=== PATIENT | male | born 1945 | race Caucasian/White ===

== ENCOUNTER → 2017-10-26 | Outpatient (CLI) | payer MEDICARE, OTHER ==
[~2017-10-26] MED LIST: FINA5TAB PO; HYDR-3720 PO; INSU100I10 SQ; LEVO500T69 PO; LISI5TAB PO; LVT.088T PO; SULF1TAB7 PO; TAMS0.4C2 PO
== END ==
LOC: WOUNDCARE 08:03
PROVIDERS: ATTEND Nurse Practitioner
DX: L97.212 Non-pressure chronic ulcer of right calf with fat layer exposed (principal)
CPT/HCPCS: 11042; 11045

== ENCOUNTER → 2017-11-02 | Outpatient (CLI) | payer MEDICARE, OTHER | LOC: WOUNDCARE 08:26 | PROVIDERS: ATTEND Nurse Practitioner | DX: E11.622 Type 2 diabetes mellitus with other skin ulcer (principal); L97.212 Non-pressure chronic ulcer of right calf with fat layer exposed; L97.312 Non-pressure chronic ulcer of right ankle with fat layer exposed; L97.512 Non-pressure chronic ulcer of other part of right foot with fat layer exposed | CPT/HCPCS: 11042 ==

== ENCOUNTER → 2017-11-09 | Outpatient (CLI) | payer MEDICARE, OTHER | LOC: WOUNDCARE 08:46 | PROVIDERS: ATTEND Nurse Practitioner | DX: E11.622 Type 2 diabetes mellitus with other skin ulcer (principal); L97.212 Non-pressure chronic ulcer of right calf with fat layer exposed; L97.512 Non-pressure chronic ulcer of other part of right foot with fat layer exposed; L97.312 Non-pressure chronic ulcer of right ankle with fat layer exposed | CPT/HCPCS: 11042; 11043; 87070; 87075; 87077; 87205 ==

== ENCOUNTER → 2017-11-30 | Outpatient (CLI) | payer MEDICARE, OTHER | LOC: WOUNDCARE 08:49 | PROVIDERS: ATTEND Nurse Practitioner | DX: E11.622 Type 2 diabetes mellitus with other skin ulcer (principal); L97.212 Non-pressure chronic ulcer of right calf with fat layer exposed | CPT/HCPCS: 11042 ==

== ENCOUNTER → 2017-12-07 | Outpatient (CLI) | payer MEDICARE, OTHER | LOC: WOUNDCARE 08:47 | PROVIDERS: ATTEND Nurse Practitioner | DX: E11.622 Type 2 diabetes mellitus with other skin ulcer (principal); L97.212 Non-pressure chronic ulcer of right calf with fat layer exposed | CPT/HCPCS: 11042; 87070; 87075; 87077; 87101; 87205 ==

== ENCOUNTER → 2017-12-14 | Outpatient (CLI) | payer MEDICARE, OTHER ==
[~2017-12-14] MED LIST changes: +ASPI-586 PO; +ATOR40TA70 PO; +FURO20TA4 PO; +GABA-488 PO; +HUM100VI13 SQ; +HYDR-3816 PO; +LEVO112T55 PO; +LISI10TA2 PO; +OXYB5TAB9 PO; +POTA20TA8 PO; +VITA-189 PO
== END ==
LOC: WOUNDCARE 08:49
PROVIDERS: ATTEND Nurse Practitioner
DX: E11.622 Type 2 diabetes mellitus with other skin ulcer (principal); L97.212 Non-pressure chronic ulcer of right calf with fat layer exposed
CPT/HCPCS: 11042

== ENCOUNTER → 2017-12-15 | Outpatient (CLI) | payer MEDICARE, OTHER ==
--- NOTE | 2017-12-15 11:30 | Diagnostic Imaging Report ---
INDICATION: Nonhealing wound of the right foot and ankle. TIME OF EXAMINATION: 11:15 AM. FINDINGS: Three views of the right foot were obtained. Postsurgical changes of amputation at the level of the distal metatarsals and phalanges are noted. There has been partial amputation of the distal first metatarsal and distal second metatarsal. The resection margins appear to be smooth. The overlying soft tissues are intact. No soft tissue gas is identified. No bony destructive changes are detected. There are soft tissue calcifications. Extensive vascular calcifications are present. There is a questionable soft tissue ulcer along the medial aspect of the right foot at the level of the proximal first metatarsal; however, the bony structures deep to this appear to be intact. No periosteal reaction or bone destruction is detected to suggest osteomyelitis. The midfoot and hindfoot are unremarkable. IMPRESSION: Extensive chronic and postsurgical changes, as described. No definite plain film findings to suggest osteomyelitis are identified. Dictated by: Dictated on workstation # [id number]
== END ==
LOC: RAD 10:39
PROVIDERS: ATTEND Nurse Practitioner
DX: E11.622 Type 2 diabetes mellitus with other skin ulcer (principal); L97.212 Non-pressure chronic ulcer of right calf with fat layer exposed; Z98.890 Other specified postprocedural states
CPT/HCPCS: 73630

== ENCOUNTER → 2017-12-15 | Outpatient (CLI) | payer MEDICARE, OTHER ==
--- NOTE | 2017-12-15 11:22 | Diagnostic Imaging Report ---
INDICATION: Non-pressure ulcer to the right foot and ankle. TIME OF EXAMINATION: 11:28 a.m. FINDINGS: Three views of the right ankle were obtained. There are extensive vascular calcifications present. The ankle mortise is maintained. Talar dome is smooth. No fractures are seen. No definite bony destructive changes are identified to suggest osteomyelitis. IMPRESSION: Chronic changes. No acute feature is detected. Dictated by: Dictated on workstation # [id number]
== END ==
LOC: RAD 11:05
PROVIDERS: ATTEND Surgery
DX: E11.622 Type 2 diabetes mellitus with other skin ulcer (principal); L97.212 Non-pressure chronic ulcer of right calf with fat layer exposed
CPT/HCPCS: 73610

== ENCOUNTER → 2017-12-21 | Outpatient (CLI) | payer MEDICARE, OTHER | LOC: WOUNDCARE 08:48 | PROVIDERS: ATTEND Nurse Practitioner | DX: E11.622 Type 2 diabetes mellitus with other skin ulcer (principal); L97.312 Non-pressure chronic ulcer of right ankle with fat layer exposed | CPT/HCPCS: 11042; 11100 ==

== ENCOUNTER → 2017-12-28 | Outpatient (CLI) | payer MEDICARE, OTHER | LOC: WOUNDCARE 08:59 | PROVIDERS: ATTEND Nurse Practitioner | DX: E11.622 Type 2 diabetes mellitus with other skin ulcer (principal); L97.212 Non-pressure chronic ulcer of right calf with fat layer exposed; L97.312 Non-pressure chronic ulcer of right ankle with fat layer exposed; L97.512 Non-pressure chronic ulcer of other part of right foot with fat layer exposed | CPT/HCPCS: 11042 ==

== ENCOUNTER → 2018-01-04 | Outpatient (CLI) | payer MEDICARE, OTHER | LOC: WOUNDCARE 09:01 | PROVIDERS: ATTEND Nurse Practitioner | DX: E11.622 Type 2 diabetes mellitus with other skin ulcer (principal); L97.212 Non-pressure chronic ulcer of right calf with fat layer exposed; L97.312 Non-pressure chronic ulcer of right ankle with fat layer exposed; L97.512 Non-pressure chronic ulcer of other part of right foot with fat layer exposed | CPT/HCPCS: 11042 ==

== ENCOUNTER → 2018-01-11 | Outpatient (CLI) | payer MEDICARE, OTHER | LOC: WOUNDCARE 08:25 | PROVIDERS: ATTEND Nurse Practitioner | DX: E11.622 Type 2 diabetes mellitus with other skin ulcer (principal); L97.512 Non-pressure chronic ulcer of other part of right foot with fat layer exposed; L97.212 Non-pressure chronic ulcer of right calf with fat layer exposed; L97.312 Non-pressure chronic ulcer of right ankle with fat layer exposed; L03.115 Cellulitis of right lower limb | CPT/HCPCS: 11042; 15271 ==

== ENCOUNTER 2018-01-18 12:09 | Outpatient (RCR) | payer MEDICARE, OTHER ==
[2017-12-15 15:43] VITALS: BP 110/59
[2017-12-15 15:46] VITALS: BP 110/59
[2017-12-15 16:45] VITALS: BP 110/59
[2017-12-16 13:17] VITALS: BP 119/55
[2017-12-17 13:06] VITALS: BP 138/66
[2017-12-17] MEDS: VANCOMYCIN 1,750 MG/NS 500 ML IVPB IV SCH ×2 (13:12)
[2017-12-18] MEDS: VANCOMYCIN 1,750 MG/NS 500 ML IVPB IV SCH ×2 (10:24)
[2017-12-18 12:30] VITALS: BP 130/68
[2017-12-19] MEDS: VANCOMYCIN 1,750 MG/NS 500 ML IVPB IV SCH ×2 (09:25)
[2017-12-19 11:32] VITALS: BP 134/74
[2017-12-20] MEDS: VANCOMYCIN 1,750 MG/NS 500 ML IVPB IV SCH ×2 (13:19)
[2017-12-20 13:20] VITALS: BP 120/52
[2017-12-20 15:18] VITALS: BP 120/52
[2017-12-21 12:40] VITALS: BP 118/59
[2017-12-21] MEDS: VANCOMYCIN 1,750 MG/NS 500 ML IVPB IV SCH ×2 (12:56)
[2017-12-21 15:10] VITALS: BP 118/59
[2017-12-22] MEDS: VANCOMYCIN 1,750 MG/NS 500 ML IVPB IV SCH ×2 (13:38)
[2017-12-22 15:45] VITALS: BP 124/58
[2017-12-23 12:30] VITALS: BP 131/70
[2017-12-23] MEDS: VANCOMYCIN 1,750 MG/NS 500 ML IVPB IV SCH ×2 (12:50)
[2017-12-24 12:53] VITALS: BP 109/54
[2017-12-24] MEDS: VANCOMYCIN 1,750 MG/NS 500 ML IVPB IV SCH ×2 (13:32)
[2017-12-24 15:33] VITALS: BP 109/54
[2017-12-25 09:03] VITALS: BP 131/70
[2017-12-25] MEDS: VANCOMYCIN 1,750 MG/NS 500 ML IVPB IV SCH ×2 (09:28)
[2017-12-25 11:39] VITALS: BP 131/70
[2017-12-26] MEDS: VANCOMYCIN 1,750 MG/NS 500 ML IVPB IV SCH ×2 (08:56)
[2017-12-26 09:05] VITALS: BP 142/75
[2017-12-26 11:00] VITALS: BP 142/75
[2017-12-27 12:53] VITALS: BP 116/56
[2017-12-27] MEDS: VANCOMYCIN 1,750 MG/NS 500 ML IVPB IV SCH ×2 (13:11)
[2017-12-27 15:05] VITALS: BP 116/56
[2017-12-28] MEDS: VANCOMYCIN 1,750 MG/NS 500 ML IVPB IV SCH ×2 (13:12)
[2017-12-28 13:15] VITALS: BP 139/64
[2017-12-29] MEDS: VANCOMYCIN 1,750 MG/NS 500 ML IVPB IV SCH ×2 (13:49)
[2017-12-29 14:35] VITALS: BP 112/61
[2017-12-29 15:55] VITALS: BP 112/61
[2017-12-30] MEDS: VANCOMYCIN 1,750 MG/NS 500 ML IVPB IV SCH ×2 (13:02)
[2017-12-30 13:09] VITALS: BP 122/62
[2017-12-31 12:20] VITALS: BP 115/61
[2017-12-31 12:21] VITALS: BP 115/61
[2017-12-31] MEDS: VANCOMYCIN 1,750 MG/NS 500 ML IVPB IV SCH ×2 (12:40)
[2017-12-31 14:47] VITALS: BP 115/61
[2018-01-01 09:05] VITALS: BP 137/71
[2018-01-01] MEDS: VANCOMYCIN 1,750 MG/NS 500 ML IVPB IV SCH ×2 (09:21)
[2018-01-02 09:00] VITALS: BP 128/95
[2018-01-02] MEDS: VANCOMYCIN 1,750 MG/NS 500 ML IVPB IV SCH ×2 (09:12)
[2018-01-03] MEDS: VANCOMYCIN 1,750 MG/NS 500 ML IVPB IV SCH ×2 (12:58)
[2018-01-03 15:10] VITALS: BP 119/81
[2018-01-05] MEDS: VANCOMYCIN 1,750 MG/NS 500 ML IVPB IV SCH ×2 (12:25)
[2018-01-05 12:26] VITALS: BP 114/61
[2018-01-05 14:33] VITALS: BP 114/61
[2018-01-06] MEDS: VANCOMYCIN 1,750 MG/NS 500 ML IVPB IV SCH ×2 (13:20)
[2018-01-06 15:36] VITALS: BP 122/69
[2018-01-07] MEDS: VANCOMYCIN 1,750 MG/NS 500 ML IVPB IV SCH ×2 (13:03)
[2018-01-07 15:03] VITALS: BP 124/64
[2018-01-08 09:20] VITALS: BP 125/69
[2018-01-08] MEDS: VANCOMYCIN 1,750 MG/NS 500 ML IVPB IV SCH ×2 (09:24)
[2018-01-09 09:13] VITALS: BP 143/77
[2018-01-09] MEDS: VANCOMYCIN 1,750 MG/NS 500 ML IVPB IV SCH ×2 (09:15)
[2018-01-10] MEDS: VANCOMYCIN 1,750 MG/NS 500 ML IVPB IV SCH ×2 (13:20)
[2018-01-10 15:30] VITALS: BP 115/60
[2018-01-13] MEDS: VANCOMYCIN 1,750 MG/NS 500 ML IVPB IV SCH ×2 (13:40)
[2018-01-13 15:45] VITALS: BP 132/65
[2018-01-14] MEDS: VANCOMYCIN 1,750 MG/NS 500 ML IVPB IV SCH ×2 (12:36)
[2018-01-14 13:20] VITALS: BP 118/66
[2018-01-15] MEDS: VANCOMYCIN 1,750 MG/NS 500 ML IVPB IV SCH ×2 (09:26)
[2018-01-15 11:34] VITALS: BP 134/73
[2018-01-16] MEDS: VANCOMYCIN 1,750 MG/NS 500 ML IVPB IV SCH ×2 (09:48)
[2018-01-16 11:52] VITALS: BP 125/68
[2018-01-17] MEDS: VANCOMYCIN 1,750 MG/NS 500 ML IVPB IV SCH ×2 (13:18)
[2018-01-17 15:34] VITALS: BP 129/68
[~2018-01-18] VITALS: Ht 167.6 cm; Wt 75.3 kg
[~2018-01-18 12:09] MED LIST changes: +INFLUENZA TRIvalent 2017-2018 0.5 ML/45 MCG SYR IM ONE; +TROUGH ORDER-PHARMACY XX NR; +TROUGH ORDER-PHARMACY XX ONE; +VANCOMYCIN 1,750 MG/NS 500 ML IVPB IV NR; +VANCOMYCIN 1250 MG/NS 250 ML IVPB IV SCH; +VANCOMYCIN INJECTION 500 MG in NS (IVPB) 100 ML IV NR
[2018-01-18 12:40] VITALS: BP 129/65
[2018-01-21] MEDS ORDERED: TROUGH ORDER-PHARMACY XX NR (13:00)
== END 2018-03-15 | disposition home or self-care (01) ==
LOC: SDC 12:09
PROVIDERS: ATTEND Nurse Practitioner
DX: E11.622 Type 2 diabetes mellitus with other skin ulcer (principal); L97.212 Non-pressure chronic ulcer of right calf with fat layer exposed
CPT/HCPCS: 36415; 36569; 76937; 80202; 82565; 96365; 96366; 99211; 99212

== ENCOUNTER 2019-01-20 10:51 | Outpatient (RCR) | payer MEDICARE, OTHER ==
[2018-12-10 09:00] VITALS: BP 128/63
[2018-12-10] MEDS: cefTRIAXone 2,000 MG/SWFI 20 ML IV PUSH IV SCH ×2 (09:40)
[2018-12-10] MEDS: DAPTOMYCIN IV SCH (09:45)
[2018-12-10] MEDS: NS IV SCH (09:45)
[2018-12-11 09:05] VITALS: BP 103/57
[2018-12-11] MEDS: cefTRIAXone 2,000 MG/SWFI 20 ML IV PUSH IV SCH ×2 (09:20)
[2018-12-11] MEDS: NS IV SCH (09:30)
[2018-12-11] MEDS: DAPTOMYCIN IV SCH (09:30)
[2018-12-12] MEDS: cefTRIAXone 2,000 MG/SWFI 20 ML IV PUSH IV SCH ×2 (14:40)
[2018-12-12 14:48] LABS: BASOPHILS % (AUTO) 0 % (0-10); EOSINOPHILS # (AUTO) 0.2 10^3/uL (0.0-0.3); EOSINOPHILS % (AUTO) 4 % (0-10); HEMATOCRIT 36 % (40-54); HEMOGLOBIN 12.6 G/DL (13.3-17.7); LYMPHOCYTES # (AUTO) 0.5 X 10^3 (1.0-4.0); LYMPHOCYTES % (AUTO) 7 % (12-44); MEAN CORPUSCULAR HEMOGLOBIN 33 PG (25-34); MEAN CORPUSCULAR HGB CONC 35 G/DL (32-36); MEAN CORPUSCULAR VOLUME 96 FL (80-99); MEAN PLATELET VOLUME 9.4 FL (7.4-10.4); MONOCYTES # (AUTO) 0.9 X 10^3 (0.0-1.0); MONOCYTES % (AUTO) 13 % (0-12); NEUTROPHILS # (AUTO) 5.3 X 10^3 (1.8-7.8); NEUTROPHILS % (AUTO) 77 % (42-75); PLATELET COUNT 151 10^3/uL (130-400); RED CELL DISTRIBUTION WIDTH 15.8 % (10.0-14.5); WHITE BLOOD COUNT 6.9 10^3/uL (4.3-11.0)
[2018-12-12 15:09] LABS: ALANINE AMINOTRANSFERASE 11 U/L (0-55); ALBUMIN 3.4 GM/DL (3.2-4.5); ALKALINE PHOSPHATASE 96 U/L (40-136); BILIRUBIN,TOTAL 0.8 MG/DL (0.1-1.0); BUN/CREATININE RATIO 25; CALCIUM 9.2 MG/DL (8.5-10.1); CARBON DIOXIDE 20 MMOL/L (21-32); CHLORIDE 104 MMOL/L (98-107); CREATINE KINASE 49 U/L (30-200); CREATININE SERUM 1.02 MG/DL (0.60-1.30); GFR ESTIMATED > 60; GLUCOSE 174 MG/DL (70-105); POTASSIUM 4.5 MMOL/L (3.6-5.0); SODIUM 133 MMOL/L (135-145); TOTAL PROTEIN 6.5 GM/DL (6.4-8.2)
[2018-12-12] MEDS: NS IV SCH (15:09)
[2018-12-12] MEDS: DAPTOMYCIN IV SCH (15:09)
[2018-12-12 15:20] LABS: EOSINOPHILS % (MANUAL) 5 %; ERYTHROCYTE SEDIMENTATION RATE 12 MM/HR (0-30); LYMPHOCYTES % (MANUAL) 3 %; MONOCYTES % (MANUAL) 8 %; NEUTROPHILS % (MANUAL) 84 %; RBC MORPH NORMAL
[2018-12-12 16:00] VITALS: BP 123/60
[2018-12-13] MEDS: cefTRIAXone 2,000 MG/SWFI 20 ML IV PUSH IV SCH ×2 (14:40)
[2018-12-13] MEDS: DAPTOMYCIN IV SCH (15:12)
[2018-12-13] MEDS: NS IV SCH (15:12)
[2018-12-13 15:42] VITALS: BP 127/58
[2018-12-14] MEDS: cefTRIAXone 2,000 MG/SWFI 20 ML IV PUSH IV SCH ×2 (14:00)
[2018-12-14] MEDS: DAPTOMYCIN IV SCH (14:30)
[2018-12-14] MEDS: NS IV SCH (14:30)
[2018-12-14 15:10] VITALS: BP 111/64
[2018-12-15 13:10] VITALS: BP 109/54
[2018-12-15] MEDS: cefTRIAXone 2,000 MG/SWFI 20 ML IV PUSH IV SCH ×2 (13:24)
--- NOTE | 2018-12-15 13:30 | NUR ---
MIDLINE LEAKING WHEN FLUSHED. EXCESSIVE BLEEDING ET DRAINAGE NOTED. MIDLINE DC'D.
[2018-12-15] MEDS: DAPTOMYCIN IV SCH (14:15)
[2018-12-15] MEDS: NS IV SCH (14:15)
[2018-12-16] MEDS: cefTRIAXone 2,000 MG/SWFI 20 ML IV PUSH IV SCH ×2 (13:00)
[2018-12-16 13:13] VITALS: BP 109/71
[2018-12-16] MEDS: DAPTOMYCIN IV SCH (13:18)
[2018-12-16] MEDS: NS IV SCH (13:18)
[2018-12-17] MEDS: NS IV SCH (09:56)
[2018-12-17] MEDS: DAPTOMYCIN IV SCH (09:56)
[2018-12-17] MEDS: cefTRIAXone 2,000 MG/SWFI 20 ML IV PUSH IV SCH ×2 (09:56)
[2018-12-17 10:00] VITALS: BP 134/70
[2018-12-18 09:20] VITALS: BP 137/66
[2018-12-18] MEDS: NS IV SCH (09:53)
[2018-12-18] MEDS: DAPTOMYCIN IV SCH (09:53)
[2018-12-18] MEDS: cefTRIAXone 2,000 MG/SWFI 20 ML IV PUSH IV SCH ×2 (09:53)
[2018-12-19] MEDS: cefTRIAXone 2,000 MG/SWFI 20 ML IV PUSH IV SCH ×2 (13:42)
[2018-12-19 13:50] VITALS: BP 121/69
[2018-12-19] MEDS: DAPTOMYCIN IV SCH (14:16)
[2018-12-19] MEDS: NS IV SCH (14:16)
[2018-12-20 13:50] VITALS: BP 118/70
[2018-12-20] MEDS: cefTRIAXone 2,000 MG/SWFI 20 ML IV PUSH IV SCH ×2 (13:50)
[2018-12-20] MEDS: NS IV SCH (13:58)
[2018-12-20] MEDS: DAPTOMYCIN IV SCH (13:58)
[2018-12-20 14:09] LABS: BASOPHILS % (AUTO) 0 % (0-10); EOSINOPHILS # (AUTO) 0.3 10^3/uL (0.0-0.3); EOSINOPHILS % (AUTO) 4 % (0-10); HEMATOCRIT 39 % (40-54); HEMOGLOBIN 13.6 G/DL (13.3-17.7); LYMPHOCYTES # (AUTO) 0.6 X 10^3 (1.0-4.0); LYMPHOCYTES % (AUTO) 8 % (12-44); MEAN CORPUSCULAR HGB CONC 35 G/DL (32-36); MEAN CORPUSCULAR VOLUME 97 FL (80-99); MONOCYTES # (AUTO) 0.9 X 10^3 (0.0-1.0); MONOCYTES % (AUTO) 12 % (0-12); NEUTROPHILS % (AUTO) 77 % (42-75); PLATELET COUNT 152 10^3/uL (130-400); WHITE BLOOD COUNT 7.8 10^3/uL (4.3-11.0)
[2018-12-20 14:11] LABS: MEAN CORPUSCULAR HEMOGLOBIN 33 PG (25-34)
[2018-12-20 14:13] LABS: ALANINE AMINOTRANSFERASE 13 U/L (0-55); ALBUMIN 3.7 GM/DL (3.2-4.5); ALKALINE PHOSPHATASE 100 U/L (40-136); BILIRUBIN,TOTAL 0.9 MG/DL (0.1-1.0); BUN/CREATININE RATIO 21; CALCIUM 9.3 MG/DL (8.5-10.1); CARBON DIOXIDE 26 MMOL/L (21-32); CHLORIDE 102 MMOL/L (98-107); CREATINE KINASE 28 U/L (30-200); CREATININE SERUM 1.07 MG/DL (0.60-1.30); GFR ESTIMATED > 60; GLUCOSE 225 MG/DL (70-105); POTASSIUM 4.7 MMOL/L (3.6-5.0); SODIUM 134 MMOL/L (135-145); TOTAL PROTEIN 7.3 GM/DL (6.4-8.2)
[2018-12-20 15:12] LABS: BAND NEUTROPHILS 0 %; BASOPHILS % (MANUAL) 1 %; EOSINOPHILS % (MANUAL) 2 %; LYMPHOCYTES % (MANUAL) 6 %; MONOCYTES % (MANUAL) 7 %; NEUTROPHILS % (MANUAL) 84 %
[2018-12-20 15:13] LABS: ANISOCYTOSIS SLIGHT; ERYTHROCYTE SEDIMENTATION RATE 13 MM/HR (0-30); POLYCHROMASIA SLIGHT
[2018-12-21] MEDS: cefTRIAXone 2,000 MG/SWFI 20 ML IV PUSH IV SCH ×2 (13:49)
[2018-12-21] MEDS: DAPTOMYCIN IV SCH (13:58)
[2018-12-21] MEDS: NS IV SCH (13:58)
[2018-12-21 14:35] VITALS: BP 172/69
[2018-12-22] MEDS: cefTRIAXone 2,000 MG/SWFI 20 ML IV PUSH IV SCH ×2 (12:03)
[2018-12-22] MEDS: NS IV SCH (12:15)
[2018-12-22] MEDS: DAPTOMYCIN IV SCH (12:15)
[2018-12-22 12:47] VITALS: BP 119/62
[2018-12-23 14:10] VITALS: BP 110/61
[2018-12-23] MEDS: NS IV SCH (14:20)
[2018-12-23] MEDS: DAPTOMYCIN IV SCH (14:20)
[2018-12-23] MEDS: cefTRIAXone 2,000 MG/SWFI 20 ML IV PUSH IV SCH ×2 (14:50)
[2018-12-24] MEDS: NS IV SCH (09:30)
[2018-12-24] MEDS: DAPTOMYCIN IV SCH (09:30)
[2018-12-24] MEDS: cefTRIAXone 2,000 MG/SWFI 20 ML IV PUSH IV SCH ×2 (10:00)
[2018-12-24 10:05] VITALS: BP 126/70
[2018-12-25] MEDS: cefTRIAXone 2,000 MG/SWFI 20 ML IV PUSH IV SCH ×2 (09:20)
[2018-12-25 09:25] VITALS: BP 127/71
[2018-12-25] MEDS: NS IV SCH (09:25)
[2018-12-25] MEDS: DAPTOMYCIN IV SCH (09:25)
[2018-12-26] MEDS: cefTRIAXone 2,000 MG/SWFI 20 ML IV PUSH IV SCH ×2 (14:22)
[2018-12-26 14:32] LABS: BASOPHILS % (AUTO) 0 % (0-10); EOSINOPHILS # (AUTO) 0.3 10^3/uL (0.0-0.3); EOSINOPHILS % (AUTO) 4 % (0-10); HEMATOCRIT 38 % (40-54); HEMOGLOBIN 13.1 G/DL (13.3-17.7); LYMPHOCYTES # (AUTO) 0.6 X 10^3 (1.0-4.0); LYMPHOCYTES % (AUTO) 8 % (12-44); MEAN CORPUSCULAR HEMOGLOBIN 33 PG (25-34); MEAN CORPUSCULAR HGB CONC 35 G/DL (32-36); MEAN CORPUSCULAR VOLUME 96 FL (80-99); MEAN PLATELET VOLUME 9.4 FL (7.4-10.4); MONOCYTES # (AUTO) 0.8 X 10^3 (0.0-1.0); MONOCYTES % (AUTO) 12 % (0-12); NEUTROPHILS # (AUTO) 5.1 X 10^3 (1.8-7.8); NEUTROPHILS % (AUTO) 76 % (42-75); PLATELET COUNT 148 10^3/uL (130-400); RED CELL DISTRIBUTION WIDTH 15.7 % (10.0-14.5); WHITE BLOOD COUNT 6.8 10^3/uL (4.3-11.0)
[2018-12-26] MEDS: DAPTOMYCIN IV SCH (14:37)
[2018-12-26] MEDS: NS IV SCH (14:37)
[2018-12-26 14:56] LABS: ERYTHROCYTE SEDIMENTATION RATE 11 MM/HR (0-30)
[2018-12-26 15:01] LABS: ALBUMIN 3.5 GM/DL (3.2-4.5); BILIRUBIN,TOTAL 0.8 MG/DL (0.1-1.0); CALCIUM 9.7 MG/DL (8.5-10.1); CREATININE SERUM 1.2 MG/DL (0.60-1.30); POTASSIUM 5.1 MMOL/L (3.6-5.0); TOTAL PROTEIN 6.9 GM/DL (6.4-8.2)
[2018-12-26 15:05] LABS: ANISOCYTOSIS SLIGHT; BASOPHILS % (MANUAL) 0 %; EOSINOPHILS % (MANUAL) 4 %; LYMPHOCYTES % (MANUAL) 6 %; MONOCYTES % (MANUAL) 10 %; NEUTROPHILS % (MANUAL) 80 %
[2018-12-26 15:07] LABS: POLYCHROMASIA SLIGHT
[2018-12-26 15:08] LABS: BAND NEUTROPHILS 0 %
[2018-12-26 15:15] VITALS: BP 130/93
[2018-12-27] MEDS: DAPTOMYCIN IV SCH (13:40)
[2018-12-27] MEDS: NS IV SCH (13:40)
[2018-12-27 13:41] VITALS: BP 127/76
[2018-12-27] MEDS: cefTRIAXone 2,000 MG/SWFI 20 ML IV PUSH IV SCH ×2 (13:41)
[2018-12-28] MEDS: cefTRIAXone 2,000 MG/SWFI 20 ML IV PUSH IV SCH ×2 (11:20)
[2018-12-28] MEDS: DAPTOMYCIN IV SCH (11:54)
[2018-12-28] MEDS: NS IV SCH (11:54)
[2018-12-28 12:23] VITALS: BP 124/70
[2018-12-29] MEDS: cefTRIAXone 2,000 MG/SWFI 20 ML IV PUSH IV SCH ×2 (12:28)
[2018-12-29 12:38] VITALS: BP 106/70
[2018-12-29] MEDS: DAPTOMYCIN IV SCH (12:38)
[2018-12-29] MEDS: NS IV SCH (12:38)
[2018-12-30] MEDS: cefTRIAXone 2,000 MG/SWFI 20 ML IV PUSH IV SCH ×2 (13:52)
[2018-12-30] MEDS: NS IV SCH (13:56)
[2018-12-30] MEDS: DAPTOMYCIN IV SCH (13:56)
[2018-12-30 14:30] VITALS: BP 106/56
[2018-12-31 08:55] VITALS: BP 114/66
[2018-12-31] MEDS: cefTRIAXone 2,000 MG/SWFI 20 ML IV PUSH IV SCH ×2 (08:56)
[2018-12-31] MEDS: DAPTOMYCIN IV SCH (09:27)
[2018-12-31] MEDS: NS IV SCH (09:27)
[2019-01-01] MEDS: cefTRIAXone 2,000 MG/SWFI 20 ML IV PUSH IV SCH ×2 (08:57)
[2019-01-01] MEDS: NS IV SCH (09:24)
[2019-01-01] MEDS: DAPTOMYCIN IV SCH (09:24)
[2019-01-01 10:01] VITALS: BP 117/76
[2019-01-02] MEDS: cefTRIAXone 2,000 MG/SWFI 20 ML IV PUSH IV SCH ×2 (13:20)
[2019-01-02 13:34] LABS: BASOPHILS % (AUTO) 0 % (0-10); EOSINOPHILS # (AUTO) 0.2 10^3/uL (0.0-0.3); EOSINOPHILS % (AUTO) 3 % (0-10); HEMATOCRIT 40 % (40-54); HEMOGLOBIN 13.6 G/DL (13.3-17.7); LYMPHOCYTES # (AUTO) 0.7 X 10^3 (1.0-4.0); LYMPHOCYTES % (AUTO) 9 % (12-44); MEAN CORPUSCULAR HEMOGLOBIN 33 PG (25-34); MEAN CORPUSCULAR HGB CONC 34 G/DL (32-36); MEAN CORPUSCULAR VOLUME 97 FL (80-99); MEAN PLATELET VOLUME 9.7 FL (7.4-10.4); MONOCYTES % (AUTO) 12 % (0-12); NEUTROPHILS % (AUTO) 76 % (42-75); PLATELET COUNT 141 10^3/uL (130-400); RED CELL DISTRIBUTION WIDTH 15.5 % (10.0-14.5); WHITE BLOOD COUNT 7.9 10^3/uL (4.3-11.0)
[2019-01-02] MEDS: NS IV SCH (13:35)
[2019-01-02] MEDS: DAPTOMYCIN IV SCH (13:35)
[2019-01-02 13:51] LABS: ALANINE AMINOTRANSFERASE 13 U/L (0-55); ALBUMIN 3.8 GM/DL (3.2-4.5); ALKALINE PHOSPHATASE 90 U/L (40-136); BILIRUBIN,TOTAL 0.8 MG/DL (0.1-1.0); BUN/CREATININE RATIO 21; CALCIUM 9.9 MG/DL (8.5-10.1); CARBON DIOXIDE 26 MMOL/L (21-32); CHLORIDE 101 MMOL/L (98-107); CREATINE KINASE 46 U/L (30-200); CREATININE SERUM 1.12 MG/DL (0.60-1.30); GFR ESTIMATED > 60; GLUCOSE 171 MG/DL (70-105); POTASSIUM 4.3 MMOL/L (3.6-5.0); SODIUM 136 MMOL/L (135-145); TOTAL PROTEIN 7.2 GM/DL (6.4-8.2)
[2019-01-02 14:05] VITALS: BP 124/70
[2019-01-02 14:05] LABS: ERYTHROCYTE SEDIMENTATION RATE 12 MM/HR (0-30)
[2019-01-02 14:19] LABS: BAND NEUTROPHILS 0 %; LYMPHOCYTES % (MANUAL) 10 %; NEUTROPHILS % (MANUAL) 79 %
[2019-01-02 14:20] LABS: ANISOCYTOSIS SLIGHT; BASOPHILS % (MANUAL) 0 %; EOSINOPHILS % (MANUAL) 3 %; MONOCYTES % (MANUAL) 7 %; MYELOCYTES % 1 %
[2019-01-03] MEDS: cefTRIAXone 2,000 MG/SWFI 20 ML IV PUSH IV SCH ×2 (11:13)
[2019-01-03] MEDS: DAPTOMYCIN IV SCH (11:45)
[2019-01-03] MEDS: NS IV SCH (11:45)
[2019-01-03 12:20] VITALS: BP 117/66
[2019-01-04] MEDS: cefTRIAXone 2,000 MG/SWFI 20 ML IV PUSH IV SCH ×2 (11:13)
[2019-01-04] MEDS: NS IV SCH (11:22)
[2019-01-04] MEDS: DAPTOMYCIN IV SCH (11:22)
[2019-01-04 11:29] VITALS: BP_SYST 121; BP_DIAS 1; BP_DIAS 71
[2019-01-05] MEDS: cefTRIAXone 2,000 MG/SWFI 20 ML IV PUSH IV SCH ×2 (13:30)
[2019-01-05] MEDS: DAPTOMYCIN IV SCH (13:44)
[2019-01-05] MEDS: NS IV SCH (13:44)
[2019-01-05 13:47] VITALS: BP 102/64
[2019-01-06] MEDS: cefTRIAXone 2,000 MG/SWFI 20 ML IV PUSH IV SCH ×2 (11:55)
[2019-01-06] MEDS: DAPTOMYCIN IV SCH (11:58)
[2019-01-06] MEDS: NS IV SCH (11:58)
[2019-01-06 12:35] VITALS: BP 112/70
[2019-01-07] MEDS: NS IV SCH (09:13)
[2019-01-07] MEDS: DAPTOMYCIN IV SCH (09:13)
[2019-01-07] MEDS: cefTRIAXone 2,000 MG/SWFI 20 ML IV PUSH IV SCH ×2 (09:44)
[2019-01-07 09:53] VITALS: BP 121/68
[2019-01-08] MEDS: DAPTOMYCIN IV SCH (09:03)
[2019-01-08] MEDS: NS IV SCH (09:03)
[2019-01-08] MEDS: cefTRIAXone 2,000 MG/SWFI 20 ML IV PUSH IV SCH ×2 (09:33)
[2019-01-08 09:42] VITALS: BP 116/68
[2019-01-09 13:41] VITALS: BP 107/66
[2019-01-09] MEDS: DAPTOMYCIN IV SCH (13:47)
[2019-01-09] MEDS: NS IV SCH (13:47)
[2019-01-09 13:53] LABS: BASOPHILS % (AUTO) 0 % (0-10); EOSINOPHILS # (AUTO) 0.3 10^3/uL (0.0-0.3); EOSINOPHILS % (AUTO) 4 % (0-10); HEMATOCRIT 40 % (40-54); HEMOGLOBIN 13.8 G/DL (13.3-17.7); LYMPHOCYTES # (AUTO) 0.7 X 10^3 (1.0-4.0); LYMPHOCYTES % (AUTO) 8 % (12-44); MEAN CORPUSCULAR HEMOGLOBIN 33 PG (25-34); MEAN CORPUSCULAR HGB CONC 35 G/DL (32-36); MEAN CORPUSCULAR VOLUME 96 FL (80-99); MEAN PLATELET VOLUME 9.6 FL (7.4-10.4); MONOCYTES # (AUTO) 1.1 X 10^3 (0.0-1.0); MONOCYTES % (AUTO) 12 % (0-12); NEUTROPHILS # (AUTO) 6.5 X 10^3 (1.8-7.8); NEUTROPHILS % (AUTO) 76 % (42-75); PLATELET COUNT 152 10^3/uL (130-400); RED CELL DISTRIBUTION WIDTH 15.6 % (10.0-14.5); WHITE BLOOD COUNT 8.6 10^3/uL (4.3-11.0)
[2019-01-09 14:16] LABS: ERYTHROCYTE SEDIMENTATION RATE 12 MM/HR (0-30)
[2019-01-09] MEDS: cefTRIAXone 2,000 MG/SWFI 20 ML IV PUSH IV SCH ×2 (14:16)
[2019-01-09 14:19] LABS: ALBUMIN 3.9 GM/DL (3.2-4.5); BILIRUBIN,TOTAL 1.1 MG/DL (0.1-1.0); CALCIUM 9.8 MG/DL (8.5-10.1); CREATININE SERUM 1.27 MG/DL (0.60-1.30); POTASSIUM 4.5 MMOL/L (3.6-5.0); TOTAL PROTEIN 7.4 GM/DL (6.4-8.2)
[2019-01-09 14:38] LABS: BAND NEUTROPHILS 0 %; BASOPHILS % (MANUAL) 0 %; EOSINOPHILS % (MANUAL) 6 %; LYMPHOCYTES % (MANUAL) 10 %; MONOCYTES % (MANUAL) 11 %; NEUTROPHILS % (MANUAL) 73 %; RBC MORPH NORMAL
[2019-01-10 13:15] VITALS: BP 111/72
[2019-01-10] MEDS: cefTRIAXone 2,000 MG/SWFI 20 ML IV PUSH IV SCH ×2 (13:41)
[2019-01-10] MEDS: DAPTOMYCIN IV SCH (13:45)
[2019-01-10] MEDS: NS IV SCH (13:45)
[2019-01-11 14:35] VITALS: BP 131/71
[2019-01-11] MEDS: cefTRIAXone 2,000 MG/SWFI 20 ML IV PUSH IV SCH ×2 (15:17)
[2019-01-11] MEDS: NS IV SCH (15:17)
[2019-01-11] MEDS: DAPTOMYCIN IV SCH (15:17)
[2019-01-12] MEDS: NS IV SCH (13:24)
[2019-01-12] MEDS: DAPTOMYCIN IV SCH (13:24)
[2019-01-12] MEDS: cefTRIAXone 2,000 MG/SWFI 20 ML IV PUSH IV SCH ×2 (13:57)
[2019-01-12 14:02] VITALS: BP 121/58
[2019-01-13] MEDS: cefTRIAXone 2,000 MG/SWFI 20 ML IV PUSH IV SCH ×2 (14:27)
[2019-01-13] MEDS: DAPTOMYCIN IV SCH (14:29)
[2019-01-13] MEDS: NS IV SCH (14:29)
[2019-01-13 15:03] VITALS: BP 125/57
[2019-01-14] MEDS: NS IV SCH (09:00)
[2019-01-14] MEDS: DAPTOMYCIN IV SCH (09:00)
[2019-01-14] MEDS: cefTRIAXone 2,000 MG/SWFI 20 ML IV PUSH IV SCH ×2 (09:31)
[2019-01-14 09:37] VITALS: BP 117/61
[2019-01-15] MEDS: DAPTOMYCIN IV SCH (08:58)
[2019-01-15] MEDS: NS IV SCH (08:58)
[2019-01-15 09:17] VITALS: BP 132/78
[2019-01-15] MEDS: cefTRIAXone 2,000 MG/SWFI 20 ML IV PUSH IV SCH ×2 (09:30)
[2019-01-16] MEDS: cefTRIAXone 2,000 MG/SWFI 20 ML IV PUSH IV SCH ×2 (13:41)
[2019-01-16] MEDS: DAPTOMYCIN IV SCH (13:41)
[2019-01-16] MEDS: NS IV SCH (13:41)
[2019-01-16 13:45] LABS: BASOPHILS % (AUTO) 0 % (0-10); EOSINOPHILS # (AUTO) 0.2 10^3/uL (0.0-0.3); EOSINOPHILS % (AUTO) 3 % (0-10); HEMATOCRIT 38 % (40-54); HEMOGLOBIN 13.2 G/DL (13.3-17.7); LYMPHOCYTES # (AUTO) 0.6 X 10^3 (1.0-4.0); LYMPHOCYTES % (AUTO) 8 % (12-44); MEAN CORPUSCULAR HEMOGLOBIN 33 PG (25-34); MEAN CORPUSCULAR HGB CONC 35 G/DL (32-36); MEAN CORPUSCULAR VOLUME 96 FL (80-99); MEAN PLATELET VOLUME 9.6 FL (7.4-10.4); MONOCYTES # (AUTO) 0.8 X 10^3 (0.0-1.0); MONOCYTES % (AUTO) 11 % (0-12); NEUTROPHILS # (AUTO) 6.1 X 10^3 (1.8-7.8); NEUTROPHILS % (AUTO) 78 % (42-75); PLATELET COUNT 152 10^3/uL (130-400); RED CELL DISTRIBUTION WIDTH 15.4 % (10.0-14.5); WHITE BLOOD COUNT 7.8 10^3/uL (4.3-11.0)
[2019-01-16 13:47] VITALS: BP 120/79
[2019-01-16 14:04] LABS: ALANINE AMINOTRANSFERASE 13 U/L (0-55); ALBUMIN 3.7 GM/DL (3.2-4.5); ALKALINE PHOSPHATASE 95 U/L (40-136); BUN/CREATININE RATIO 22; CARBON DIOXIDE 23 MMOL/L (21-32); CHLORIDE 101 MMOL/L (98-107); CREATINE KINASE 46 U/L (30-200); CREATININE SERUM 1.17 MG/DL (0.60-1.30); GFR ESTIMATED > 60; GLUCOSE 200 MG/DL (70-105); POTASSIUM 4.8 MMOL/L (3.6-5.0); SODIUM 134 MMOL/L (135-145); TOTAL PROTEIN 7.3 GM/DL (6.4-8.2)
[2019-01-16 14:37] LABS: ERYTHROCYTE SEDIMENTATION RATE 12 MM/HR (0-30)
[2019-01-16 14:44] LABS: BAND NEUTROPHILS 1 %; BASOPHILS % (MANUAL) 0 %; EOSINOPHILS % (MANUAL) 4 %; LYMPHOCYTES % (MANUAL) 9 %; MONOCYTES % (MANUAL) 8 %; NEUTROPHILS % (MANUAL) 78 %; RBC MORPH NORMAL
[2019-01-17] MEDS: cefTRIAXone 2,000 MG/SWFI 20 ML IV PUSH IV SCH ×2 (10:02)
[2019-01-17] MEDS: NS IV SCH (10:09)
[2019-01-17] MEDS: DAPTOMYCIN IV SCH (10:09)
[2019-01-17 10:17] VITALS: BP 106/56
[2019-01-18 13:07] VITALS: BP 115/57
[2019-01-18] MEDS: cefTRIAXone 2,000 MG/SWFI 20 ML IV PUSH IV SCH ×2 (13:15)
[2019-01-18] MEDS: DAPTOMYCIN IV SCH (13:30)
[2019-01-18] MEDS: NS IV SCH (13:30)
[2019-01-19] MEDS: NS IV SCH (13:47)
[2019-01-19] MEDS: DAPTOMYCIN IV SCH (13:47)
[2019-01-19] MEDS: cefTRIAXone 2,000 MG/SWFI 20 ML IV PUSH IV SCH ×2 (14:24)
[2019-01-19 14:28] VITALS: BP 103/58
[~2019-01-20] VITALS: Ht 167.6 cm; Wt 77.1 kg
[~2019-01-20 10:51] MED LIST changes: -INFLUENZA TRIvalent 2017-2018 0.5 ML/45 MCG SYR IM ONE; -TROUGH ORDER-PHARMACY XX NR; -TROUGH ORDER-PHARMACY XX ONE; -VANCOMYCIN 1,750 MG/NS 500 ML IVPB IV NR; -VANCOMYCIN 1250 MG/NS 250 ML IVPB IV SCH; -VANCOMYCIN INJECTION 500 MG in NS (IVPB) 100 ML IV NR
[2019-01-20] MEDS: cefTRIAXone 2,000 MG/SWFI 20 ML IV PUSH IV SCH ×2 (11:00)
[2019-01-20] MEDS: NS IV SCH (11:12)
[2019-01-20] MEDS: DAPTOMYCIN IV SCH (11:12)
[2019-01-20 11:46] VITALS: BP 108/67
== END 2019-01-20 11:47 | disposition home or self-care (01) ==
LOC: SDC 10:51
PROVIDERS: ATTEND Internal Medicine Infectious Disease
DX: M86.60 Other chronic osteomyelitis, unspecified site (principal); A49.02 Methicillin resistant Staphylococcus aureus infection, unspecified site; A49.8 Other bacterial infections of unspecified site; S81.801A Unspecified open wound, right lower leg, initial encounter; X58.XXXA Exposure to other specified factors, initial encounter
CPT/HCPCS: 36415; 80053; 82550; 85007; 85027; 85652; 96365; 96374; 96375; 96376; 99211

== ENCOUNTER 2019-07-28 13:44 | Outpatient (RCR) | payer MEDICARE, OTHER ==
[2019-06-17] MEDS: ERTAPENEM 1 GM/NS 50 ML IVPB IV SCH ×2 (10:42)
[2019-06-17 11:10] VITALS: BP 116/61
[2019-06-18 09:35] VITALS: BP 109/59
[2019-06-18] MEDS: ERTAPENEM 1 GM/NS 50 ML IVPB IV SCH ×2 (09:35)
--- NOTE | 2019-06-18 10:12 | NUR ---
PICC SITE GUARDIVA SATURATED WITH DRIED BLOOD. PICC DRESSING CHANGE TO SITE, NO ACTIVE BLEEDING NOTED.
[2019-06-19 13:37] LABS: BASOPHILS % (AUTO) 0 % (0-10); EOSINOPHILS # (AUTO) 0.3 10^3/uL (0.0-0.3); EOSINOPHILS % (AUTO) 3 % (0-10); HEMATOCRIT 39 % (40-54); HEMOGLOBIN 13.3 G/DL (13.3-17.7); LYMPHOCYTES # (AUTO) 0.7 X 10^3 (1.0-4.0); LYMPHOCYTES % (AUTO) 8 % (12-44); MEAN CORPUSCULAR HEMOGLOBIN 33 PG (25-34); MEAN CORPUSCULAR HGB CONC 34 G/DL (32-36); MEAN CORPUSCULAR VOLUME 96 FL (80-99); MEAN PLATELET VOLUME 9.2 FL (7.4-10.4); MONOCYTES # (AUTO) 1.1 X 10^3 (0.0-1.0); MONOCYTES % (AUTO) 14 % (0-12); NEUTROPHILS # (AUTO) 5.8 X 10^3 (1.8-7.8); NEUTROPHILS % (AUTO) 74 % (42-75); PLATELET COUNT 164 10^3/uL (130-400); RED CELL DISTRIBUTION WIDTH 15.2 % (10.0-14.5); WHITE BLOOD COUNT 7.8 10^3/uL (4.3-11.0)
[2019-06-19 13:46] VITALS: BP 116/61
[2019-06-19] MEDS: ERTAPENEM 1 GM/NS 50 ML IVPB IV SCH ×2 (13:46)
[2019-06-19 13:52] LABS: ALKALINE PHOSPHATASE 122 U/L (40-136); BILIRUBIN,TOTAL 0.6 MG/DL (0.1-1.0); BUN/CREATININE RATIO 20; CALCIUM 9.3 MG/DL (8.5-10.1); CARBON DIOXIDE 25 MMOL/L (21-32); CHLORIDE 104 MMOL/L (98-107); CREATININE SERUM 1.17 MG/DL (0.60-1.30); GFR ESTIMATED > 60; GLUCOSE 93 MG/DL (70-105); POTASSIUM 4.4 MMOL/L (3.6-5.0); SODIUM 137 MMOL/L (135-145)
[2019-06-19 13:53] LABS: ALANINE AMINOTRANSFERASE 14 U/L (0-55); ALBUMIN 3.8 GM/DL (3.2-4.5); TOTAL PROTEIN 7.4 GM/DL (6.4-8.2)
[2019-06-19 14:33] LABS: ANISOCYTOSIS SLIGHT; BAND NEUTROPHILS 0 %; BASOPHILS % (MANUAL) 0 %; EOSINOPHILS % (MANUAL) 4 %; ERYTHROCYTE SEDIMENTATION RATE 20 MM/HR (0-30); LYMPHOCYTES % (MANUAL) 7 %; MONOCYTES % (MANUAL) 9 %; NEUTROPHILS % (MANUAL) 80 %
[2019-06-20] MEDS: ERTAPENEM 1 GM/NS 50 ML IVPB IV SCH ×2 (13:28)
[2019-06-20 13:58] VITALS: BP 131/81
[2019-06-21 13:45] VITALS: BP 123/63
[2019-06-21] MEDS: ERTAPENEM 1 GM/NS 50 ML IVPB IV SCH ×2 (13:45)
[2019-06-22] MEDS: ERTAPENEM 1 GM/NS 50 ML IVPB IV SCH ×2 (13:30)
[2019-06-22 13:53] VITALS: BP 119/61
[2019-06-23 14:34] VITALS: BP 125/66
[2019-06-23] MEDS: ERTAPENEM 1 GM/NS 50 ML IVPB IV SCH ×2 (14:41)
[2019-06-24] MEDS: ERTAPENEM 1 GM/NS 50 ML IVPB IV SCH ×2 (09:30)
[2019-06-24 10:13] VITALS: BP 112/61
[2019-06-25] MEDS: ERTAPENEM 1 GM/NS 50 ML IVPB IV SCH ×4 (09:33→09:34)
[2019-06-25 09:38] VITALS: BP 110/76
[2019-06-26 13:45] VITALS: BP 117/67
[2019-06-26] MEDS: ERTAPENEM 1 GM/NS 50 ML IVPB IV SCH ×2 (13:49)
[2019-06-26 13:50] LABS: BASOPHILS % (AUTO) 0 % (0-10); EOSINOPHILS # (AUTO) 0.2 10^3/uL (0.0-0.3); EOSINOPHILS % (AUTO) 3 % (0-10); HEMATOCRIT 39 % (40-54); HEMOGLOBIN 13.1 G/DL (13.3-17.7); LYMPHOCYTES # (AUTO) 0.7 X 10^3 (1.0-4.0); LYMPHOCYTES % (AUTO) 9 % (12-44); MEAN CORPUSCULAR HEMOGLOBIN 33 PG (25-34); MEAN CORPUSCULAR HGB CONC 34 G/DL (32-36); MEAN CORPUSCULAR VOLUME 96 FL (80-99); MONOCYTES % (AUTO) 13 % (0-12); NEUTROPHILS % (AUTO) 75 % (42-75); PLATELET COUNT 178 10^3/uL (130-400); RED CELL DISTRIBUTION WIDTH 15.2 % (10.0-14.5); WHITE BLOOD COUNT 8.1 10^3/uL (4.3-11.0)
[2019-06-26 14:10] LABS: ALBUMIN 3.6 GM/DL (3.2-4.5); BILIRUBIN,TOTAL 0.7 MG/DL (0.1-1.0); CALCIUM 9.3 MG/DL (8.5-10.1); CREATININE SERUM 1.26 MG/DL (0.60-1.30); POTASSIUM 4.6 MMOL/L (3.6-5.0); TOTAL PROTEIN 7.7 GM/DL (6.4-8.2)
[2019-06-26 14:43] LABS: BAND NEUTROPHILS 0 %; BASOPHILS % (MANUAL) 0 %; EOSINOPHILS % (MANUAL) 3 %; ERYTHROCYTE SEDIMENTATION RATE 14 MM/HR (0-30); LYMPHOCYTES % (MANUAL) 9 %; MONOCYTES % (MANUAL) 7 %; NEUTROPHILS % (MANUAL) 81 %; RBC MORPH NORMAL
[2019-06-27] MEDS: ERTAPENEM 1 GM/NS 50 ML IVPB IV SCH ×2 (14:52)
[2019-06-27 14:54] VITALS: BP_SYST 117; BP_SYST 124; BP_DIAS 63; BP_DIAS 67
[2019-06-28] MEDS: ERTAPENEM 1 GM/NS 50 ML IVPB IV SCH ×2 (13:49)
[2019-06-28] MEDS: DAPTOMYCIN IV SCH (14:19)
[2019-06-28] MEDS: NS IV SCH (14:19)
[2019-06-28 14:57] VITALS: BP 128/62
[2019-06-29] MEDS: DAPTOMYCIN IV SCH (14:23)
[2019-06-29] MEDS: NS IV SCH (14:23)
[2019-06-29] MEDS: ERTAPENEM 1 GM/NS 50 ML IVPB IV SCH ×2 (14:59)
[2019-06-29 15:30] VITALS: BP 113/59
[2019-06-30 14:15] VITALS: BP 125/61
[2019-06-30] MEDS: ERTAPENEM 1 GM/NS 50 ML IVPB IV SCH ×2 (14:31)
[2019-06-30] MEDS: DAPTOMYCIN IV SCH (15:06)
[2019-06-30] MEDS: NS IV SCH (15:06)
[2019-07-01] MEDS: ERTAPENEM 1 GM/NS 50 ML IVPB IV SCH ×2 (09:35)
[2019-07-01] MEDS: NS IV SCH (10:09)
[2019-07-01] MEDS: DAPTOMYCIN IV SCH (10:09)
[2019-07-01 11:09] VITALS: BP 117/68
[2019-07-02] MEDS: ERTAPENEM 1 GM/NS 50 ML IVPB IV SCH ×2 (09:26)
[2019-07-02] MEDS: DAPTOMYCIN IV SCH (09:59)
[2019-07-02] MEDS: NS IV SCH (09:59)
[2019-07-02 10:35] VITALS: BP 118/61
[2019-07-03 13:14] LABS: BASOPHILS % (AUTO) 0 % (0-10); EOSINOPHILS # (AUTO) 0.2 10^3/uL (0.0-0.3); EOSINOPHILS % (AUTO) 4 % (0-10); HEMATOCRIT 38 % (40-54); HEMOGLOBIN 13.1 G/DL (13.3-17.7); LYMPHOCYTES # (AUTO) 0.6 X 10^3 (1.0-4.0); LYMPHOCYTES % (AUTO) 10 % (12-44); MEAN CORPUSCULAR HEMOGLOBIN 33 PG (25-34); MEAN CORPUSCULAR HGB CONC 34 G/DL (32-36); MEAN CORPUSCULAR VOLUME 96 FL (80-99); MEAN PLATELET VOLUME 9.2 FL (7.4-10.4); MONOCYTES # (AUTO) 0.9 X 10^3 (0.0-1.0); MONOCYTES % (AUTO) 15 % (0-12); NEUTROPHILS # (AUTO) 4.3 X 10^3 (1.8-7.8); NEUTROPHILS % (AUTO) 72 % (42-75); PLATELET COUNT 156 10^3/uL (130-400); WHITE BLOOD COUNT 5.9 10^3/uL (4.3-11.0)
[2019-07-03] MEDS: NS IV SCH (13:25)
[2019-07-03] MEDS: DAPTOMYCIN IV SCH (13:25)
[2019-07-03 13:32] LABS: ALBUMIN 3.6 GM/DL (3.2-4.5); BILIRUBIN,TOTAL 0.7 MG/DL (0.1-1.0); CALCIUM 9.2 MG/DL (8.5-10.1); CREATININE SERUM 1.37 MG/DL (0.60-1.30); POTASSIUM 4.4 MMOL/L (3.6-5.0)
[2019-07-03 13:45] VITALS: BP 129/61
[2019-07-03] MEDS: ERTAPENEM 1 GM/NS 50 ML IVPB IV SCH ×2 (13:57)
[2019-07-03 14:33] LABS: ANISOCYTOSIS SLIGHT; BAND NEUTROPHILS 1 %; BASOPHILS % (MANUAL) 0 %; EOSINOPHILS % (MANUAL) 5 %; LYMPHOCYTES % (MANUAL) 10 %; MONOCYTES % (MANUAL) 10 %; NEUTROPHILS % (MANUAL) 74 %
[2019-07-03 14:34] LABS: ERYTHROCYTE SEDIMENTATION RATE 12 MM/HR (0-30)
[2019-07-04 13:35] VITALS: BP 116/7
[2019-07-04] MEDS: NS IV SCH (14:01)
[2019-07-04] MEDS: DAPTOMYCIN IV SCH (14:01)
[2019-07-04] MEDS: ERTAPENEM 1 GM/NS 50 ML IVPB IV SCH ×2 (14:35)
[2019-07-05] MEDS: NS IV SCH (13:46)
[2019-07-05] MEDS: DAPTOMYCIN IV SCH (13:46)
[2019-07-05] MEDS: ERTAPENEM 1 GM/NS 50 ML IVPB IV SCH ×2 (14:20)
[2019-07-05 14:48] VITALS: BP 103/54
[2019-07-06 15:36] VITALS: BP 96/77
[2019-07-06] MEDS: DAPTOMYCIN IV SCH (15:59)
[2019-07-06] MEDS: NS IV SCH (15:59)
[2019-07-06] MEDS: ERTAPENEM 1 GM/NS 50 ML IVPB IV SCH ×2 (16:34)
[2019-07-07] MEDS: ERTAPENEM 1 GM/NS 50 ML IVPB IV SCH ×2 (14:09)
[2019-07-07] MEDS: NS IV SCH (14:38)
[2019-07-07] MEDS: DAPTOMYCIN IV SCH (14:38)
[2019-07-07 15:18] VITALS: BP 96/77
[2019-07-08 09:00] VITALS: BP 121/60
[2019-07-08] MEDS: ERTAPENEM 1 GM/NS 50 ML IVPB IV SCH ×2 (09:19)
[2019-07-08] MEDS: DAPTOMYCIN IV SCH (09:51)
[2019-07-08] MEDS: NS IV SCH (09:51)
[2019-07-09 08:54] VITALS: BP 108/68
[2019-07-09] MEDS: DAPTOMYCIN IV SCH (09:11)
[2019-07-09] MEDS: NS IV SCH (09:11)
[2019-07-09] MEDS: ERTAPENEM 1 GM/NS 50 ML IVPB IV SCH ×2 (09:45)
[2019-07-10 13:39] LABS: BASOPHILS % (AUTO) 0 % (0-10); EOSINOPHILS # (AUTO) 0.3 10^3/uL (0.0-0.3); EOSINOPHILS % (AUTO) 4 % (0-10); HEMATOCRIT 38 % (40-54); HEMOGLOBIN 12.8 G/DL (13.3-17.7); LYMPHOCYTES # (AUTO) 0.5 X 10^3 (1.0-4.0); LYMPHOCYTES % (AUTO) 8 % (12-44); MEAN CORPUSCULAR HEMOGLOBIN 32 PG (25-34); MEAN CORPUSCULAR HGB CONC 34 G/DL (32-36); MEAN CORPUSCULAR VOLUME 95 FL (80-99); MEAN PLATELET VOLUME 9.3 FL (7.4-10.4); MONOCYTES % (AUTO) 15 % (0-12); NEUTROPHILS # (AUTO) 5.1 X 10^3 (1.8-7.8); NEUTROPHILS % (AUTO) 74 % (42-75); PLATELET COUNT 159 10^3/uL (130-400); RED CELL DISTRIBUTION WIDTH 15.2 % (10.0-14.5)
[2019-07-10 13:57] LABS: ALBUMIN 3.5 GM/DL (3.2-4.5); BILIRUBIN,TOTAL 0.8 MG/DL (0.1-1.0); CALCIUM 9.8 MG/DL (8.5-10.1); CREATININE SERUM 1.54 MG/DL (0.60-1.30); POTASSIUM 4.5 MMOL/L (3.6-5.0)
[2019-07-10] MEDS: ERTAPENEM 1 GM/NS 50 ML IVPB IV SCH ×2 (14:00)
[2019-07-10 14:06] VITALS: BP 104/57
[2019-07-10 14:12] LABS: ERYTHROCYTE SEDIMENTATION RATE 18 MM/HR (0-30)
[2019-07-10 14:24] LABS: EOSINOPHILS % (MANUAL) 6 %; HYPERSEGMENTED NEUT SLIGHT; LYMPHOCYTES % (MANUAL) 6 %; MONOCYTES % (MANUAL) 12 %; NEUTROPHILS % (MANUAL) 76 %
[2019-07-10 14:25] LABS: RBC MORPH NORMAL
[2019-07-10] MEDS: DAPTOMYCIN IV SCH (14:32)
[2019-07-10] MEDS: NS IV SCH (14:32)
[2019-07-11] MEDS: ERTAPENEM 1 GM/NS 50 ML IVPB IV SCH ×2 (14:18)
[2019-07-11] MEDS: DAPTOMYCIN IV SCH (14:50)
[2019-07-11] MEDS: NS IV SCH (14:50)
[2019-07-11 15:30] VITALS: BP 123/63
[2019-07-12 13:55] VITALS: BP 116/60
[2019-07-12] MEDS: ERTAPENEM 1 GM/NS 50 ML IVPB IV SCH ×2 (14:29)
[2019-07-12] MEDS: NS IV SCH (14:33)
[2019-07-12] MEDS: DAPTOMYCIN IV SCH (14:33)
[2019-07-13] MEDS: ERTAPENEM 1 GM/NS 50 ML IVPB IV SCH ×2 (14:30)
[2019-07-13] MEDS: NS IV SCH (14:31)
[2019-07-13] MEDS: DAPTOMYCIN IV SCH (14:31)
[2019-07-13 15:07] VITALS: BP 115/68
[2019-07-14 14:50] VITALS: BP_SYST 114; BP_DIAS 3; BP_DIAS 73
[2019-07-14] MEDS: ERTAPENEM 1 GM/NS 50 ML IVPB IV SCH ×2 (15:05)
[2019-07-14] MEDS: NS IV SCH (15:10)
[2019-07-14] MEDS: DAPTOMYCIN IV SCH (15:10)
[2019-07-15] MEDS: ERTAPENEM 1 GM/NS 50 ML IVPB IV SCH ×2 (09:37)
[2019-07-15] MEDS: DAPTOMYCIN IV SCH (09:37)
[2019-07-15] MEDS: NS IV SCH (09:37)
[2019-07-15 10:08] VITALS: BP 116/64
[2019-07-16] MEDS: NS IV SCH (09:04)
[2019-07-16] MEDS: ERTAPENEM 1 GM/NS 50 ML IVPB IV SCH ×2 (09:04)
[2019-07-16] MEDS: DAPTOMYCIN IV SCH (09:04)
[2019-07-16 09:40] VITALS: BP 131/68
[2019-07-17] MEDS: DAPTOMYCIN IV SCH (14:15)
[2019-07-17] MEDS: NS IV SCH (14:15)
[2019-07-17] MEDS: ERTAPENEM 1 GM/NS 50 ML IVPB IV SCH ×2 (14:16)
[2019-07-17 14:50] VITALS: BP 121/1
[2019-07-17 15:06] LABS: BASOPHILS % (AUTO) 0 % (0-10); EOSINOPHILS # (AUTO) 0.3 10^3/uL (0.0-0.3); EOSINOPHILS % (AUTO) 4 % (0-10); HEMATOCRIT 38 % (40-54); HEMOGLOBIN 12.9 G/DL (13.3-17.7); LYMPHOCYTES # (AUTO) 0.6 X 10^3 (1.0-4.0); LYMPHOCYTES % (AUTO) 9 % (12-44); MEAN CORPUSCULAR HEMOGLOBIN 33 PG (25-34); MEAN CORPUSCULAR HGB CONC 34 G/DL (32-36); MEAN CORPUSCULAR VOLUME 96 FL (80-99); MEAN PLATELET VOLUME 9.7 FL (7.4-10.4); MONOCYTES # (AUTO) 0.9 X 10^3 (0.0-1.0); MONOCYTES % (AUTO) 14 % (0-12); NEUTROPHILS # (AUTO) 4.7 X 10^3 (1.8-7.8); NEUTROPHILS % (AUTO) 72 % (42-75); PLATELET COUNT 167 10^3/uL (130-400); RED CELL DISTRIBUTION WIDTH 15.1 % (10.0-14.5); WHITE BLOOD COUNT 6.5 10^3/uL (4.3-11.0)
[2019-07-17 15:31] LABS: ALBUMIN 3.7 GM/DL (3.2-4.5); BILIRUBIN,TOTAL 0.9 MG/DL (0.1-1.0); CALCIUM 9.4 MG/DL (8.5-10.1); CREATININE SERUM 1.38 MG/DL (0.60-1.30); POTASSIUM 4.4 MMOL/L (3.6-5.0); TOTAL PROTEIN 7.3 GM/DL (6.4-8.2)
[2019-07-17 15:43] LABS: ERYTHROCYTE SEDIMENTATION RATE 21 MM/HR (0-30)
[2019-07-18] MEDS: DAPTOMYCIN IV SCH (15:38)
[2019-07-18] MEDS: ERTAPENEM 1 GM/NS 50 ML IVPB IV SCH ×2 (15:38)
[2019-07-18] MEDS: NS IV SCH (15:38)
[2019-07-18 16:10] VITALS: BP 127/64
[2019-07-19 14:31] VITALS: BP_SYST 122; BP_SYST 127; BP_DIAS 59; BP_DIAS 64
[2019-07-19] MEDS: DAPTOMYCIN IV SCH (14:49)
[2019-07-19] MEDS: NS IV SCH (14:49)
[2019-07-19] MEDS: ERTAPENEM 1 GM/NS 50 ML IVPB IV SCH ×2 (14:49)
[2019-07-20 13:45] VITALS: BP 125/66
[2019-07-20] MEDS: ERTAPENEM 1 GM/NS 50 ML IVPB IV SCH ×2 (13:46)
[2019-07-20] MEDS: NS IV SCH (13:46)
[2019-07-20] MEDS: DAPTOMYCIN IV SCH (13:46)
[2019-07-21 15:29] VITALS: BP 143/90
[2019-07-21] MEDS: NS IV SCH (16:05)
[2019-07-21] MEDS: DAPTOMYCIN IV SCH (16:05)
[2019-07-21] MEDS: ERTAPENEM 1 GM/NS 50 ML IVPB IV SCH ×2 (16:05)
[2019-07-21 17:05] VITALS: BP 143/90
[2019-07-22 09:30] VITALS: BP 104/80
[2019-07-22] MEDS: ERTAPENEM 1 GM/NS 50 ML IVPB IV SCH ×2 (09:30)
[2019-07-22] MEDS: DAPTOMYCIN IV SCH (09:30)
[2019-07-22] MEDS: NS IV SCH (09:30)
[2019-07-23] MEDS: NS IV SCH (09:33)
[2019-07-23] MEDS: ERTAPENEM 1 GM/NS 50 ML IVPB IV SCH ×2 (09:33)
[2019-07-23] MEDS: DAPTOMYCIN IV SCH (09:33)
[2019-07-23 09:46] VITALS: BP 119/62
[2019-07-24] MEDS: ERTAPENEM 1 GM/NS 50 ML IVPB IV SCH ×2 (13:41)
[2019-07-24] MEDS: DAPTOMYCIN IV SCH (13:41)
[2019-07-24] MEDS: NS IV SCH (13:41)
[2019-07-24 13:55] LABS: BASOPHILS % (AUTO) 0 % (0-10); EOSINOPHILS # (AUTO) 0.3 10^3/uL (0.0-0.3); EOSINOPHILS % (AUTO) 5 % (0-10); HEMATOCRIT 39 % (40-54); HEMOGLOBIN 13.2 G/DL (13.3-17.7); LYMPHOCYTES # (AUTO) 0.5 X 10^3 (1.0-4.0); LYMPHOCYTES % (AUTO) 8 % (12-44); MEAN CORPUSCULAR HEMOGLOBIN 32 PG (25-34); MEAN CORPUSCULAR HGB CONC 34 G/DL (32-36); MEAN CORPUSCULAR VOLUME 94 FL (80-99); MEAN PLATELET VOLUME 9.3 FL (7.4-10.4); MONOCYTES % (AUTO) 15 % (0-12); NEUTROPHILS # (AUTO) 5.1 X 10^3 (1.8-7.8); NEUTROPHILS % (AUTO) 73 % (42-75); PLATELET COUNT 179 10^3/uL (130-400); RED CELL DISTRIBUTION WIDTH 15.7 % (10.0-14.5)
[2019-07-24 14:10] LABS: ALBUMIN 3.8 GM/DL (3.2-4.5); BILIRUBIN,TOTAL 0.8 MG/DL (0.1-1.0); CALCIUM 10.3 MG/DL (8.5-10.1); CREATININE SERUM 1.55 MG/DL (0.60-1.30); TOTAL PROTEIN 7.5 GM/DL (6.4-8.2)
[2019-07-24 14:15] VITALS: BP 105/67
[2019-07-24 14:25] LABS: BAND NEUTROPHILS 0 %; BASOPHILS % (MANUAL) 0 %; EOSINOPHILS % (MANUAL) 6 %; LYMPHOCYTES % (MANUAL) 14 %; MONOCYTES % (MANUAL) 9 %; NEUTROPHILS % (MANUAL) 71 %; RBC MORPH NORMAL
[2019-07-24 14:26] LABS: ERYTHROCYTE SEDIMENTATION RATE 23 MM/HR (0-30)
[2019-07-25] MEDS: NS IV SCH (13:48)
[2019-07-25] MEDS: ERTAPENEM 1 GM/NS 50 ML IVPB IV SCH ×2 (13:48)
[2019-07-25] MEDS: DAPTOMYCIN IV SCH (13:48)
[2019-07-25 14:24] VITALS: BP 125/58
[2019-07-26] MEDS: NS IV SCH (14:38)
[2019-07-26] MEDS: ERTAPENEM 1 GM/NS 50 ML IVPB IV SCH ×2 (14:38)
[2019-07-26] MEDS: DAPTOMYCIN IV SCH (14:38)
[2019-07-26 15:10] VITALS: BP 124/71
[2019-07-27] MEDS: DAPTOMYCIN IV SCH (13:51)
[2019-07-27] MEDS: NS IV SCH (13:51)
[2019-07-27] MEDS: ERTAPENEM 1 GM/NS 50 ML IVPB IV SCH ×2 (13:52)
[2019-07-27 14:15] VITALS: BP 128/64
[~2019-07-28] VITALS: Ht 167.6 cm; Wt 77.1 kg
[2019-07-28] MEDS: ERTAPENEM 1 GM/NS 50 ML IVPB IV SCH ×2 (14:03)
[2019-07-28] MEDS: DAPTOMYCIN IV SCH (14:05)
[2019-07-28] MEDS: NS IV SCH (14:05)
[2019-07-28 14:50] VITALS: BP 123/72
== END 2019-09-15 | disposition home or self-care (01) ==
LOC: SDC 13:44
PROVIDERS: ATTEND Internal Medicine Infectious Disease
DX: M86.471 Chronic osteomyelitis with draining sinus, right ankle and foot (principal); A49.8 Other bacterial infections of unspecified site; A49.01 Methicillin susceptible Staphylococcus aureus infection, unspecified site
CPT/HCPCS: 36415; 80053; 82550; 85007; 85025; 85027; 85652; 96365; 96366; 96367; 99211

== ENCOUNTER 2020-04-19 09:14 | Outpatient (RCR) | payer MEDICARE, OTHER ==
[2020-02-16] MEDS: MEROPENEM 1,000 MG/SWFI 20 ML IV PUSH IV SCH ×4 (13:43→20:47)
[2020-02-16 13:50] VITALS: BP 156/70
--- NOTE | 2020-02-16 20:30 | NUR ---
"Patient arrived on unit. T 36.8 | P 98 | RR 18 | o2 95% RA | bp 161/73 | Pain 0 PICC Flushed and Meropenem 1Gram IVP patient left unit with all belongings in stable condition"
[2020-02-17] MEDS: MEROPENEM 1,000 MG/SWFI 20 ML IV PUSH IV SCH ×2 (08:58)
[2020-02-17 09:05] VITALS: BP 133/73
[2020-02-18] MEDS: MEROPENEM 1,000 MG/SWFI 20 ML IV PUSH IV SCH ×2 (07:48)
[2020-02-18 08:00] VITALS: BP 137/67
[2020-02-19 11:10] VITALS: BP 112/63
[2020-02-19] MEDS: MEROPENEM 1,000 MG/SWFI 20 ML IV PUSH IV SCH ×2 (11:17)
[2020-02-19 11:31] LABS: BASOPHILS % (AUTO) 0 % (0-10); EOSINOPHILS # (AUTO) 0.3 10^3/uL (0.0-0.3); EOSINOPHILS % (AUTO) 4 % (0-10); HEMATOCRIT 39 % (40-54); HEMOGLOBIN 13.1 G/DL (13.3-17.7); LYMPHOCYTES # (AUTO) 0.6 X 10^3 (1.0-4.0); LYMPHOCYTES % (AUTO) 9 % (12-44); MEAN CORPUSCULAR HEMOGLOBIN 33 PG (25-34); MEAN CORPUSCULAR HGB CONC 34 G/DL (32-36); MEAN CORPUSCULAR VOLUME 97 FL (80-99); MEAN PLATELET VOLUME 9.3 FL (7.4-10.4); MONOCYTES # (AUTO) 0.9 X 10^3 (0.0-1.0); MONOCYTES % (AUTO) 13 % (0-12); NEUTROPHILS # (AUTO) 5.1 X 10^3 (1.8-7.8); NEUTROPHILS % (AUTO) 74 % (42-75); PLATELET COUNT 143 10^3/uL (130-400); RED CELL DISTRIBUTION WIDTH 15.7 % (10.0-14.5); WHITE BLOOD COUNT 6.9 10^3/uL (4.3-11.0)
[2020-02-19 11:41] LABS: ALBUMIN 3.4 GM/DL (3.2-4.5); CHLORIDE 100 MMOL/L (98-107); POTASSIUM 4.2 MMOL/L (3.6-5.0); SODIUM 136 MMOL/L (135-145)
[2020-02-19 11:42] LABS: CALCIUM 9.1 MG/DL (8.5-10.1)
[2020-02-19 11:43] LABS: GLUCOSE 169 MG/DL (70-105); TOTAL PROTEIN 7.1 GM/DL (6.4-8.2)
[2020-02-19 11:44] LABS: CARBON DIOXIDE 26 MMOL/L (21-32)
[2020-02-19 11:45] LABS: BILIRUBIN,TOTAL 0.9 MG/DL (0.1-1.0)
[2020-02-19 11:47] LABS: ALKALINE PHOSPHATASE 109 U/L (40-136); CREATININE SERUM 1.01 MG/DL (0.60-1.30); GFR ESTIMATED > 60
[2020-02-19 11:48] LABS: BUN/CREATININE RATIO 27
[2020-02-19 11:50] LABS: ALANINE AMINOTRANSFERASE 11 U/L (0-55)
[2020-02-19 11:54] LABS: ERYTHROCYTE SEDIMENTATION RATE 15 MM/HR (0-30)
[2020-02-20] MEDS: MEROPENEM 1,000 MG/SWFI 20 ML IV PUSH IV SCH ×2 (10:43)
[2020-02-20 10:45] VITALS: BP 119/68
[2020-02-21 09:55] VITALS: BP 110/75
[2020-02-21] MEDS: MEROPENEM 1,000 MG/SWFI 20 ML IV PUSH IV SCH ×4 (10:19→16:06)
[2020-02-21 16:00] VITALS: BP 0/0
[2020-02-22 07:56] VITALS: BP 128/66
[2020-02-22] MEDS: MEROPENEM 1,000 MG/SWFI 20 ML IV PUSH IV SCH ×4 (08:07→16:11)
[2020-02-22 16:05] VITALS: BP 129/71
[2020-02-23] MEDS: MEROPENEM 1,000 MG/SWFI 20 ML IV PUSH IV SCH ×4 (07:50→16:04)
[2020-02-23 08:00] VITALS: BP 130/80
[2020-02-23 16:10] VITALS: BP 138/69
[2020-02-24 07:52] VITALS: BP 129/65
[2020-02-24] MEDS: MEROPENEM 1,000 MG/SWFI 20 ML IV PUSH IV SCH ×4 (08:02→16:30)
[2020-02-24 16:25] VITALS: BP 132/63
[2020-02-25] MEDS: MEROPENEM 1,000 MG/SWFI 20 ML IV PUSH IV SCH ×4 (08:26→16:40)
[2020-02-25 08:43] VITALS: BP 123/74
[2020-02-25 16:25] VITALS: BP 140/65
[2020-02-26] MEDS: MEROPENEM 1,000 MG/SWFI 20 ML IV PUSH IV SCH ×4 (08:12→16:15)
[2020-02-26 08:15] VITALS: BP 132/69
[2020-02-26 08:20] LABS: BASOPHILS % (AUTO) 0 % (0-10); EOSINOPHILS # (AUTO) 0.2 10^3/uL (0.0-0.3); EOSINOPHILS % (AUTO) 3 % (0-10); HEMATOCRIT 41 % (40-54); LYMPHOCYTES # (AUTO) 0.5 X 10^3 (1.0-4.0); LYMPHOCYTES % (AUTO) 7 % (12-44); MEAN CORPUSCULAR HEMOGLOBIN 33 PG (25-34); MEAN CORPUSCULAR HGB CONC 34 G/DL (32-36); MEAN CORPUSCULAR VOLUME 97 FL (80-99); MEAN PLATELET VOLUME 9.4 FL (7.4-10.4); MONOCYTES # (AUTO) 0.6 X 10^3 (0.0-1.0); MONOCYTES % (AUTO) 8 % (0-12); NEUTROPHILS # (AUTO) 6.3 X 10^3 (1.8-7.8); NEUTROPHILS % (AUTO) 82 % (42-75); PLATELET COUNT 141 10^3/uL (130-400); RED CELL DISTRIBUTION WIDTH 15.4 % (10.0-14.5); WHITE BLOOD COUNT 7.6 10^3/uL (4.3-11.0)
[2020-02-26 08:29] LABS: ALBUMIN 3.5 GM/DL (3.2-4.5)
[2020-02-26 08:30] LABS: CHLORIDE 99 MMOL/L (98-107); POTASSIUM 4.1 MMOL/L (3.6-5.0); SODIUM 135 MMOL/L (135-145)
[2020-02-26 08:31] LABS: CALCIUM 8.8 MG/DL (8.5-10.1)
[2020-02-26 08:32] LABS: GLUCOSE 263 MG/DL (70-105); TOTAL PROTEIN 7.1 GM/DL (6.4-8.2)
[2020-02-26 08:33] LABS: CARBON DIOXIDE 27 MMOL/L (21-32)
[2020-02-26 08:34] LABS: BILIRUBIN,TOTAL 1.1 MG/DL (0.1-1.0)
[2020-02-26 08:35] LABS: ALKALINE PHOSPHATASE 116 U/L (40-136)
[2020-02-26 08:36] LABS: CREATININE SERUM 1.06 MG/DL (0.60-1.30); GFR ESTIMATED > 60
[2020-02-26 08:37] LABS: BUN/CREATININE RATIO 22
[2020-02-26 08:38] LABS: ALANINE AMINOTRANSFERASE 13 U/L (0-55)
[2020-02-26 08:46] LABS: ERYTHROCYTE SEDIMENTATION RATE 12 MM/HR (0-30)
[2020-02-26 08:54] LABS: ANISOCYTOSIS SLIGHT; BAND NEUTROPHILS 2 %; BASOPHILS % (MANUAL) 2 %; EOSINOPHILS % (MANUAL) 4 %; LYMPHOCYTES % (MANUAL) 9 %; MONOCYTES % (MANUAL) 5 %; NEUTROPHILS % (MANUAL) 78 %
[2020-02-26 16:15] VITALS: BP 132/69
[2020-02-27] MEDS: MEROPENEM 1,000 MG/SWFI 20 ML IV PUSH IV SCH ×4 (08:33→15:28)
[2020-02-27 08:35] VITALS: BP 110/65
[2020-02-27 15:29] VITALS: BP 110/65
[2020-02-28 08:16] VITALS: BP 103/65
[2020-02-28] MEDS: MEROPENEM 1,000 MG/SWFI 20 ML IV PUSH IV SCH ×4 (08:29→16:00)
--- NOTE | 2020-02-28 15:00 | NUR ---
RECEIVED CALL FROM PT STATING HE WOULD NOT BE IN FOR 1600 DOSE TODAY DUE TO ROAD CONSTRUCTION BY HIS HOUSE
[2020-02-29] MEDS: MEROPENEM 1,000 MG/SWFI 20 ML IV PUSH IV SCH ×4 (08:14→15:28)
[2020-02-29 08:22] VITALS: BP 115/64
[2020-02-29 15:34] VITALS: BP 115/64
[2020-03-01] MEDS: MEROPENEM 1,000 MG/SWFI 20 ML IV PUSH IV SCH ×4 (08:38→15:45)
[2020-03-01 08:45] VITALS: BP 131/76
[2020-03-01 15:55] VITALS: BP 130/72
[2020-03-02] MEDS: MEROPENEM 1,000 MG/SWFI 20 ML IV PUSH IV SCH ×4 (08:17→16:20)
[2020-03-02 08:20] VITALS: BP 115/61
[2020-03-02 16:25] VITALS: BP 166/70
[2020-03-03] MEDS: MEROPENEM 1,000 MG/SWFI 20 ML IV PUSH IV SCH ×4 (08:09→16:21)
[2020-03-03 08:14] VITALS: BP 131/78
[2020-03-03 16:52] VITALS: BP 108/72
[2020-03-04] MEDS: MEROPENEM 1,000 MG/SWFI 20 ML IV PUSH IV SCH ×4 (08:53→15:45)
[2020-03-04 08:55] VITALS: BP 115/65
[2020-03-04 09:21] LABS: BASOPHILS % (AUTO) 0 % (0-10); EOSINOPHILS # (AUTO) 0.2 10^3/uL (0.0-0.3); EOSINOPHILS % (AUTO) 3 % (0-10); HEMATOCRIT 41 % (40-54); HEMOGLOBIN 13.9 G/DL (13.3-17.7); LYMPHOCYTES # (AUTO) 0.5 X 10^3 (1.0-4.0); LYMPHOCYTES % (AUTO) 7 % (12-44); MEAN CORPUSCULAR HEMOGLOBIN 33 PG (25-34); MEAN CORPUSCULAR HGB CONC 34 G/DL (32-36); MEAN CORPUSCULAR VOLUME 97 FL (80-99); MEAN PLATELET VOLUME 9.4 FL (7.4-10.4); MONOCYTES # (AUTO) 0.9 X 10^3 (0.0-1.0); MONOCYTES % (AUTO) 12 % (0-12); NEUTROPHILS # (AUTO) 5.6 X 10^3 (1.8-7.8); NEUTROPHILS % (AUTO) 78 % (42-75); PLATELET COUNT 158 10^3/uL (130-400); RED CELL DISTRIBUTION WIDTH 15.5 % (10.0-14.5); WHITE BLOOD COUNT 7.2 10^3/uL (4.3-11.0)
[2020-03-04 09:28] LABS: ALBUMIN 3.6 GM/DL (3.2-4.5)
[2020-03-04 09:29] LABS: CHLORIDE 99 MMOL/L (98-107); POTASSIUM 4.1 MMOL/L (3.6-5.0); SODIUM 136 MMOL/L (135-145)
[2020-03-04 09:31] LABS: GLUCOSE 195 MG/DL (70-105); TOTAL PROTEIN 7.1 GM/DL (6.4-8.2)
[2020-03-04 09:32] LABS: CARBON DIOXIDE 28 MMOL/L (21-32)
[2020-03-04 09:33] LABS: BILIRUBIN,TOTAL 1.7 MG/DL (0.1-1.0)
[2020-03-04 09:35] LABS: ALKALINE PHOSPHATASE 103 U/L (40-136); CREATININE SERUM 0.99 MG/DL (0.60-1.30); GFR ESTIMATED > 60
[2020-03-04 09:36] LABS: BUN/CREATININE RATIO 24
[2020-03-04 09:37] LABS: ALANINE AMINOTRANSFERASE 13 U/L (0-55)
[2020-03-04 09:59] LABS: ERYTHROCYTE SEDIMENTATION RATE 8 MM/HR (0-30)
[2020-03-04 10:16] LABS: ANISOCYTOSIS SLIGHT; BAND NEUTROPHILS 2 %; BASOPHILS % (MANUAL) 0 %; EOSINOPHILS % (MANUAL) 3 %; LYMPHOCYTES % (MANUAL) 11 %; MONOCYTES % (MANUAL) 8 %; NEUTROPHILS % (MANUAL) 76 %
[2020-03-04 15:35] VITALS: BP 115/65
[2020-03-05] MEDS: MEROPENEM 1,000 MG/SWFI 20 ML IV PUSH IV SCH ×4 (08:28→16:14)
[2020-03-05 08:35] VITALS: BP 133/63
[2020-03-05 16:25] VITALS: BP 133/63
[2020-03-06 09:00] VITALS: BP 109/58
[2020-03-06] MEDS: MEROPENEM 1,000 MG/SWFI 20 ML IV PUSH IV SCH ×4 (09:02→16:05)
[2020-03-06 16:05] VITALS: BP 127/68
[2020-03-07] MEDS: MEROPENEM 1,000 MG/SWFI 20 ML IV PUSH IV SCH ×4 (08:56→16:06)
[2020-03-07 08:57] VITALS: BP_SYST 116; BP_DIAS 0; BP_DIAS 62
[2020-03-07 16:00] VITALS: BP 132/77
[2020-03-08] MEDS: MEROPENEM 1,000 MG/SWFI 20 ML IV PUSH IV SCH ×4 (08:29→16:02)
[2020-03-08 08:30] VITALS: BP 110/63
[2020-03-08 16:00] VITALS: BP 123/65
[2020-03-09] MEDS: MEROPENEM 1,000 MG/SWFI 20 ML IV PUSH IV SCH ×4 (08:21→16:35)
[2020-03-10 08:52] VITALS: BP 115/69
[2020-03-10] MEDS: MEROPENEM 1,000 MG/SWFI 20 ML IV PUSH IV SCH ×4 (08:52→16:14)
[2020-03-10 16:18] VITALS: BP 129/75
[2020-03-11] MEDS: MEROPENEM 1,000 MG/SWFI 20 ML IV PUSH IV SCH ×4 (08:30→15:58)
[2020-03-11 08:40] VITALS: BP 119/57
[2020-03-11 08:51] LABS: BASOPHILS % (AUTO) 0 % (0-10); EOSINOPHILS # (AUTO) 0.3 10^3/uL (0.0-0.3); EOSINOPHILS % (AUTO) 4 % (0-10); HEMATOCRIT 41 % (40-54); LYMPHOCYTES # (AUTO) 0.5 X 10^3 (1.0-4.0); LYMPHOCYTES % (AUTO) 8 % (12-44); MEAN CORPUSCULAR HEMOGLOBIN 33 PG (25-34); MEAN CORPUSCULAR HGB CONC 35 G/DL (32-36); MEAN CORPUSCULAR VOLUME 96 FL (80-99); MEAN PLATELET VOLUME 9.9 FL (7.4-10.4); MONOCYTES # (AUTO) 0.8 X 10^3 (0.0-1.0); MONOCYTES % (AUTO) 13 % (0-12); NEUTROPHILS # (AUTO) 4.8 X 10^3 (1.8-7.8); NEUTROPHILS % (AUTO) 74 % (42-75); PLATELET COUNT 126 10^3/uL (130-400); RED CELL DISTRIBUTION WIDTH 14.9 % (10.0-14.5); WHITE BLOOD COUNT 6.5 10^3/uL (4.3-11.0)
[2020-03-11 09:07] LABS: ALANINE AMINOTRANSFERASE 12 U/L (0-55); ALBUMIN 3.4 GM/DL (3.2-4.5); ALKALINE PHOSPHATASE 109 U/L (40-136); BILIRUBIN,TOTAL 1.6 MG/DL (0.1-1.0); BUN/CREATININE RATIO 26; CALCIUM 8.9 MG/DL (8.5-10.1); CARBON DIOXIDE 30 MMOL/L (21-32); CHLORIDE 97 MMOL/L (98-107); CREATININE SERUM 1.09 MG/DL (0.60-1.30); GFR ESTIMATED > 60; GLUCOSE 207 MG/DL (70-105); POTASSIUM 3.7 MMOL/L (3.6-5.0); SODIUM 138 MMOL/L (135-145); TOTAL PROTEIN 6.9 GM/DL (6.4-8.2)
[2020-03-11 09:15] LABS: ERYTHROCYTE SEDIMENTATION RATE 3 MM/HR (0-30)
[2020-03-11 16:03] VITALS: BP 138/72
[2020-03-12] MEDS: MEROPENEM 1,000 MG/SWFI 20 ML IV PUSH IV SCH ×4 (08:37→16:08)
[2020-03-12 08:40] VITALS: BP 125/60
[2020-03-13 08:13] VITALS: BP 111/66
[2020-03-13] MEDS: MEROPENEM 1,000 MG/SWFI 20 ML IV PUSH IV SCH ×4 (08:29→15:59)
[2020-03-13 15:50] VITALS: BP 111/66
[2020-03-14] MEDS: MEROPENEM 1,000 MG/SWFI 20 ML IV PUSH IV SCH ×4 (08:30→15:47)
[2020-03-14 08:35] VITALS: BP 117/70
[2020-03-14 15:50] VITALS: BP 128/70
[2020-03-15] MEDS: MEROPENEM 1,000 MG/SWFI 20 ML IV PUSH IV SCH ×2 (13:52)
[2020-03-15 14:00] VITALS: BP 131/76
[2020-03-16 09:03] VITALS: BP 117/75
[2020-03-16] MEDS: MEROPENEM 1,000 MG/SWFI 20 ML IV PUSH IV SCH ×4 (09:08→16:36)
[2020-03-16 16:30] VITALS: BP 117/61
[2020-03-17 08:40] VITALS: BP 127/62
[2020-03-17] MEDS: MEROPENEM 1,000 MG/SWFI 20 ML IV PUSH IV SCH ×4 (08:43→16:20)
[2020-03-17 16:18] VITALS: BP 126/72
[2020-03-18] MEDS: MEROPENEM 1,000 MG/SWFI 20 ML IV PUSH IV SCH ×4 (08:47→16:02)
[2020-03-18 09:00] VITALS: BP 124/63
[2020-03-18 09:08] LABS: BASOPHILS % (AUTO) 0 % (0-10); EOSINOPHILS # (AUTO) 0.2 10^3/uL (0.0-0.3); EOSINOPHILS % (AUTO) 3 % (0-10); HEMATOCRIT 40 % (40-54); HEMOGLOBIN 14.1 G/DL (13.3-17.7); LYMPHOCYTES # (AUTO) 0.6 X 10^3 (1.0-4.0); LYMPHOCYTES % (AUTO) 9 % (12-44); MEAN CORPUSCULAR HEMOGLOBIN 33 PG (25-34); MEAN CORPUSCULAR HGB CONC 35 G/DL (32-36); MEAN CORPUSCULAR VOLUME 95 FL (80-99); MEAN PLATELET VOLUME 9.9 FL (7.4-10.4); MONOCYTES # (AUTO) 0.7 X 10^3 (0.0-1.0); MONOCYTES % (AUTO) 10 % (0-12); NEUTROPHILS # (AUTO) 5.8 X 10^3 (1.8-7.8); NEUTROPHILS % (AUTO) 79 % (42-75); PLATELET COUNT 137 10^3/uL (130-400); RED CELL DISTRIBUTION WIDTH 14.9 % (10.0-14.5); WHITE BLOOD COUNT 7.3 10^3/uL (4.3-11.0)
[2020-03-18 09:17] LABS: ALBUMIN 3.6 GM/DL (3.2-4.5)
[2020-03-18 09:18] LABS: CHLORIDE 101 MMOL/L (98-107); POTASSIUM 4.2 MMOL/L (3.6-5.0); SODIUM 138 MMOL/L (135-145)
[2020-03-18 09:19] LABS: CALCIUM 9.2 MG/DL (8.5-10.1)
[2020-03-18 09:20] LABS: GLUCOSE 202 MG/DL (70-105); TOTAL PROTEIN 7.2 GM/DL (6.4-8.2)
[2020-03-18 09:21] LABS: CARBON DIOXIDE 28 MMOL/L (21-32)
[2020-03-18 09:22] LABS: BILIRUBIN,TOTAL 1.9 MG/DL (0.1-1.0)
[2020-03-18 09:23] LABS: ALKALINE PHOSPHATASE 120 U/L (40-136)
[2020-03-18 09:24] LABS: CREATININE SERUM 1.09 MG/DL (0.60-1.30); GFR ESTIMATED > 60
[2020-03-18 09:25] LABS: BUN/CREATININE RATIO 26
[2020-03-18 09:26] LABS: ALANINE AMINOTRANSFERASE 13 U/L (0-55)
[2020-03-18 09:36] LABS: ERYTHROCYTE SEDIMENTATION RATE 8 MM/HR (0-30)
[2020-03-18 16:14] VITALS: BP 124/63
[2020-03-19] MEDS: MEROPENEM 1,000 MG/SWFI 20 ML IV PUSH IV SCH ×4 (09:05→15:58)
[2020-03-19 09:11] VITALS: BP 122/72
[2020-03-20 08:50] VITALS: BP 112/65
[2020-03-20] MEDS: MEROPENEM 1,000 MG/SWFI 20 ML IV PUSH IV SCH ×4 (08:56→15:08)
[2020-03-20 15:15] VITALS: BP 119/66
[2020-03-21] MEDS: MEROPENEM 1,000 MG/SWFI 20 ML IV PUSH IV SCH ×4 (08:43→15:25)
[2020-03-21 08:50] VITALS: BP 132/69
[2020-03-21 15:30] VITALS: BP 135/84
[2020-03-23 08:59] VITALS: BP 100/62
[2020-03-23] MEDS: MEROPENEM 1,000 MG/SWFI 20 ML IV PUSH IV SCH ×4 (08:59→16:45)
[2020-03-23 16:45] VITALS: BP 137/66
[2020-03-24] MEDS: MEROPENEM 1,000 MG/SWFI 20 ML IV PUSH IV SCH ×4 (08:23→16:13)
[2020-03-24 08:24] VITALS: BP 135/67
[2020-03-25] MEDS: MEROPENEM 1,000 MG/SWFI 20 ML IV PUSH IV SCH ×4 (08:55→15:32)
[2020-03-25 08:58] VITALS: BP 129/84
[2020-03-25 12:25] LABS: BASOPHILS % (AUTO) 0 % (0-10); EOSINOPHILS # (AUTO) 0.2 10^3/uL (0.0-0.3); EOSINOPHILS % (AUTO) 3 % (0-10); HEMATOCRIT 42 % (40-54); HEMOGLOBIN 14.2 G/DL (13.3-17.7); LYMPHOCYTES # (AUTO) 0.7 X 10^3 (1.0-4.0); LYMPHOCYTES % (AUTO) 8 % (12-44); MEAN CORPUSCULAR HEMOGLOBIN 33 PG (25-34); MEAN CORPUSCULAR HGB CONC 34 G/DL (32-36); MEAN CORPUSCULAR VOLUME 96 FL (80-99); MONOCYTES # (AUTO) 0.9 X 10^3 (0.0-1.0); MONOCYTES % (AUTO) 10 % (0-12); NEUTROPHILS # (AUTO) 6.8 X 10^3 (1.8-7.8); NEUTROPHILS % (AUTO) 79 % (42-75); PLATELET COUNT 158 10^3/uL (130-400); RED CELL DISTRIBUTION WIDTH 15.7 % (10.0-14.5); WHITE BLOOD COUNT 8.6 10^3/uL (4.3-11.0)
[2020-03-25 12:30] LABS: ALBUMIN 3.6 GM/DL (3.2-4.5); POTASSIUM 3.8 MMOL/L (3.6-5.0)
[2020-03-25 12:31] LABS: CALCIUM 9.8 MG/DL (8.5-10.1)
[2020-03-25 12:33] LABS: TOTAL PROTEIN 7.4 GM/DL (6.4-8.2)
[2020-03-25 12:34] LABS: BILIRUBIN,TOTAL 2.1 MG/DL (0.1-1.0)
[2020-03-25 12:36] LABS: CREATININE SERUM 1.22 MG/DL (0.60-1.30)
[2020-03-25 12:51] LABS: ANISOCYTOSIS SLIGHT; BASOPHILS % (MANUAL) 1 %; EOSINOPHILS % (MANUAL) 3 %; LYMPHOCYTES % (MANUAL) 9 %; MONOCYTES % (MANUAL) 7 %; NEUTROPHILS % (MANUAL) 80 %; POIKILOCYTOSIS SLIGHT; SPHEROCYTES SLIGHT
[2020-03-25 12:59] LABS: ERYTHROCYTE SEDIMENTATION RATE 8 MM/HR (0-30)
[2020-03-25 15:36] VITALS: BP 114/70
[2020-03-26 08:45] VITALS: BP 117/72
[2020-03-26] MEDS: MEROPENEM 1,000 MG/SWFI 20 ML IV PUSH IV SCH ×4 (08:58→15:35)
[2020-03-26 15:30] VITALS: BP 117/72
[2020-03-27] MEDS: MEROPENEM 1,000 MG/SWFI 20 ML IV PUSH IV SCH ×2 (08:35)
[2020-03-27 08:46] VITALS: BP 134/63
[2020-03-28] MEDS: MEROPENEM 1,000 MG/SWFI 20 ML IV PUSH IV SCH ×2 (08:47)
[2020-03-28 08:54] VITALS: BP 129/64
[2020-04-03 09:15] VITALS: BP 126/68
[2020-04-10 09:25] VITALS: BP 124/60
[~2020-04-19] VITALS: Ht 167.6 cm; Wt 77.1 kg
[~2020-04-19 09:14] MED LIST changes: +HYDR-34 PO; -HYDR-3816 PO; +OXYB5TAB13 PO; -OXYB5TAB9 PO
[2020-04-19 09:35] VITALS: BP 133/71
== END 2020-05-16 | disposition home or self-care (01) ==
LOC: SDC 09:14
PROVIDERS: ATTEND Internal Medicine Infectious Disease
DX: M86.671 Other chronic osteomyelitis, right ankle and foot (principal); A49.01 Methicillin susceptible Staphylococcus aureus infection, unspecified site
CPT/HCPCS: 36415; 80053; 85007; 85025; 85027; 85652; 96374; 96376; 99211

== ENCOUNTER 2020-05-29 02:57 | Emergency (ER) | payer MEDICARE, OTHER ==
[~2020-05-29] VITALS: Ht 167.7 cm; Wt 68.0 kg
--- NOTE | 2020-05-29 03:09 | NUR ---
RN attempted to flush suprapubic catheter. Catheter remains blocked.
--- NOTE | 2020-05-29 03:11 | ED GU-Male ---
General Chief Complaint: Catheter/Drain/Tube Problems Stated Complaint: CATHETER PROBLEMS Source: patient Exam Limitations: no limitations History of Present Illness Date Seen by Provider: May 29, 2020 Time Seen by Provider: 03:00 Initial Comments Patient presents to ER by private conveyance with his significant other and chief complaint that since midnight he has not been able to pass any urine through his suprapubic catheter. It was placed originally by urology at [place], [place] related to prostatic cancer. He is not having fever or chills but he is having increasing pain and pressure. Last time he drained his leg bag was at 10:00 last night, 5 hours ago. He denies nausea sweats or chills. 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 The patient just started antibiotics from his urologist for a bladder infection. He says they start with an M. Allergies and Home Medications Allergies Coded Allergies: No Known Drug Allergies (Unverified , 03/05/10) Home Medications Aspirin 81 Mg Tablet.dr, 81 MG PO DAILY, (Reported) Atorvastatin Calcium 40 Mg Tablet, 40 MG PO DAILY, (Reported) Furosemide 20 Mg Tablet, 20 MG PO DAILY, (Reported) Gabapentin 300 Mg Capsule, 300 MG PO TID, (Reported) Hydrocodone Bit/Acetaminophen 1 Each Tablet, 1 TAB PO Q6H PRN for PAIN, (Reported) Insulin NPH Hum/Reg Insulin Hm 100 Unit/1 Ml Vial, 35 UNIT SQ MORNING, (Reported) Insulin NPH Hum/Reg Insulin Hm 100 Unit/1 Ml Vial, 30 UNIT SQ HS, (Reported) Levothyroxine Sodium 112 Mcg Tablet, 112 MCG PO DAILY, (Reported) Lisinopril 10 Mg Tablet, 5 MG PO DAILY, (Reported) Oxybutynin Chloride 5 Mg Tablet, 5 MG PO TID, (Reported) Potassium Chloride 20 Meq Tab.er.prt, 20 MEQ PO DAILY, (Reported) Vitamin B Complex 1 Each Tablet, 1 TAB PO DAILY, (Reported) Patient Home Medication List Home Medication List Reviewed: Yes Review of Systems Review of Systems Constitutional: No chills, No diaphoresis EENTM: No ear discharge, No ear pain Respiratory: No cough, No short of breath Cardiovascular: No chest pain, No edema Gastrointestinal: see HPI, abdominal pain; No constipation, No diarrhea Genitourinary: see HPI; denies burning, denies discharge Musculoskeletal: No back pain, No gout All Other Systemes Reviewed Negative Unless Noted: Yes Past Qfufhkk-Gbfoci-Uinthv Hx Patient Social History Alcohol Use: Denies Use Recreational Drug Use: No Smoking Status: Never a Smoker Recent Foreign Travel: No Contact w/Someone Who Travel: No Immunizations Up To Date Date of Pneumonia Vaccine: Sep 27, 2009 Date of Influenza Vaccine: Jul 28, 2013 Past Medical History Reproductive Disorders: No Diabetes, Insulin dep Prostate Physical Exam Vital Signs Vital Signs - First Documented 05/29/20 03:00 Temp 36.5 Pulse 87 Resp 18 B/P (MAP) 159/90 (113) Pulse Ox 98 O2 Delivery Room Air Capillary Refill : Height, Weight, BMI Height: 5'6.00" Weight: 170lbs. 0.0oz. 77.955674ji; 26.8 BMI Method:Stated General Appearance: WD/WN, moderate distress HEENT: PERRL/EOMI, pharynx normal Neck: full range of motion, supple, normal inspection Cardiovascular: normal peripheral pulses, regular rate, rhythm Respiratory: no respiratory distress, no accessory muscle use Gastrointestinal: normal bowel sounds, soft, tenderness (Suprapubic fullness and tenderness to palpation) Extremities: normal range of motion, non-tender, normal inspection Neurologic/Psychiatric: alert, normal mood/affect, oriented x 3 Skin: normal color, warm/dry Progress/Results/Core Measures Suspected Sepsis SIRS Temperature: Pulse: Respiratory Rate: Laboratory Tests 05/29/20 03:20: White Blood Count 6.4 Blood Pressure / Mean: Laboratory Tests 05/29/20 03:20: Creatinine 1.18, Platelet Count 161, Total Bilirubin 1.7H Results/Orders Lab Results Laboratory Tests Test 05/29/20 03:20 Range/Units White Blood Count 6.4 4.3-11.0 10^3/uL Red Blood Count 4.25 L 4.35-5.85 10^6/uL Hemoglobin 14.2 13.3-17.7 G/DL Hematocrit 41 40-54 % Mean Corpuscular Volume 96 80-99 FL Mean Corpuscular Hemoglobin 33 25-34 PG Mean Corpuscular Hemoglobin Concent 35 32-36 G/DL Red Cell Distribution Width 14.8 H 10.0-14.5 % Platelet Count 161 130-400 10^3/uL Mean Platelet Volume 9.1 7.4-10.4 FL Neutrophils (%) (Auto) 77 H 42-75 % Lymphocytes (%) (Auto) 8 L 12-44 % Monocytes (%) (Auto) 12 0-12 % Eosinophils (%) (Auto) 3 0-10 % Basophils (%) (Auto) 0 0-10 % Neutrophils # (Auto) 4.9 1.8-7.8 X 10^3 Lymphocytes # (Auto) 0.5 L 1.0-4.0 X 10^3 Monocytes # (Auto) 0.8 0.0-1.0 X 10^3 Eosinophils # (Auto) 0.2 0.0-0.3 10^3/uL Basophils # (Auto) 0.0 0.0-0.1 10^3/uL Neutrophils % (Manual) 83 % Lymphocytes % (Manual) 6 % Monocytes % (Manual) 8 % Eosinophils % (Manual) 2 % Band Neutrophils 1 % Anisocytosis SLIGHT Urine Color YELLOW Urine Clarity TURBID Urine pH 7.0 5-9 Urine Specific [place] 1.015 L 1.016-1.022 Urine Protein 1+ H NEGATIVE Urine Glucose (UA) 3+ H NEGATIVE Urine Ketones NEGATIVE NEGATIVE Urine Nitrite NEGATIVE NEGATIVE Urine Bilirubin NEGATIVE NEGATIVE Urine Urobilinogen 4.0 < = 1.0 MG/DL Urine Leukocyte Esterase 1+ H NEGATIVE Urine RBC (Auto) 2+ H NEGATIVE Urine RBC 10-25 H /HPF Urine WBC 25-50 H /HPF Urine Squamous Epithelial Cells 0-2 /HPF Urine Crystals NONE /LPF Urine Bacteria LARGE H /HPF Urine Casts NONE /LPF Urine Mucus NEGATIVE /LPF Urine Culture Indicated YES Sodium Level 136 135-145 MMOL/L Potassium Level 4.2 3.6-5.0 MMOL/L Chloride Level 100 98-107 MMOL/L Carbon Dioxide Level 22 21-32 MMOL/L Anion Gap 14 5-14 MMOL/L Blood Urea Nitrogen 25 H 7-18 MG/DL Creatinine 1.18 0.60-1.30 MG/DL Estimat Glomerular Filtration Rate > 60 BUN/Creatinine Ratio 21 Glucose Level 242 H 70-105 MG/DL Calcium Level 9.6 8.5-10.1 MG/DL Corrected Calcium 9.6 8.5-10.1 MG/DL Total Bilirubin 1.7 H 0.1-1.0 MG/DL Aspartate Amino Transf (AST/SGOT) 14 5-34 U/L Alanine Aminotransferase (ALT/SGPT) 12 0-55 U/L Alkaline Phosphatase 116 40-136 U/L Total Protein 7.9 6.4-8.2 GM/DL Albumin 4.0 3.2-4.5 GM/DL My Orders Orders - GARRETT TONEY Fentanyl Injection (Sublimaze Injection (05/29/20 03:15) Ed Iv/Invasive Line Start (05/29/20 03:11) Cbc With Automated Diff (05/29/20 03:11) Comprehensive Metabolic Panel (05/29/20 03:11) Ua Culture If Indicated (05/29/20 03:11) Manual Differential (05/29/20 03:20) Urine Culture (05/29/20 03:20) Medications Given in ED Current Medications Medications Dose Ordered Sig/Rebekah Route Start Time Stop Time Status Last Admin Dose Admin Fentanyl Citrate 50 mcg ONCE ONCE IVP 05/29/20 03:15 05/29/20 03:16 DC 05/29/20 03:19 50 MCG Vital Signs/I&O 05/29/20 03:00 Temp 36.5 Pulse 87 Resp 18 B/P (MAP) 159/90 (113) Pulse Ox 98 O2 Delivery Room Air Capillary Refill : Progress Note #1: Time: 03:08 Progress Note Suprapubic catheter dysfunction. Plan to check some labs and urinalysis, 50 g IV fentanyl and flush or replace catheter. Progress Note #2: Time: 03:55 Progress Note Patient's received significant improvement in his symptoms after relieving over a liter of urine from his bladder. Departure Impression Primary Impression: SUPRAPUBIC CATHETER REPLACEMENT Disposition: 01 HOME, SELF-CARE Condition: Improved Departure-Patient Inst. Decision time for Depature: 03:55 Referrals: NO,LOCAL PHYSICIAN (PCP/Family) Primary Care Physician Patient Instructions: How to Care for Your Suprapubic Urinary Catheter Add. Discharge Instructions: Drink plenty of fluids and continue to take the antibiotics as prescribed. Return to the ER if you experience worsening symptoms. All discharge instructions reviewed with patient and/or family. Voiced understanding. GARRETT TONEY May 29, 2020 03:11
[2020-05-29] MEDS ORDERED: fentaNYL INJECTION 100 MCG/2 ML AMP IVP ONE (03:15)
[2020-05-29] MEDS ORDERED: fentaNYL INJECTION 100 MCG/2 ML AMP IM ONE (03:15)
[2020-05-29 03:30] LABS: BASOPHILS % (AUTO) 0 % (0-10); EOSINOPHILS # (AUTO) 0.2 10^3/uL (0.0-0.3); EOSINOPHILS % (AUTO) 3 % (0-10); HEMATOCRIT 41 % (40-54); HEMOGLOBIN 14.2 G/DL (13.3-17.7); LYMPHOCYTES # (AUTO) 0.5 X 10^3 (1.0-4.0); LYMPHOCYTES % (AUTO) 8 % (12-44); MEAN CORPUSCULAR HEMOGLOBIN 33 PG (25-34); MEAN CORPUSCULAR HGB CONC 35 G/DL (32-36); MEAN CORPUSCULAR VOLUME 96 FL (80-99); MEAN PLATELET VOLUME 9.1 FL (7.4-10.4); MONOCYTES # (AUTO) 0.8 X 10^3 (0.0-1.0); MONOCYTES % (AUTO) 12 % (0-12); NEUTROPHILS # (AUTO) 4.9 X 10^3 (1.8-7.8); NEUTROPHILS % (AUTO) 77 % (42-75); PLATELET COUNT 161 10^3/uL (130-400); RED CELL DISTRIBUTION WIDTH 14.8 % (10.0-14.5); WHITE BLOOD COUNT 6.4 10^3/uL (4.3-11.0)
[2020-05-29 03:31] LABS: BILIRUBIN,URINE NEGATIVE (NEGATIVE); CLARITY,URINE TURBID; COLOR,URINE YELLOW; GLUCOSE, URINE (UA) 3+ (NEGATIVE); KETONES,URINE NEGATIVE (NEGATIVE); LEUKOCYTE ESTERASE ,URINE 1+ (NEGATIVE); NITRITE,URINE NEGATIVE (NEGATIVE); PROTEIN,URINE 1+ (NEGATIVE)
[2020-05-29 03:38] LABS: CHLORIDE 100 MMOL/L (98-107); POTASSIUM 4.2 MMOL/L (3.6-5.0); SODIUM 136 MMOL/L (135-145)
[2020-05-29 03:39] LABS: CALCIUM 9.6 MG/DL (8.5-10.1)
[2020-05-29 03:40] LABS: BACTERIA,URINE LARGE /HPF; GLUCOSE 242 MG/DL (70-105); WBC,URINE 25-50 /HPF
[2020-05-29 03:41] LABS: SQUAMOUS EPITHELIAL CELL,UR 0-2 /HPF; TOTAL PROTEIN 7.9 GM/DL (6.4-8.2)
[2020-05-29 03:42] LABS: BILIRUBIN,TOTAL 1.7 MG/DL (0.1-1.0); CARBON DIOXIDE 22 MMOL/L (21-32)
[2020-05-29 03:44] LABS: ALKALINE PHOSPHATASE 116 U/L (40-136); CREATININE SERUM 1.18 MG/DL (0.60-1.30); GFR ESTIMATED > 60
[2020-05-29 03:45] LABS: BUN/CREATININE RATIO 21
[2020-05-29 03:47] LABS: ALANINE AMINOTRANSFERASE 12 U/L (0-55)
[2020-05-29 03:51] LABS: ANISOCYTOSIS SLIGHT; BAND NEUTROPHILS 1 %; EOSINOPHILS % (MANUAL) 2 %; LYMPHOCYTES % (MANUAL) 6 %; MONOCYTES % (MANUAL) 8 %; NEUTROPHILS % (MANUAL) 83 %
[2020-05-29 04:11] VITALS: BP 117/71
== END 2020-05-29 04:05 | disposition home or self-care (01) ==
LOC: EDUNIT# 02:57 → ER 03:00
DX: T83.028A Displacement of other urinary catheter, initial encounter (principal); E11.9 Type 2 diabetes mellitus without complications; Z79.4 Long term (current) use of insulin; Z85.46 Personal history of malignant neoplasm of prostate; Z79.82 Long term (current) use of aspirin
CPT/HCPCS: 36415; 51702; 80053; 81000; 85007; 85027; 87077; 87088; 87186

== ENCOUNTER 2020-06-08 05:48 | Emergency (ER) | payer MEDICARE, OTHER ==
[~2020-06-08] VITALS: Ht 167.7 cm; Wt 68.5 kg
[2020-06-08 05:58] VITALS: BP 159/97
[2020-06-08 06:29] LABS: BILIRUBIN,URINE NEGATIVE (NEGATIVE); CLARITY,URINE SL CLOUDY; COLOR,URINE YELLOW; GLUCOSE, URINE (UA) TRACE (NEGATIVE); KETONES,URINE NEGATIVE (NEGATIVE); LEUKOCYTE ESTERASE ,URINE 2+ (NEGATIVE); NITRITE,URINE NEGATIVE (NEGATIVE); PROTEIN,URINE NEGATIVE (NEGATIVE)
[2020-06-08 06:39] LABS: BACTERIA,URINE LARGE /HPF; SQUAMOUS EPITHELIAL CELL,UR 0-2 /HPF
--- NOTE | 2020-06-08 06:40 | ED GU-Female ---
General Chief Complaint: - Urinary Stated Complaint: CATHETER PLUGGED UP Nursing Triage Note: PT AMBULATE TO ROOM 05 WITH C/O SUPRAPUBIC CATHETHER CLOGGED. PT STATES THAT THIS HAPPENS FREQUENTLY AND THAT HE HAS SEEN HIS PCP FOR THIS C/O. PT STATES THAT PCP UNCLOGS CATHETER AND GIVES HIM ABX. Nursing Sepsis Screen: No Definite Risk Source: patient Exam Limitations: no limitations History of Present Illness Date Seen by Provider: Jun 08, 2020 Time Seen by Provider: 06:15 Initial Comments Here with report of suprapubic catheter being clogged. States he has not had output overnight or yet this morning but he is having leakage around the catheter. Similar occurred about 10 days ago and catheter was replaced. States that he has a 16 Maldivian catheter and now but usually has 18 Maldivian catheter. W gilda asked about urinary tract infection he states probably. He was previously on antibiotics for a few days for urinary tract infection. Records review shows that the Bactrim DS for 3 days. Denies fever or chills. Denies significant pain except for suprapubic fullness currently. Timing/Duration: yesterday, getting worse Severity/Quality: mild, aching (fullness) Location: suprapubic Radiation: none Activities at Onset: none Prior Genitourinary Problems: similar symptoms Associated Symptoms: No abdominal pain, No fever/chills, No nausea/vomiting Allergies and Home Medications Allergies Coded Allergies: No Known Drug Allergies (Unverified , 03/05/10) Home Medications Aspirin 81 Mg Tablet.dr, 81 MG PO DAILY, (Reported) Atorvastatin Calcium 40 Mg Tablet, 40 MG PO DAILY, (Reported) Furosemide 20 Mg Tablet, 20 MG PO DAILY, (Reported) Gabapentin 300 Mg Capsule, 300 MG PO TID, (Reported) Hydrocodone Bit/Acetaminophen 1 Each Tablet, 1 TAB PO Q6H PRN for PAIN, (Reported) Insulin NPH Hum/Reg Insulin Hm 100 Unit/1 Ml Vial, 35 UNIT SQ MORNING, (Reported) Insulin NPH Hum/Reg Insulin Hm 100 Unit/1 Ml Vial, 30 UNIT SQ HS, (Reported) Levothyroxine Sodium 112 Mcg Tablet, 112 MCG PO DAILY, (Reported) Lisinopril 10 Mg Tablet, 5 MG PO DAILY, (Reported) Oxybutynin Chloride 5 Mg Tablet, 5 MG PO TID, (Reported) Potassium Chloride 20 Meq Tab.er.prt, 20 MEQ PO DAILY, (Reported) Vitamin B Complex 1 Each Tablet, 1 TAB PO DAILY, (Reported) Patient Home Medication List Home Medication List Reviewed: Yes Review of Systems Review of Systems Constitutional: see HPI; No chills, No fever Respiratory: no symptoms reported Cardiovascular: no symptoms reported Genitourinary: see HPI Psychiatric/Neurological: No Symptoms Reported Past Yxkijdq-Ktqelz-Qyfhor Hx Past Med/Social Hx: Reviewed Nursing Past Med/Soc Hx Patient Social History Alcohol Use: Denies Use Recreational Drug Use: No Smoking Status: Never a Smoker 2nd Hand Smoke Exposure: No Recent Foreign Travel: No Contact w/Someone Who Travel: No Recent Infectious Disease Expo: No Recent Hopitalizations: Yes Physical Abuse: No Sexual Abuse: No Mistreated: No Fear: No Immunizations Up To Date Date of Pneumonia Vaccine: Sep 27, 2009 Date of Influenza Vaccine: Jul 28, 2013 Past Medical History Surgeries: Yes (MULTIPLE SKIN GRAFTS RIGHT LEG) Abdominal, Appendectomy, Orthopedic Respiratory: No Cardiac: No Neurological: No Reproductive Disorders: No Gastrointestinal: Yes Musculoskeletal: Yes Endocrine: Yes Diabetes, Insulin dep HEENT: No Cancer: Yes Prostate Did You Recieve Any Treatments: No Psychosocial: No Integumentary: No Blood Disorders: No Family Medical History Reviewed Nursing Family Hx No Pertinent Family Hx Physical Exam Vital Signs Vital Signs - First Documented 06/08/20 05:58 Temp 36.9 Pulse 86 Resp 16 B/P (MAP) 159/97 (117) O2 Delivery Room Air Capillary Refill : Less Than 3 Seconds Height, Weight, BMI Height: 5'6.00" Weight: 170lbs. 0.0oz. [id number]; 24.00 BMI Method:Stated General Appearance: WD/WN, no apparent distress Cardiovascular: regular rate, rhythm, no murmur Respiratory: lungs clear, normal breath sounds Gastrointestinal: soft, other (fullness noted in the suprapubic region. Suprapubic catheter in place with no drainage. There is urine leakage around catheter.) Neurologic/Psychiatric: alert, oriented x 3 Skin: normal color, warm/dry Progress/Results/Core Measures Suspected Sepsis Recent Fever Within 48 Hours: No Infection Criteria Present: None New/Unexplained Altered Menta: No Sepsis Screen: No Definite Risk SIRS Temperature: Pulse: 86 Respiratory Rate: 16 Blood Pressure 159 /97 Mean: 117 Results/Orders Lab Results Laboratory Tests Test 06/08/20 06:19 Range/Units My Orders Orders - LAZARO SEAMAN MD Ua Culture If Indicated (06/08/20 06:23) Vital Signs/I&O 06/08/20 05:58 Temp 36.9 Pulse 86 Resp 16 B/P (MAP) 159/97 (117) O2 Delivery Room Air Capillary Refill : Less Than 3 Seconds Blood Pressure Mean: 117 Progress Note : Progress Note Seen and evaluated. Suprapubic catheter removed and replaced with 18 Maldivian catheter that was easily placed using standard technique. UA obtained. Connected to collection bag which filled quickly and was drained. Discharged home with return precautions. Patient verbalize understanding instructions and agreement with plan. Departure Impression Primary Impression: Urinary tract infection Qualified Codes: N30.00 - Acute cystitis without hematuria Additional Impression: SUPRAPUBIC CATHETER REPLACEMENT Disposition: HOME, SELF-CARE Condition: Improved Departure-Patient Inst. Decision time for Depature: 06:40 Referrals: NO,LOCAL PHYSICIAN (PCP/Family) Primary Care Physician Patient Instructions: How to Care for Your Suprapubic Urinary Catheter, Urinary Tract Infection, Adult (DC) Add. Discharge Instructions: All discharge instructions reviewed with patient and/or family. Voiced understanding. Continue home medications as previously prescribed. Take medications as directed. Follow-up with your DrKristian in a few days for recheck. Return for worse pain, fever, vomiting, weakness, breathing problems or other concerns as needed. Scripts Sulfamethoxazole/Trimethoprim (Bactrim Ds Tablet) 1 Each Tablet 1 EACH PO BID, #10 TAB 0 Refills Prov: LAZARO SEAMAN MD 06/08/20 LAZARO SEAMAN MD Jun 08, 2020 06:40
[2020-06-08] MEDS ORDERED: SULF1TAB35 PO (06:42)
== END 2020-06-08 06:45 | disposition home or self-care (01) ==
LOC: EDUNIT# 05:48 → ER 05:52
DX: N39.0 Urinary tract infection, site not specified (principal); E11.9 Type 2 diabetes mellitus without complications; T83.198A Other mechanical complication of other urinary devices and implants, initial encounter; Z79.4 Long term (current) use of insulin; Z79.82 Long term (current) use of aspirin; Z85.46 Personal history of malignant neoplasm of prostate
CPT/HCPCS: 81000; 87077; 87088; 99282

== ENCOUNTER 2020-06-22 23:14 | Emergency (ER) | payer MEDICARE, OTHER ==
[~2020-06-22] VITALS: Ht 167 cm; Wt 68.0 kg
[~2020-06-22 23:14] MED LIST changes: +SULF1TAB35 PO
--- NOTE | 2020-06-22 23:59 | ED GU-Male ---
General Stated Complaint: SUPER PUBIC TUBE BLOCKED Source: patient (SOMEWHAT LIMITED HISTORIAN ABOUT PMH), old records History of Present Illness Date Seen by Provider: Jun 22, 2020 Time Seen by Provider: 23:45 Initial Comments PT ARRIVES VIA POV FROM HOME STATES HIS SUPRAPUBIC CATHETER IS NOT DRAINING EMPTIED LEG BAG AROUND 2200 AND HAS NOT DRAINED SINCE PT HAS HAD SUPRAPUBIC CATHETER IN PLACE SINCE 2009--10 YEARS WAS SEEN HERE 05/29 AND 06/08/20 FOR SAME PROBLEM--CATHETER WAS REPLACED EACH TIME PT WAS PLACED ON ANTIBIOTICS, FINISHED THEM A WEEK AGO SAW HIS UROLOGIST AT [facility], A WEEK AGO, AND HE CHANGED OUT THE CATHETE R/REPLACED IT IN THE OFFICE AT THAT TIME WELL NO FEVER NO NAUSEA/VOMITING WANTING PAIN MEDICATION SOON HE ARRIVES--C/O BLADDER PAIN Allergies and Home Medications Allergies Coded Allergies: No Known Drug Allergies (Unverified , 03/05/10) Home Medications Aspirin 81 Mg Tablet.dr, 81 MG PO DAILY, (Reported) Atorvastatin Calcium 40 Mg Tablet, 40 MG PO DAILY, (Reported) Furosemide 20 Mg Tablet, 20 MG PO DAILY, (Reported) Gabapentin 300 Mg Capsule, 300 MG PO TID, (Reported) Hydrocodone Bit/Acetaminophen 1 Each Tablet, 1 TAB PO Q6H PRN for PAIN, (Reported) Insulin NPH Hum/Reg Insulin Hm 100 Unit/1 Ml Vial, 35 UNIT SQ MORNING, (Re ported) Insulin NPH Hum/Reg Insulin Hm 100 Unit/1 Ml Vial, 30 UNIT SQ HS, (Reported) Levothyroxine Sodium 112 Mcg Tablet, 112 MCG PO DAILY, (Reported) Lisinopril 10 Mg Tablet, 5 MG PO DAILY, (Reported) Nitrofurantoin Monohyd/M-Cryst 100 Mg Capsule, 1 TAB PO BID Prescribed by: FRANCI SHARIF on 06/23/20 0102 Oxybutynin Chloride 5 Mg Tablet, 5 MG PO TID, (Reported) Potassium Chloride 20 Meq Tab.er.prt, 20 MEQ PO DAILY, (Reported) Sulfamethoxazole/Trimethoprim 1 Each Tablet, 1 EACH PO BID Prescribed by: LAZARO SEAMAN on 06/08/20 0642 Vitamin B Complex 1 Each Tablet, 1 TAB PO DAILY, (Reported) Patient Home Medication List Home Medication List Reviewed: Yes Review of Systems Review of Systems Constitutional: no symptoms reported; No fever Gastrointestinal: see HPI Genitourinary: see HPI Past Jjxizjn-Nijvjp-Evlvwd Hx Past Med/Social Hx: Reviewed and Corrections made Patient Social History Alcohol Use: Denies Use Recreational Drug Use: No Smoking Status: Never a Smoker 2nd Hand Smoke Exposure: No Recent Foreign Travel: No Contact w/Someone Who Travel: No Recent Hopitalizations: Yes Immunizations Up To Date Date of Pneumonia Vaccine: Sep 27, 2009 Date of Influenza Vaccine: Jul 28, 2013 Past Medical History Surgeries: Yes (MULTIPLE SKIN GRAFTS R LEG;SUPRAPUBIC CATH 2009;LYMPH NODE REM W/PROSTATE ) Abdominal, Amputation, Appendectomy, Bladder Surgery, Eye Surgery, Gallbladder, Orthopedic, Penile Implant, Prostatectomy Respiratory: Yes (POST OP MRSA PNEUMONIA/RESP FAILURE/VENTILATOR 2009) Cardiac: Yes High Cholesterol, Hypertension Neurological: No Reproductive Disorders: No Genitourinary: Yes (SUPRAPUBIC CATHETER SINCE 2009;PROSTATECTOMY/LYMPH NODE REMOVAL;PROSTATE CA) Prostate Problems, Renal Failure (CRI) Gastrointestinal: Yes (S/P CHOLECYSTECTOMY; IBS-C) Gastroesophageal Reflux, Chronic Constipation, Pancreatitis, Gall Bladder Disease, Irritable Bowel Musculoskeletal: Yes (RIGHT TOE AMPUTATION;OSTEOMYELITIS R FOOT) Amputee, Arthritis, Chronic Back Pain Endocrine: Yes Diabetes, Insulin dep, Hypothyroidsim HEENT: No Cancer: Yes Prostate Did You Recieve Any Treatments: Yes What Type of Treatment Did You: Surgical Intervention Psychosocial: No Integumentary: Yes (CANNON WITH SKIN GRAFTS RIGHT LEG;OSTEOMYELITIS R FOOT;CHRONIC WOUNDS R FOOT) Blood Disorders: No Family Medical History No Pertinent Family Hx PSH: -EYE SURGERY -SKIN GRAFTS RIGHT LEG -RIGHT TOE AMPUTATION -PANCREAS SURGERY -PENILE IMPLANT -PROSTATECTOMY WITH LYMPH NODE REMOVAL -SUPRAPUBIC CATHETER 2009 -CHOLECYSTECTOMY -BRONCHOSCOPY 2009--POST OP RESP FAILURE/MRSA PNEUMONIA/VENTILATOR Physical Exam Vital Signs Vital Signs - First Documented 06/22/20 23:50 Temp 35.9 Pulse 96 Resp 18 B/P (MAP) 152/102 (119) Pulse Ox 98 O2 Delivery Room Air Capillary Refill : Height, Weight, BMI Height: 5'6.00" Weight: 170lbs. 0.0oz. 77.513606rt; 24.00 BMI Method:Stated General Appearance: WD/WN, other (ANXIOUS) Respiratory: normal breath sounds Gastrointestinal: soft, tenderness (DIFFUSE LOWER ABDOMINAL TENDERNESS, SUPRAPUBIC SITE APPEARS NORMAL, NO LEAKAGE AROUND THE SITE. NO SIGNS OF INFECTION TO THE SURROUNDING SKING) Extremities: no pedal edema Neurologic/Psychiatric: no motor/sensory deficits, alert Skin: normal color, warm/dry Progress/Results/Core Measures Suspected Sepsis SIRS Temperature: Pulse: Respiratory Rate: Blood Pressure / Mean: Results/Orders Lab Results Laboratory Tests Test 06/23/20 00:12 Range/Units Urine Color YELLOW Urine Clarity CLOUDY Urine pH 6.5 5-9 Urine Specific [place] 1.015 L 1.016-1.022 Urine Protein 2+ H NEGATIVE Urine Glucose (UA) 1+ H NEGATIVE Urine Ketones NEGATIVE NEGATIVE Urine Nitrite NEGATIVE NEGATIVE Urine Bilirubin NEGATIVE NEGATIVE Urine Urobilinogen 2.0 < = 1.0 MG/DL Urine Leukocyte Esterase 3+ H NEGATIVE Urine RBC (Auto) 3+ H NEGATIVE Urine RBC 5-10 H /HPF Urine WBC 50-100 H /HPF Urine Squamous Epithelial Cells 0-2 /HPF Urine Crystals NONE /LPF Urine Bacteria LARGE H /HPF Urine Casts NONE /LPF Urine Mucus MODERATE H /LPF Urine Culture Indicated YES My Orders Orders - FRANCI SHARIF DO Catheter(Urinary) Insert & Ass 03,15 (06/22/20 23:53) Ua Culture If Indicated (06/23/20 00:12) Urine Culture (06/23/20 00:12) Rx-Nitrofurantoin [place] (Rx-Macrobid) (06/23/20 01:03) Vital Signs/I&O 06/22/20 06/23/20 23:50 01:30 Temp 35.9 35.9 Pulse 96 96 Resp 18 18 B/P (MAP) 152/102 (119) 152/102 (119) Pulse Ox 98 98 O2 Delivery Room Air Capillary Refill : Progress Note : Progress Note LARGE STONE WAS NOTED TO BE OCCLUDING THE CATHETER TUBING. CATHETER WAS REMOVED AND REPLACED, WITH IMMEDIATE RETURN OF > 1100 ML URINE ABDOMINAL DISCOMFORT IMPROVED Departure Impression Primary Impression: SUPRAPUBIC CATHETER REPLACEMENT Additional Impressions: Urinary tract infection Urinary tract stone Disposition: HOME, SELF-CARE Condition: Stable Departure-Patient Inst. Referrals: NO,LOCAL PHYSICIAN (PCP/Family) Primary Care Physician Patient Instructions: How to Care for Your Suprapubic Urinary Catheter, Urinary Tract Infection, Adult (DC) Add. Discharge Instructions: CONTINUE YOUR CURRENT MEDICATIONS PRESCRIBED FOLLOW UP WITH YOUR UROLOGIST NEXT WEEK FOR FURTHER CARE ROUTINE CATHETER CARE Scripts Nitrofurantoin Monohyd/M-Cryst (Macrobid 100 mg Capsule) 100 Mg Capsule 1 TAB PO BID, #20 CAP Prov: FRANCI SHARIF DO 06/23/20 FRANCI SHARIF DO Jun 22, 2020 23:59
[2020-06-23 00:24] LABS: BILIRUBIN,URINE NEGATIVE (NEGATIVE); CLARITY,URINE CLOUDY; COLOR,URINE YELLOW; GLUCOSE, URINE (UA) 1+ (NEGATIVE); KETONES,URINE NEGATIVE (NEGATIVE); LEUKOCYTE ESTERASE ,URINE 3+ (NEGATIVE); NITRITE,URINE NEGATIVE (NEGATIVE); PH,URINE 6.5 (5-9); PROTEIN,URINE 2+ (NEGATIVE)
[2020-06-23 00:39] LABS: BACTERIA,URINE LARGE /HPF; SQUAMOUS EPITHELIAL CELL,UR 0-2 /HPF; WBC,URINE 50-100 /HPF
[2020-06-23] MEDS ORDERED: NITR-65 PO (01:02)
[2020-06-23] MEDS ORDERED: RX-NITROFURANTOIN 100 MG (MACROBID) CAP PPK#2 PO STA (01:03)
[2020-06-23 01:30] VITALS: BP 152/102
[2020-06-26] MEDS ORDERED: RIFA300C3 PO (12:08)
== END 2020-06-23 01:31 | disposition home or self-care (01) ==
LOC: EDUNIT# 23:14 → ER 23:15
DX: T83.198A Other mechanical complication of other urinary devices and implants, initial encounter (principal); N20.9 Urinary calculus, unspecified; N39.0 Urinary tract infection, site not specified; I10 Essential (primary) hypertension; E78.00 Pure hypercholesterolemia, unspecified; K58.1 Irritable bowel syndrome with constipation; E11.9 Type 2 diabetes mellitus without complications; E03.9 Hypothyroidism, unspecified; G89.29 Other chronic pain; M54.9 Dorsalgia, unspecified; Z79.890 Hormone replacement therapy; Z85.46 Personal history of malignant neoplasm of prostate; Z79.82 Long term (current) use of aspirin; Z79.4 Long term (current) use of insulin; Z89.421 Acquired absence of other right toe(s)
CPT/HCPCS: 51702; 81000; 87077; 87088; 87186

== ENCOUNTER 2020-07-29 12:00 | Emergency (ER) | payer MEDICARE, OTHER ==
[~2020-07-29] VITALS: Ht 167 cm; Wt 69.0 kg
[~2020-07-29 12:00] MED LIST changes: +NITR-65 PO; +RIFA300C3 PO
--- NOTE | 2020-07-29 13:00 | NUR ---
PT HAS APPX 150CC OF URINE IN HIS CATH BAG. STATES THAT IS FROM THE LAST THREE HOURS. CATH FLUSHED WITH STERILE WATER WITHOUT DIFFICULTY. NOTIFSHAY.
--- NOTE | 2020-07-29 13:03 | ED GU-Male ---
General Chief Complaint: Catheter/Drain/Tube Problems Stated Complaint: SUPRAPUBIC CATH BLOCKED Nursing Triage Note: ARRIVED VIA AMB TO ROOM 02 WITH COMPLAINTS OF PEG TUBE NOT DRAINING LIKE IT SHOULD. STATES IT IS USUALLY REPLACED WITH A 18 MALIAN CATH. Source: patient Exam Limitations: no limitations (KENNY CHENG STUDENT) History of Present Illness Date Seen by Provider: Jul 29, 2020 Time Seen by Provider: 12:29 Initial Comments Mr. Sagastume is a 75 y/o M who presented to the ED for SP catheter blockage. He said that he noticed decreased urine output starting this weekend. He said the urine output has gradually decreased and his pain has worsened over the last couple days leading to him coming to the ED today. He reports suprapubic pain but denies flank pain at this time. He said he had his catheter blocked and had to have it replaced within the last year at this ED. He has not tried to flush his catheter at home. He last drained his urine collection bag this morning. He said he has the SP catheter due to a complication from a cholecystectomy in 2009. He does not have any normal urination out of his urethra. He denies any fever, chills, nausea, vomiting, blood in the urine or any other symptoms at this time. (KENNY CHENG STUDENT) Allergies and Home Medications Allergies Coded Allergies: No Known Drug Allergies (Unverified , 03/05/10) Home Medications Aspirin 81 Mg Tablet.dr, 81 MG PO DAILY, (Reported) Atorvastatin Calcium 40 Mg Tablet, 40 MG PO DAILY, (Reported) Ciprofloxacin HCl 500 Mg Tablet, 500 MG PO BID Prescribed by: KISHAN NGUYEN on 07/29/20 1436 Furosemide 20 Mg Tablet, 20 MG PO DAILY, (Reported) Gabapentin 300 Mg Capsule, 300 MG PO TID, (Reported) Hydrocodone Bit/Acetaminophen 1 Each Tablet, 1 TAB PO Q6H PRN for PAIN, (Reported) Insulin NPH Hum/Reg Insulin Hm 100 Unit/1 Ml Vial, 35 UNIT SQ MORNING, (Reported) Insulin NPH Hum/Reg Insulin Hm 100 Unit/1 Ml Vial, 30 UNIT SQ HS, (Reported) Levothyroxine Sodium 112 Mcg Tablet, 112 MCG PO DAILY, (Reported) Lisinopril 10 Mg Tablet, 5 MG PO DAILY, (Reported) Nitrofurantoin Monohyd/M-Cryst 100 Mg Capsule, 1 TAB PO BID Prescribed by: FRANCI SHARIF on 06/23/20 0102 Oxybutynin Chloride 5 Mg Tablet, 5 MG PO TID, (Reported) Potassium Chloride 20 Meq Tab.er.prt, 20 MEQ PO DAILY, (Reported) Rifampin 300 Mg Capsule, 300 MG PO BID, (Reported) Sulfamethoxazole/Trimethoprim 1 Each Tablet, 1 EACH PO BID Prescribed by: LAZARO SEAMAN on 06/08/20 0642 Vitamin B Complex 1 Each Tablet, 1 TAB PO DAILY, (Reported) Patient Home Medication List Home Medication List Reviewed: Yes (KENNY CHENG MED STUDENT) Review of Systems Review of Systems Constitutional: No chills, No diaphoresis, No dizziness, No fever, No weakness EENTM: No throat pain Respiratory: No cough, No short of breath Cardiovascular: No chest pain, No edema, No palpitations Gastrointestinal: abdominal pain (suprapubic); No diarrhea, No nausea, No vomiting Genitourinary: see HPI; denies burning, denies discharge, denies dysuria, denies frequency, denies flank pain, denies hematuria Psychiatric/Neurological: Denies Headache, Denies Numbness, Denies Tingling, Denies Weakness (KENNY CHENG [email or web address] STUDENT) Past Duviucu-Vntpke-Itbooi Hx Patient Social History Alcohol Use: Denies Use Recreational Drug Use: No Smoking Status: Never a Smoker 2nd Hand Smoke Exposure: No Recent Foreign Travel: No Contact w/Someone Who Travel: No Recent Infectious Disease Expo: No Recent Hopitalizations: Yes (KENNY CHENG [email or web address] STUDENT) Immunizations Up To Date Date of Pneumonia Vaccine: Sep 27, 2009 Date of Influenza Vaccine: Jul 28, 2013 (KENNY CHENG [email or web address] STUDENT) Past Medical History Surgeries: Yes (MULTIPLE SKIN GRAFTS R LEG;SUPRAPUBIC CATH 2009;LYMPH NODE REM W/PROSTATE ) Abdominal, Amputation, Appendectomy, Bladder Surgery, Eye Surgery, Gallbladder, Orthopedic, Penile Implant, Prostatectomy Respiratory: Yes (POST OP MRSA PNEUMONIA/RESP FAILURE/VENTILATOR 2009) Cardiac: Yes High Cholesterol, Hypertension Neurological: No Reproductive Disorders: No Genitourinary: Yes (SUPRAPUBIC CATHETER SINCE 2009;PROSTATECTOMY/LYMPH NODE REMOVAL;PROSTATE CA) Prostate Problems, Renal Failure Gastrointestinal: Yes (S/P CHOLECYSTECTOMY; IBS-C) Gastroesophageal Reflux, Chronic Constipation, Pancreatitis, Gall Bladder D isease, Irritable Bowel Musculoskeletal: Yes (RIGHT TOE AMPUTATION;OSTEOMYELITIS R FOOT) Amputee, Arthritis, Chronic Back Pain Endocrine: Yes Diabetes, Insulin dep, Hypothyroidsim HEENT: No Cancer: Yes Prostate Did You Recieve Any Treatments: Yes What Type of Treatment Did You: Surgical Intervention Psychosocial: No Integumentary: Yes (CANNON WITH SKIN GRAFTS RIGHT LEG;OSTEOMYELITIS R FOOT;CHRONIC WOUNDS R FOOT) Blood Disorders: No (KENNY CHENG MED STUDENT) Family Medical History No Pertinent Family Hx PSH: -EYE SURGERY -SKIN GRAFTS RIGHT LEG -RIGHT TOE AMPUTATION -PANCREAS SURGERY -PENILE IMPLANT -PROSTATECTOMY WITH LYMPH NODE REMOVAL -SUPRAPUBIC CATHETER 2009 -CHOLECYSTECTOMY -BRONCHOSCOPY 2009--POST OP RESP FAILURE/MRSA PNEUMONIA/VENTILATOR (KENNY CHENG MED STUDENT) Physical Exam Vital Signs Vital Signs - First Documented 07/29/20 12:18 Temp 35.9 Pulse 102 Resp 16 B/P (MAP) 150/77 (101) Pulse Ox 94 O2 Delivery Room Air (KISHAN NGUYEN MD) Vital Signs Capillary Refill : Less Than 3 Seconds (KENNY CHENG MED STUDENT) Height, Weight, BMI Height: 5'6.00" Weight: 170lbs. 0.0oz. [id number]; 24.00 BMI Method:Stated General Appearance: WD/WN, moderate distress Neck: full range of motion, supple, normal inspection Cardiovascular: regular rate, rhythm, no edema, no murmur Respiratory: chest non-tender, lungs clear, normal breath sounds, no respiratory distress, no accessory muscle use Gastrointestinal: normal bowel sounds, soft, no organomegaly, tenderness (suprapubic) Male: normal genitalia (No signs of inflammation around SP catheter) Back: normal inspection, no CVA tenderness Extremities: non-tender Neurologic/Psychiatric: alert, normal mood/affect, oriented x 3 (KENNY CHENG MED STUDENT) Respiratory: lungs clear, normal breath sounds, no respiratory distress Gastrointestinal: normal bowel sounds, guarding, tenderness (suprapubic) Genital/Rectal: normal genital exam Skin: normal color, warm/dry (KISHAN NGUYEN MD) Progress/Results/Core Measures Suspected Sepsis Recent Fever Within 48 Hours: No Infection Criteria Present: Suspected New Infection New/Unexplained Altered Menta: No Sepsis Screen: Possible Severe Sepsis Risk SIRS Temperature: Pulse: 102 Respiratory Rate: 16 Blood Pressure 150 /77 Mean: 101 (KENNY CHENG MED STUDENT) Results/Orders Lab Results Laboratory Tests Test 07/29/20 13:15 Range/Units Urine Color ORANGE Urine Clarity TURBID Urine pH 6.0 5-9 Urine Specific [place] 1.025 H 1.016-1.022 Urine Protein 2+ H NEGATIVE Urine Glucose (UA) NEGATIVE NEGATIVE Urine Ketones NEGATIVE NEGATIVE Urine Nitrite NEGATIVE NEGATIVE Urine Bilirubin NEGATIVE NEGATIVE Urine Urobilinogen 4.0 < = 1.0 MG/DL Urine Leukocyte Esterase 3+ H NEGATIVE Urine RBC (Auto) 3+ H NEGATIVE Urine RBC TNTC H /HPF Urine WBC TNTC H /HPF Urine Squamous Epithelial Cells 10-25 H /HPF Urine Crystals NONE /LPF Urine Bacteria LARGE H /HPF Urine Casts NONE /LPF Urine Mucus NEGATIVE /LPF Urine Culture Indicated YES (KISHAN NGUYEN MD) My Orders Orders - KISHAN NGUYEN MD Ua Culture If Indicated (07/29/20 13:16) Urine Culture (07/29/20 13:15) Acetaminophen Tablet (Tylenol Tablet) (07/29/20 14:45) (KISHAN NGUYEN MD) Vital Signs/I&O 07/29/20 12:18 Temp 35.9 Pulse 102 Resp 16 B/P (MAP) 150/77 (101) Pulse Ox 94 O2 Delivery Room Air (KISHAN NGUYEN MD) Vital Signs/I&O Capillary Refill : Less Than 3 Seconds (KENNY CHENG MED STUDENT) Blood Pressure Mean: 101 Progress Note : Progress Note Mr. Sagastume is a 75 y/o M who presented to the ED with SP catheter partial obstruction. He currently has some urinary drainage but is in noticeable distress so we will attempt to flush his catheter to see if that helps ease the partial obstruction. If not then we will replace the catheter with an 18 yi reid. (KENNY CHENG MED STUDENT) Progress Note : Time: 13:22 Progress Note Patient seen and examined by me. 75yo male with indwelling suprapubic catheter with comlpaints of decreased output and abdominal pain. HE states he thinks he may have a UTI. Bladder scan at the bedside shows minimal urine in the bladder. Will double check with a second machine. Patient otherwise without complains of systemic illness. Resting comfortably. Awaiting urinalysis. 1431 Urinary tract infection found, suspect that his pain is from this as the catheter seems to flush and drain very easily. Given tylenol for discomfort and will write for some Cipro for home. Patient verbalizes understanding and is ready for discharge. (KISHAN NGUYEN MD) Departure Impression Primary Impression: Urinary tract infection Qualified Codes: T83.510A - Infection and inflammatory reaction due to cystostomy catheter, initial encounter; N39.0 - Urinary tract infection, site not specified Disposition: HOME, SELF-CARE Condition: Stable Departure-Patient Inst. Decision time for Depature: 14:33 (KISHAN NGUYEN MD) Referrals: NO,LOCAL PHYSICIAN (PCP/Family) Primary Care Physician Patient Instructions: Urinary Tract Infection, Adult (DC) Add. Discharge Instructions: Take the antibiotics as prescribed. Your prescription has been sent to the [facility]. Please take Tylenol or ibuprofen as needed for pain. You can also take over the counter AZO for bladder spasms. This medication can turn your urine orange. Follow up with your [facility] Urologist. Come back to the Emergency Department for any persistent fever with your abdominal pain, further catheter issues or any other emergent concerns. Scripts Sulfamethoxazole/Trimethoprim (Sulfamethoxazole-Tmp Ss Tablet) 1 Each Tablet 1 EACH PO BID, #14 TAB Prov: KISHAN NGUYEN MD 07/29/20 Ciprofloxacin HCl (Ciprofloxacin HCl) 500 Mg Tablet 500 MG PO BID, #20 TAB Prov: KISHAN NGUYEN MD 07/29/20 I have reviewed the medical students history and physical exam, as well as assessment and plan. I agree with their findings and documentation, except where otherwise noted. (KISHAN NGUYEN MD) KENNY CHENG STUDENT Jul 29, 2020 13:03 KISHAN NGUYEN MD Jul 29, 2020 13:24
[2020-07-29 13:37] LABS: BILIRUBIN,URINE NEGATIVE (NEGATIVE); CLARITY,URINE TURBID; COLOR,URINE ORANGE; GLUCOSE, URINE (UA) NEGATIVE (NEGATIVE); KETONES,URINE NEGATIVE (NEGATIVE); LEUKOCYTE ESTERASE ,URINE 3+ (NEGATIVE); NITRITE,URINE NEGATIVE (NEGATIVE); PROTEIN,URINE 2+ (NEGATIVE)
[2020-07-29 13:46] LABS: BACTERIA,URINE LARGE /HPF; RBC,URINE TNTC /HPF; WBC,URINE TNTC /HPF
--- NOTE | 2020-07-29 14:29 | NUR ---
NOTIFIED HIM THAT HIS URINE WAS BACK ET WE WERE WAITING ON THE DR WHO WAS WITH OTHER PTS. PT STATES HE NEEDS TO LEAVE BECAUSE HIS IS WAITING ON HIM.
[2020-07-29] MEDS ORDERED: CIPR500T4 PO (14:36)
--- NOTE | 2020-07-29 14:43 | NUR ---
IN TALKING TO THE PT AT THIS TIME.
[2020-07-29] MEDS ORDERED: SULF-11 PO (14:45)
[2020-07-29] MEDS ORDERED: ACETAMINOPHEN 500 MG TAB (TYLENOL) PO ONE (14:45)
[2020-07-29 14:46] VITALS: BP 148/70
== END 2020-07-29 14:46 | disposition home or self-care (01) ==
LOC: EDUNIT# 12:00 → ER 12:02
DX: N39.0 Urinary tract infection, site not specified (principal); I10 Essential (primary) hypertension; E03.9 Hypothyroidism, unspecified; E78.00 Pure hypercholesterolemia, unspecified; E11.9 Type 2 diabetes mellitus without complications; G89.29 Other chronic pain; M54.9 Dorsalgia, unspecified; Z85.46 Personal history of malignant neoplasm of prostate; Z79.890 Hormone replacement therapy; Z79.4 Long term (current) use of insulin; Z79.891 Long term (current) use of opiate analgesic; Z79.82 Long term (current) use of aspirin
CPT/HCPCS: 81000; 87077; 87088; 99283

== ENCOUNTER 2020-08-13 03:55 | Emergency (ER) | payer MEDICARE, OTHER ==
[~2020-08-13] VITALS: Ht 167.7 cm; Wt 69.8 kg
[~2020-08-13 03:55] MED LIST changes: +CIPR500T4 PO; +SULF-11 PO
--- NOTE | 2020-08-13 04:13 | ED GU-Male ---
General Chief Complaint: - Urinary Stated Complaint: CATHETER NOT DRAINING Source: patient Exam Limitations: no limitations History of Present Illness Date Seen by Provider: Aug 13, 2020 Time Seen by Provider: 04:05 Initial Comments The patient presents to the ER from home with his spouse by private conveyance with chief complaint of having a blocked suprapubic catheter. This happens frequently. His original surgery was by Dr. Hurley and Dr. Canales, urology. He denies fever, nausea, diarrhea. He's having modest pain around the bladder suprapubic region. No discharge from his urostomy. His tried twice to flush it a couple hours ago unsuccessfully. Allergies and Home Medications Allergies Coded Allergies: No Known Drug Allergies (Unverified , 03/05/10) Home Medications Aspirin 81 Mg Tablet.dr, 81 MG PO DAILY, (Reported) Atorvastatin Calcium 40 Mg Tablet, 40 MG PO DAILY, (Reported) Ciprofloxacin HCl 500 Mg Tablet, 500 MG PO BID Prescribed by: KISHAN NGUYEN on 07/29/20 1436 Furosemide 20 Mg Tablet, 20 MG PO DAILY, (Reported) Gabapentin 300 Mg Capsule, 300 MG PO TID, (Reported) Hydrocodone Bit/Acetaminophen 1 Each Tablet, 1 TAB PO Q6H PRN for PAIN, (Reported) Insulin NPH Hum/Reg Insulin Hm 100 Unit/1 Ml Vial, 35 UNIT SQ MORNING, (Reported) Insulin NPH Hum/Reg Insulin Hm 100 Unit/1 Ml Vial, 30 UNIT SQ HS, (Reported) Levothyroxine Sodium 112 Mcg Tablet, 112 MCG PO DAILY, (Reported) Lisinopril 10 Mg Tablet, 5 MG PO DAILY, (Reported) Nitrofurantoin Monohyd/M-Cryst 100 Mg Capsule, 1 TAB PO BID Prescribed by: FRANCI SHARIF on 06/23/20 0102 Oxybutynin Chloride 5 Mg Tablet, 5 MG PO TID, (Reported) Potassium Chloride 20 Meq Tab.er.prt, 20 MEQ PO DAILY, (Reported) Rifampin 300 Mg Capsule, 300 MG PO BID, (Reported) Sulfamethoxazole/Trimethoprim 1 Each Tablet, 1 EACH PO BID Prescribed by: LAZARO SEAMAN on 06/08/20 0642 Sulfamethoxazole/Trimethoprim 1 Each Tablet, 1 EACH PO BID Prescribed by: KISHAN NGUYEN on 07/29/20 1445 Sulfamethoxazole/Trimethoprim 1 Each Tablet, 1 EACH PO BID Prescribed by: GARRETT TONEY on 08/13/20 0511 Vitamin B Complex 1 Each Tablet, 1 TAB PO DAILY, (Reported) Patient Home Medication List Home Medication List Reviewed: Yes Review of Systems Review of Systems Constitutional: No chills, No fever EENTM: No ear discharge, No ear pain Respiratory: No cough, No short of breath Cardiovascular: No chest pain, No palpitations Gastrointestinal: abdominal pain; No constipation, No diarrhea, No nausea Genitourinary: see HPI; denies burning, denies discharge Musculoskeletal: No back pain, No joint pain All Other Systemes Reviewed Negative Unless Noted: Yes Past Kikrnuq-Jecitr-Inrjkj Hx Patient Social History Alcohol Use: Denies Use Recreational Drug Use: No 2nd Hand Smoke Exposure: No Recent Foreign Travel: No Contact w/Someone Who Travel: No Recent Hopitalizations: Yes Immunizations Up To Date Date of Pneumonia Vaccine: Sep 27, 2009 Date of Influenza Vaccine: Jul 28, 2013 Past Medical History Surgeries: Yes (MULTIPLE SKIN GRAFTS R LEG;SUPRAPUBIC CATH 2009;LYMPH NODE REM W/PROSTATE ) Abdominal, Amputation, Appendectomy, Bladder Surgery, Eye Surgery, Gallbladder, Orthopedic, Penile Implant, Prostatectomy Respiratory: Yes (POST OP MRSA PNEUMONIA/RESP FAILURE/VENTILATOR 2009) Cardiac: Yes High Cholesterol, Hypertension Neurological: No Reproductive Disorders: No Genitourinary: Yes (SUPRAPUBIC CATHETER SINCE 2009;PROSTATECTOMY/LYMPH NODE REMOVAL;PROSTATE CA) Prostate Problems, Renal Failure Gastrointestinal: Yes (S/P CHOLECYSTECTOMY; IBS-C) Gastroesophageal Reflux, Chronic Constipation, Pancreatitis, Gall Bladder Disease, Irritable Bowel Musculoskeletal: Yes (RIGHT TOE AMPUTATION;OSTEOMYELITIS R FOOT) Amputee, Arthritis, Chronic Back Pain Endocrine: Yes Diabetes, Insulin dep, Hypothyroidsim HEENT: No Cancer: Yes Prostate Did You Recieve Any Treatments: Yes What Type of Treatment Did You: Surgical Intervention Psychosocial: No Integumentary: Yes (CNANON WITH SKIN GRAFTS RIGHT LEG;OSTEOMYELITIS R FOOT;CHRONIC WOUNDS R FOOT) Blood Disorders: No Family Medical History No Pertinent Family Hx PSH: -EYE SURGERY -SKIN GRAFTS RIGHT LEG -RIGHT TOE AMPUTATION -PANCREAS SURGERY -PENILE IMPLANT -PROSTATECTOMY WITH LYMPH NODE REMOVAL -SUPRAPUBIC CATHETER 2009 -CHOLECYSTECTOMY -BRONCHOSCOPY 2009--POST OP RESP FAILURE/MRSA PNEUMONIA/VENTILATOR Physical Exam Vital Signs Vital Signs - First Documented 08/13/20 04:06 Temp 36.9 Pulse 97 Resp 20 B/P (MAP) 134/92 (106) Pulse Ox 95 O2 Delivery Room Air Capillary Refill : Height, Weight, BMI Height: 5'6.00" Weight: 170lbs. 0.0oz. 77.313774mk; 24.00 BMI Method:Stated General Appearance: WD/WN, mild distress HEENT: PERRL/EOMI, pharynx normal Neck: full range of motion, normal inspection Cardiovascular: normal peripheral pulses, regular rate, rhythm Respiratory: no respiratory distress, no accessory muscle use Gastrointestinal: normal bowel sounds, soft, tenderness, other (suprapubic region urostomy without erythema or significant discharge. Clean, dry and intact. Suprapubic catheter in place with a urinary bag with about 100 cc of clear, yellow urine) Neurologic/Psychiatric: alert, oriented x 3 Skin: normal color, warm/dry Progress/Results/Core Measures Suspected Sepsis SIRS Temperature: Pulse: Respiratory Rate: Blood Pressure / Mean: Results/Orders Lab Results Laboratory Tests Test 08/13/20 04:32 Range/Units Urine Color YELLOW Urine Clarity TURBID Urine pH 6.5 5-9 Urine Specific [place] 1.020 1.016-1.022 Urine Protein TRACE H NEGATIVE Urine Glucose (UA) NEGATIVE NEGATIVE Urine Ketones NEGATIVE NEGATIVE Urine Nitrite POSITIVE H NEGATIVE Urine Bilirubin NEGATIVE NEGATIVE Urine Urobilinogen 1.0 < = 1.0 MG/DL Urine Leukocyte Esterase 3+ H NEGATIVE Urine RBC (Auto) 2+ H NEGATIVE Urine RBC 5-10 H /HPF Urine WBC 50-100 H /HPF Urine Squamous Epithelial Cells 0-2 /HPF Urine Crystals NONE /LPF Urine Bacteria FEW H /HPF Urine Casts NONE /LPF Urine Mucus SMALL H /LPF Urine Yeast FEW H /HPF Urine Culture Indicated YES My Orders Orders - GARRETT TONEY Ua Culture If Indicated (08/13/20 04:09) Urine Culture (08/13/20 04:32) Ceftriaxone For Im Use (Rocephin For Im (08/13/20 05:15) Lidocaine 1% Inj 20 Ml (Xylocaine 1% Inj (08/13/20 05:15) Vital Signs/I&O 08/13/20 04:06 Temp 36.9 Pulse 97 Resp 20 B/P (MAP) 134/92 (106) Pulse Ox 95 O2 Delivery Room Air Capillary Refill : Progress Note #1: Time: 04:12 Progress Note Nursing will attempt to flush the catheter and if unsuccessful replace the catheter. Urinalysis. Bedside urine residual is 999. Unable to pass the obstruction easily by flushing so the urinary catheter will be replaced. Progress Note #2: Time: 04:33 Progress Note Post void residual 25 cc. approximately 1 L out. Progress Note #3: Time: 05:10 Progress Note Gram of Rocephin IM. Departure Impression Primary Impression: Complication, suprapubic catheter obstruction Qualified Codes: T83.090A - Other mechanical complication of cystostomy catheter, initial encounter Disposition: HOME, SELF-CARE Condition: Improved Departure-Patient Inst. Decision time for Depature: 05:10 Referrals: NO,LOCAL PHYSICIAN (PCP) Primary Care Physician Patient Instructions: Urinary Tract Infection, Adult (DC), Urinary Obstruction (DC) Add. Discharge Instructions: Bactrim one capsule twice daily with food for the next 7 days. Drink lots of fluids. If your catheter becomes obstructed attempt to flush and clear. If you are unsuccessful then you may return to the ER or your primary doctor. Your urologist can also help in the clinic if you give them a call during business hours. Tylenol 1000 mg every 8 hours as necessary for pain. All discharge instructions reviewed with patient and/or family. Voiced understanding. Scripts Sulfamethoxazole/Trimethoprim (Bactrim Ds Tablet) 1 Each Tablet 1 EACH PO BID for 7 Days, #14 TAB 0 Refills Prov: GARRETT TONEY 08/13/20 GARRETT TONEY Aug 13, 2020 04:13
[2020-08-13 04:38] LABS: BILIRUBIN,URINE NEGATIVE (NEGATIVE); CLARITY,URINE TURBID; COLOR,URINE YELLOW; GLUCOSE, URINE (UA) NEGATIVE (NEGATIVE); KETONES,URINE NEGATIVE (NEGATIVE); LEUKOCYTE ESTERASE ,URINE 3+ (NEGATIVE); NITRITE,URINE POSITIVE (NEGATIVE); PH,URINE 6.5 (5-9); PROTEIN,URINE TRACE (NEGATIVE)
[2020-08-13 04:55] LABS: BACTERIA,URINE FEW /HPF; SQUAMOUS EPITHELIAL CELL,UR 0-2 /HPF; WBC,URINE 50-100 /HPF; YEAST,URINE FEW /HPF
[2020-08-13] MEDS ORDERED: SULF1TAB35 PO (05:11)
[2020-08-13] MEDS ORDERED: LIDOCAINE 1% INJ 20 ML 20 ML VIAL INJ ONE (05:15)
[2020-08-13] MEDS ORDERED: cefTRIAXone 1,000 MG/2.86 ml vial (IM ONLY) IM ONE (05:15)
[2020-08-13 05:34] VITALS: BP 134/77
== END 2020-08-13 05:34 | disposition home or self-care (01) ==
LOC: EDUNIT# 03:55 → ER 03:58
DX: T83.098A Other mechanical complication of other urinary catheter, initial encounter (principal); E78.00 Pure hypercholesterolemia, unspecified; I10 Essential (primary) hypertension; E03.9 Hypothyroidism, unspecified; G89.29 Other chronic pain; M54.9 Dorsalgia, unspecified; E11.9 Type 2 diabetes mellitus without complications; Z85.46 Personal history of malignant neoplasm of prostate; Z79.890 Hormone replacement therapy; Z79.82 Long term (current) use of aspirin; Z79.4 Long term (current) use of insulin; Z79.891 Long term (current) use of opiate analgesic
CPT/HCPCS: 51702; 81000; 87077; 87088

== ENCOUNTER 2020-08-28 21:42 | Emergency (ER) | payer MEDICARE, OTHER ==
[~2020-08-28] VITALS: Ht 167.7 cm; Wt 70.7 kg
[2020-08-28 22:00] VITALS: BP 142/76
--- NOTE | 2020-08-28 22:35 | NUR ---
ATTEMPTED TO FLUSH SUPRAPUBIC CATHETER WITHOUT SUCCESS. DR. TONEY NOTIFIED. NEW ORDERS TO REMOVE CURRENT CATHETER AND REPLACE WITH NEW.
--- NOTE | 2020-08-28 22:43 | ED GU-Male ---
General Chief Complaint: - Urinary Stated Complaint: BLOCKED CATH. Nursing Triage Note: TO ED VIA POV AND AMBULATORY TO ROOM 6 WITH C/O BLOCKED SUPRAPUBIC CATHETER THAT HE NOTICED 2H SCAFFOLDER. Source: patient Exam Limitations: no limitations History of Present Illness Date Seen by Provider: Aug 28, 2020 Time Seen by Provider: 21:58 Initial Comments Patient presents to the ER by private conveyance from home with chief complaint of his suprapubic catheter being blocked for the past 2 hours. He says he always has some stringy mucus in it. He says he thinks that this one is about 2-4 weeks old. He follows with the urologist in [place]. He is not having any fevers chills nausea vomiting diarrhea. Allergies and Home Medications Allergies Coded Allergies: No Known Drug Allergies (Unverified , 03/05/10) Home Medications Aspirin 81 Mg Tablet.dr, 81 MG PO DAILY, (Reported) Atorvastatin Calcium 40 Mg Tablet, 40 MG PO DAILY, (Reported) Ciprofloxacin HCl 500 Mg Tablet, 500 MG PO BID Prescribed by: KISHAN NGUYEN on 07/29/20 1436 Furosemide 20 Mg Tablet, 20 MG PO DAILY, (Reported) Gabapentin 300 Mg Capsule, 300 MG PO TID, (Reported) Hydrocodone Bit/Acetaminophen 1 Each Tablet, 1 TAB PO Q6H PRN for PAIN, (Reported) Insulin NPH Hum/Reg Insulin Hm 100 Unit/1 Ml Vial, 35 UNIT SQ MORNING, (Reported) Insulin NPH Hum/Reg Insulin Hm 100 Unit/1 Ml Vial, 30 UNIT SQ HS, (Reported) Levothyroxine Sodium 112 Mcg Tablet, 112 MCG PO DAILY, (Reported) Lisinopril 10 Mg Tablet, 5 MG PO DAILY, (Reported) Nitrofurantoin Monohyd/M-Cryst 100 Mg Capsule, 1 TAB PO BID Prescribed by: FRANCI SHARIF on 06/23/20 0102 Oxybutynin Chloride 5 Mg Tablet, 5 MG PO TID, (Reported) Potassium Chloride 20 Meq Tab.er.prt, 20 MEQ PO DAILY, (Reported) Rifampin 300 Mg Capsule, 300 MG PO BID, (Reported) Sulfamethoxazole/Trimethoprim 1 Each Tablet, 1 EACH PO BID Prescribed by: LAZARO SEAMAN on 06/08/20 0642 Sulfamethoxazole/Trimethoprim 1 Each Tablet, 1 EACH PO BID Prescribed by: KISHAN NGUYEN on 07/29/20 1445 Sulfamethoxazole/Trimethoprim 1 Each Tablet, 1 EACH PO BID Prescribed by: GARRETT TONEY on 08/13/20 0511 Vitamin B Complex 1 Each Tablet, 1 TAB PO DAILY, (Reported) Patient Home Medication List Home Medication List Reviewed: Yes Review of Systems Review of Systems Constitutional: No chills, No diaphoresis, No fever EENTM: No ear discharge, No ear pain Respiratory: No cough, No short of breath Cardiovascular: No chest pain, No palpitations Gastrointestinal: No abdominal pain, No nausea Genitourinary: denies burning, denies dysuria Musculoskeletal: No back pain, No joint pain Skin: No change in color, No dryness Psychiatric/Neurological: Denies Anxiety, Denies Depressed All Other Systemes Reviewed Negative Unless Noted: Yes Past Pdkepqq-Noghea-Zlneoa Hx Patient Social History Alcohol Use: Denies Use Recreational Drug Use: No 2nd Hand Smoke Exposure: No Recent Foreign Travel: No Contact w/Someone Who Travel: No Recent Infectious Disease Expo: No Recent Hopitalizations: Yes Physical Abuse: No Sexual Abuse: No Mistreated: No Fear: No Immunizations Up To Date Tetanus Booster (TDap): Unknown Date of Pneumonia Vaccine: Sep 27, 2009 Date of Influenza Vaccine: Aug 05, 2020 Past Medical History Surgeries: Yes (MULTIPLE SKIN GRAFTS R LEG;SUPRAPUBIC CATH 2009;LYMPH NODE REM W/PROSTATE ) Abdominal, Amputation, Appendectomy, Bladder Surgery, Eye Surgery, Gallbladder, Orthopedic, Penile Implant, Prostatectomy Respiratory: Yes (POST OP MRSA PNEUMONIA/RESP FAILURE/VENTILATOR 2009) Cardiac: Yes High Cholesterol, Hypertension Neurological: No Reproductive Disorders: No Genitourinary: Yes (SUPRAPUBIC CATHETER SINCE 2009;PROSTATECTOMY/LYMPH NODE REMOVAL;PROSTATE CA) Prostate Problems, Renal Failure Gastrointestinal: Yes (S/P CHOLECYSTECTOMY; IBS-C) Gastroesophageal Reflux, Chronic Constipation, Pancreatitis, Gall Bladder Disease, Irritable Bowel Musculoskeletal: Yes (RIGHT TOE AMPUTATION;OSTEOMYELITIS R FOOT) Amputee, Arthritis, Chronic Back Pain Endocrine: Yes Diabetes, Insulin dep, Hypothyroidsim HEENT: No Cancer: Yes Prostate Did You Recieve Any Treatments: Yes What Type of Treatment Did You: Surgical Intervention Psychosocial: No Integumentary: Yes (CANNON WITH SKIN GRAFTS RIGHT LEG;OSTEOMYELITIS R FOOT;CHRONIC WOUNDS R FOOT) Blood Disorders: No Family Medical History No Pertinent Family Hx PSH: -EYE SURGERY -SKIN GRAFTS RIGHT LEG -RIGHT TOE AMPUTATION -PANCREAS SURGERY -PENILE IMPLANT -PROSTATECTOMY WITH LYMPH NODE REMOVAL -SUPRAPUBIC CATHETER 2009 -CHOLECYSTECTOMY -BRONCHOSCOPY 2009--POST OP RESP FAILURE/MRSA PNEUMONIA/VENTILATOR Physical Exam Vital Signs Vital Signs - First Documented 08/28/20 22:00 Temp 36.6 Pulse 108 Resp 20 B/P (MAP) 142/76 (98) O2 Delivery Room Air Capillary Refill : Less Than 3 Seconds Height, Weight, BMI Height: 5'6.00" Weight: 170lbs. 0.0oz. 77.444824hu; 25.00 BMI Method:Stated General Appearance: WD/WN, mild distress HEENT: PERRL/EOMI, pharynx normal Neck: full range of motion, supple, normal inspection Cardiovascular: normal peripheral pulses, regular rate, rhythm Respiratory: no respiratory distress, no accessory muscle use Gastrointestinal: soft, tenderness (suprapubic) Neurologic/Psychiatric: alert, normal mood/affect, oriented x 3 Progress/Results/Core Measures Suspected Sepsis Recent Fever Within 48 Hours: No Infection Criteria Present: Suspected New Infection New/Unexplained Altered Menta: No Sepsis Screen: No Definite Risk SIRS Temperature: Pulse: 108 Respiratory Rate: 20 Blood Pressure 142 /76 Mean: 98 Results/Orders Lab Results Laboratory Tests Test 08/28/20 22:35 Range/Units Urine Color YELLOW Urine Clarity SL CLOUDY Urine pH 7.0 5-9 Urine Specific [place] 1.010 L 1.016-1.022 Urine Protein 1+ H NEGATIVE Urine Glucose (UA) 3+ H NEGATIVE Urine Ketones NEGATIVE NEGATIVE Urine Nitrite POSITIVE H NEGATIVE Urine Bilirubin NEGATIVE NEGATIVE Urine Urobilinogen 1.0 < = 1.0 MG/DL Urine Leukocyte Esterase 2+ H NEGATIVE Urine RBC (Auto) 1+ H NEGATIVE Urine RBC RARE /HPF Urine WBC 10-25 H /HPF Urine Squamous Epithelial Cells NONE /HPF Urine Crystals NONE /LPF Urine Bacteria FEW H /HPF Urine Casts NONE /LPF Urine Mucus NEGATIVE /LPF Urine Culture Indicated YES My Orders Orders - GARRETT TONEY Ua Culture If Indicated (08/28/20 21:45) Urinary Catheter: Hand Irrigat (08/28/20 22:44) Navarrete Cath (08/28/20 22:44) Urine Culture (08/28/20 22:35) Vital Signs/I&O 08/28/20 22:00 Temp 36.6 Pulse 108 Resp 20 B/P (MAP) 142/76 (98) O2 Delivery Room Air Capillary Refill : Less Than 3 Seconds Blood Pressure Mean: 98 Progress Note : Time: 22:38 Progress Note Unable to clear the blockage by flushing so the suprapubic catheter was replaced and is draining copious yellow clear urine. Departure Impression Primary Impression: Complication, suprapubic catheter obstruction Qualified Codes: T83.090A - Other mechanical complication of cystostomy catheter, initial encounter Additional Impression: Urinary tract infection Qualified Codes: T83.510A - Infection and inflammatory reaction due to cystostomy catheter, initial encounter; N39.0 - Urinary tract infection, site not specified Disposition: 01 HOME, SELF-CARE Condition: Improved Departure-Patient Inst. Decision time for Depature: 23:00 Referrals: NO,LOCAL PHYSICIAN (PCP/Family) Primary Care Physician Patient Instructions: Urinary Obstruction (DC) Add. Discharge Instructions: Drink plenty of fluids. If this continues to be a problem may return to the ER and follow-up with your urologist. All discharge instructions reviewed with patient and/or family. Voiced understanding. Scripts Sulfamethoxazole/Trimethoprim (Bactrim Ds Tablet) 1 Each Tablet 1 EACH PO BID for 10 Days, #20 TAB 0 Refills Prov: GARRETT TONEY 08/28/20 GARRETT TONEY Aug 28, 2020 22:43
[2020-08-28 22:46] LABS: BILIRUBIN,URINE NEGATIVE (NEGATIVE); CLARITY,URINE SL CLOUDY; COLOR,URINE YELLOW; GLUCOSE, URINE (UA) 3+ (NEGATIVE); KETONES,URINE NEGATIVE (NEGATIVE); LEUKOCYTE ESTERASE ,URINE 2+ (NEGATIVE); NITRITE,URINE POSITIVE (NEGATIVE); PROTEIN,URINE 1+ (NEGATIVE)
[2020-08-28 22:59] LABS: BACTERIA,URINE FEW /HPF; RBC,URINE RARE /HPF
[2020-08-28] MEDS ORDERED: SULF1TAB35 PO (23:05)
[2020-08-28] MEDS ORDERED: TRIM/SULFAMETH 160/800 (SEPTRA DS) TAB PO ONE (23:15)
== END 2020-08-28 23:11 | disposition home or self-care (01) ==
LOC: EDUNIT# 21:42 → ER 21:44
DX: T83.098A Other mechanical complication of other urinary catheter, initial encounter (principal); N39.0 Urinary tract infection, site not specified; I10 Essential (primary) hypertension; E78.00 Pure hypercholesterolemia, unspecified; E03.9 Hypothyroidism, unspecified; E11.9 Type 2 diabetes mellitus without complications; G89.29 Other chronic pain; M54.9 Dorsalgia, unspecified; Z85.46 Personal history of malignant neoplasm of prostate; Z79.891 Long term (current) use of opiate analgesic; Z79.4 Long term (current) use of insulin; Z79.82 Long term (current) use of aspirin
CPT/HCPCS: 51702; 81000; 87088

== ENCOUNTER 2020-10-13 23:21 | Emergency (ER) | payer MEDICARE, OTHER ==
[~2020-10-13] VITALS: Ht 167.7 cm; Wt 70.7 kg
--- NOTE | 2020-10-13 23:43 | ED GU-Male ---
General Stated Complaint: URINE CATHETER ISSUES Source: patient Exam Limitations: no limitations History of Present Illness Date Seen by Provider: Oct 13, 2020 Time Seen by Provider: 23:29 Initial Comments Here with complaint of catheter problems. Patient has long-term suprapubic catheter and has occasional blockages. Last 1 was 1 month ago. States he had it changed last week. Was noted at about 7 PM tonight that he had no urine output and that continued. Started feeling increasing fullness in his abdomen. Reports quite tender currently. Denies fever, chills, nausea, vomiting or diarrhea. He has no urine output through the urethra. Timing/Duration: this evening, getting worse Severity/Quality: aching Location: suprapubic Radiation: none Activities at Onset: none Prior Genitourinary Problems: similar symptoms Associated Symptoms: No fever/chills, No nausea/vomiting Allergies and Home Medications Allergies Coded Allergies: No Known Drug Allergies (Unverified , 10/13/20) Home Medications Aspirin 81 Mg Tablet.dr, 81 MG PO DAILY, (Reported) Atorvastatin Calcium 40 Mg Tablet, 40 MG PO DAILY, (Reported) Ciprofloxacin HCl 500 Mg Tablet, 500 MG PO BID Prescribed by: KISHAN NGUYEN on 07/29/20 1436 Furosemide 20 Mg Tablet, 20 MG PO DAILY, (Reported) Gabapentin 300 Mg Capsule, 300 MG PO TID, (Reported) Hydrocodone Bit/Acetaminophen 1 Each Tablet, 1 TAB PO Q6H PRN for PAIN, (Reported) Insulin NPH Hum/Reg Insulin Hm 100 Unit/1 Ml Vial, 35 UNIT SQ MORNING, (Reported) Insulin NPH Hum/Reg Insulin Hm 100 Unit/1 Ml Vial, 30 UNIT SQ HS, (Reported) Levothyroxine Sodium 112 Mcg Tablet, 112 MCG PO DAILY, (Reported) Lisinopril 10 Mg Tablet, 5 MG PO DAILY, (Reported) Nitrofurantoin Monohyd/M-Cryst 100 Mg Capsule, 1 TAB PO BID Prescribed by: FRANCI SHARIF on 06/23/20 010 Oxybutynin Chloride 5 Mg Tablet, 5 MG PO TID, (Reported) Potassium Chloride 20 Meq Tab.er.prt, 20 MEQ PO DAILY, (Reported) Rifampin 300 Mg Capsule, 300 MG PO BID, (Reported) Sulfamethoxazole/Trimethoprim 1 Each Tablet, 1 EACH PO BID Prescribed by: LAZARO SEAMAN on 06/08/20 0642 Sulfamethoxazole/Trimethoprim 1 Each Tablet, 1 EACH PO BID Prescribed by: KISHAN NGUYEN on 07/29/20 1445 Sulfamethoxazole/Trimethoprim 1 Each Tablet, 1 EACH PO BID Prescribed by: GARRETT TONEY on 08/13/20 0511 Sulfamethoxazole/Trimethoprim 1 Each Tablet, 1 EACH PO BID Prescribed by: GARRETT TONEY on 08/28/20 2305 Vitamin B Complex 1 Each Tablet, 1 TAB PO DAILY, (Reported) Patient Home Medication List Home Medication List Reviewed: Yes Review of Systems Review of Systems Constitutional: see HPI; No chills, No fever Respiratory: No cough, No short of breath Cardiovascular: no symptoms reported Gastrointestinal: see HPI Genitourinary: see HPI, pain Skin: no symptoms reported Past Hudannk-Ktknqi-Yrwild Hx Past Med/Social Hx: Reviewed Nursing Past Med/Soc Hx Patient Social History Alcohol Use: Denies Use Smoking Status: Never a Smoker 2nd Hand Smoke Exposure: No Recent Hopitalizations: Yes Immunizations Up To Date Tetanus Booster (TDap): Unknown Date of Pneumonia Vaccine: Sep 27, 2009 Date of Influenza Vaccine: Aug 05, 2020 Past Medical History Surgeries: Yes (MULTIPLE SKIN GRAFTS R LEG;SUPRAPUBIC CATH 2009;LYMPH NODE REM W/PROSTATE ) Abdominal, Amputation, Appendectomy, Bladder Surgery, Eye Surgery, Gallbladder, Orthopedic, Penile Implant, Prostatectomy Respiratory: Yes (POST OP MRSA PNEUMONIA/RESP FAILURE/VENTILATOR 2009) Cardiac: Yes High Cholesterol, Hypertension Neurological: No Reproductive Disorders: No Genitourinary: Yes (SUPRAPUBIC CATHETER SINCE 2009;PROSTATECTOMY/LYMPH NODE REMOVAL;PROSTATE CA) Prostate Problems, Renal Failure Gastrointestinal: Yes (S/P CHOLECYSTECTOMY; IBS-C) Gastroesophageal Reflux, Chronic Constipation, Pancreatitis, Gall Bladder Disease, Irritable Bowel Musculoskeletal: Yes (RIGHT TOE AMPUTATION;OSTEOMYELITIS R FOOT) Amputee, Arthritis, Chronic Back Pain Endocrine: Yes Diabetes, Insulin dep, Hypothyroidsim HEENT: No Cancer: Yes Prostate Did You Recieve Any Treatments: Yes What Type of Treatment Did You: Surgical Intervention Psychosocial: No Integumentary: Yes (CANNON WITH SKIN GRAFTS RIGHT LEG;OSTEOMYELITIS R F OOT;CHRONIC WOUNDS R FOOT) Blood Disorders: No Family Medical History Reviewed Nursing Family Hx No Pertinent Family Hx PSH: -EYE SURGERY -SKIN GRAFTS RIGHT LEG -RIGHT TOE AMPUTATION -PANCREAS SURGERY -PENILE IMPLANT -PROSTATECTOMY WITH LYMPH NODE REMOVAL -SUPRAPUBIC CATHETER 2009 -CHOLECYSTECTOMY -BRONCHOSCOPY 2009--POST OP RESP FAILURE/MRSA PNEUMONIA/VENTILATOR Physical Exam Vital Signs Vital Signs - First Documented 10/13/20 23:30 Temp 36.1 Pulse 118 Resp 18 B/P (MAP) 176/109 (131) Pulse Ox 94 Capillary Refill : Height, Weight, BMI Height: 5'6.00" Weight: 170lbs. 0.0oz. 77.886147gv; 25.00 BMI Method:Stated General Appearance: WD/WN, no apparent distress Cardiovascular: no murmur, tachycardia Respiratory: lungs clear, normal breath sounds Gastrointestinal: soft, other (Suprapubic fullness noted) Neurologic/Psychiatric: alert, oriented x 3 Skin: normal color, warm/dry Progress/Results/Core Measures Suspected Sepsis SIRS Temperature: Pulse: Respiratory Rate: Blood Pressure / Mean: Results/Orders Lab Results Laboratory Tests Test 10/13/20 23:46 Range/Units Urine Color YELLOW Urine Clarity CLOUDY Urine pH 6.5 5-9 Urine Specific [place] 1.015 L 1.016-1.022 Urine Protein 1+ H NEGATIVE Urine Glucose (UA) 3+ H NEGATIVE Urine Ketones NEGATIVE NEGATIVE Urine Nitrite NEGATIVE NEGATIVE Urine Bilirubin NEGATIVE NEGATIVE Urine Urobilinogen 1.0 < = 1.0 MG/DL Urine Leukocyte Esterase 2+ H NEGATIVE Urine RBC (Auto) 2+ H NEGATIVE Urine RBC 25-50 H /HPF Urine WBC 25-50 H /HPF Urine Squamous Epithelial Cells 2-5 /HPF Urine Crystals NONE /LPF Urine Calcium Oxalate Crystals FEW H /LPF Urine Amorphous Sediment FEW ZAIRA PHOSPHATE H /LPF Urine Bacteria MODERATE H /HPF Urine Casts PRESENT /LPF Urine Mucus SMALL H /LPF Urine Culture Indicated YES My Orders Orders - LAZARO SEAMAN MD Ua Culture If Indicated (10/13/20 23:43) Navarrete Cath (10/13/20 23:55) Urine Culture (10/13/20 23:46) Sulfamethoxazole/Trimet Ds Tab (Bactrim (10/14/20 00:13) Vital Signs/I&O 10/13/20 23:30 Temp 36.1 Pulse 118 Resp 18 B/P (MAP) 176/109 (131) Pulse Ox 94 Capillary Refill : Progress Note : Progress Note Seen and evaluated. Suprapubic catheter changed by nursing. UA ordered. Typically has multiple organisms. Most recently started on Bactrim DS on last occasion we will do the same this time. 0015: Patient feels much better now. Greater than 1000 output. UA does show urinary tract infection. Patient figured that was going to be the case. Bactrim DS started. Discharged home with return precautions. Patient verbalized understanding of instructions and agreement with plan. Departure Impression Primary Impression: Complication, suprapubic catheter obstruction Qualified Codes: T83.090A - Other mechanical complication of cystostomy catheter, initial encounter Additional Impression: Urinary tract infection Qualified Codes: N30.01 - Acute cystitis with hematuria Disposition: HOME, SELF-CARE Condition: Improved Departure-Patient Inst. Decision time for Depature: 00:15 Referrals: NO,LOCAL PHYSICIAN (PCP/Family) Primary Care Physician Patient Instructions: How to Care for Your Suprapubic Urinary Catheter, Urinary Tract Infection, Adult (DC) Add. Discharge Instructions: Continue normal catheter care. Follow-up with your doctor in a few days for recheck. Take medications as directed. Drink plenty of fluids. Return for worse pain, fever, vomiting, weakness, breathing problems or other concerns as needed. Scripts Sulfamethoxazole/Trimethoprim (Bactrim Ds Tablet) 1 Each Tablet 1 EACH PO BID, #14 TAB 0 Refills Prov: LAZARO SEAMAN MD 10/14/20 LAZARO SEAMAN MD Oct 13, 2020 23:43
--- NOTE | 2020-10-13 23:46 | NUR ---
CURRENT SUPRAPUBIC CATHETER REMOVED AND NEW 18FR CATHETER PLACED PER DR. SEAMAN. IMMEDIATE RETURN OF CLEAR YELLOW URINE RETURN AND PT VERBALIZED RELIEF.
[2020-10-13 23:52] LABS: BILIRUBIN,URINE NEGATIVE (NEGATIVE); CLARITY,URINE CLOUDY; COLOR,URINE YELLOW; GLUCOSE, URINE (UA) 3+ (NEGATIVE); KETONES,URINE NEGATIVE (NEGATIVE); LEUKOCYTE ESTERASE ,URINE 2+ (NEGATIVE); NITRITE,URINE NEGATIVE (NEGATIVE); PH,URINE 6.5 (5-9); PROTEIN,URINE 1+ (NEGATIVE)
[2020-10-14 00:09] LABS: BACTERIA,URINE MODERATE /HPF; CALCIUM OXALATE CRYSTALS,UR FEW /LPF; RBC,URINE 25-50 /HPF; WBC,URINE 25-50 /HPF
[2020-10-14 00:10] LABS: AMORPHOUS SEDIMENT,UR FEW AMOR PHOSPHATE /LPF
[2020-10-14] MEDS ORDERED: TRIM/SULFAMETH 160/800 (SEPTRA DS) TAB PO STA (00:13)
[2020-10-14] MEDS ORDERED: SULF1TAB35 PO (00:18)
[2020-10-14 00:40] VITALS: BP 110/76
== END 2020-10-14 00:40 | disposition home or self-care (01) ==
LOC: EDUNIT# 23:21 → ER 23:24
DX: T83.098A Other mechanical complication of other urinary catheter, initial encounter (principal); N39.0 Urinary tract infection, site not specified; E78.00 Pure hypercholesterolemia, unspecified; E11.9 Type 2 diabetes mellitus without complications; I10 Essential (primary) hypertension; G89.29 Other chronic pain; M54.9 Dorsalgia, unspecified; E03.9 Hypothyroidism, unspecified; Z79.890 Hormone replacement therapy; Z85.46 Personal history of malignant neoplasm of prostate; Z79.891 Long term (current) use of opiate analgesic; Z79.82 Long term (current) use of aspirin; Z79.4 Long term (current) use of insulin
CPT/HCPCS: 51702; 81000; 87077; 87088

== ENCOUNTER 2020-11-16 02:06 | Emergency (ER) | payer MEDICARE, OTHER ==
[~2020-11-16] VITALS: Ht 167.5 cm; Wt 70.7 kg
[~2020-11-16 02:06] MED LIST changes: -CIPR500T4 PO; +CIPR500T5 PO; -LISI10TA2 PO; +LISI10TA25 PO
[2020-11-16 02:13] VITALS: BP 187/103
--- NOTE | 2020-11-16 02:32 | ED GU-Male ---
General Chief Complaint: Catheter/Drain/Tube Problems Stated Complaint: CATHETER BLOCKED Source: patient Exam Limitations: no limitations History of Present Illness Date Seen by Provider: Nov 16, 2020 Time Seen by Provider: 02:15 Initial Comments Patient presents ER by private conveyance from home with chief complaint last 3 hours has been unable to get any urine out of his suprapubic catheter. He typically follows with urology at [place], [place]. His tried flushing it unsuccessfully. No fevers or chills. He just recently finished a course of Bactrim within the last 2 days. Allergies and Home Medications Allergies Coded Allergies: No Known Drug Allergies (Unverified , 10/13/20) Home Medications Aspirin 81 Mg Tablet.dr, 81 MG PO DAILY, (Reported) Atorvastatin Calcium 40 Mg Tablet, 40 MG PO DAILY, (Reported) Ciprofloxacin HCl 500 Mg Tablet, 500 MG PO BID Prescribed by: KISHAN NGUYEN on 07/29/20 1436 Furosemide 20 Mg Tablet, 20 MG PO DAILY, (Reported) Gabapentin 300 Mg Capsule, 300 MG PO TID, (Reported) Hydrocodone Bit/Acetaminophen 1 Each Tablet, 1 TAB PO Q6H PRN for PAIN, (Reported) Insulin NPH Hum/Reg Insulin Hm 100 Unit/1 Ml Vial, 35 UNIT SQ MORNING, (Repor nigel) Insulin NPH Hum/Reg Insulin Hm 100 Unit/1 Ml Vial, 30 UNIT SQ HS, (Reported) Levothyroxine Sodium 112 Mcg Tablet, 112 MCG PO DAILY, (Reported) Lisinopril 10 Mg Tablet, 5 MG PO DAILY, (Reported) Nitrofurantoin Monohyd/M-Cryst 100 Mg Capsule, 1 TAB PO BID Prescribed by: FRANCI SHARIF on 06/23/20 0102 Oxybutynin Chloride 5 Mg Tablet, 5 MG PO TID, (Reported) Potassium Chloride 20 Meq Tab.er.prt, 20 MEQ PO DAILY, (Reported) Rifampin 300 Mg Capsule, 300 MG PO BID, (Reported) Sulfamethoxazole/Trimethoprim 1 Each Tablet, 1 EACH PO BID Prescribed by: LAZARO SEAMAN on 06/08/20 0642 Sulfamethoxazole/Trimethoprim 1 Each Tablet, 1 EACH PO BID Prescribed by: KISHAN NGUYEN on 07/29/20 1445 Sulfamethoxazole/Trimethoprim 1 Each Tablet, 1 EACH PO BID Prescribed by: GARRETT TONEY on 08/13/20 0511 Sulfamethoxazole/Trimethoprim 1 Each Tablet, 1 EACH PO BID Prescribed by: GARRETT TONEY on 08/28/20 2305 Sulfamethoxazole/Trimethoprim 1 Each Tablet, 1 EACH PO BID Prescribed by: LAZARO SEAMAN on 10/14/20 0018 Vitamin B Complex 1 Each Tablet, 1 TAB PO DAILY, (Reported) Patient Home Medication List Home Medication List Reviewed: Yes Review of Systems Review of Systems Constitutional: No chills, No diaphoresis EENTM: No ear discharge, No hearing loss Respiratory: No short of breath Cardiovascular: No edema, No palpitations Musculoskeletal: No back pain, No joint pain All Other Systemes Reviewed Negative Unless Noted: Yes Past Tczbtkq-Cywqds-Ylixul Hx Patient Social History Alcohol Use: Denies Use Smoking Status: Never a Smoker 2nd Hand Smoke Exposure: No Recent Hopitalizations: Yes Immunizations Up To Date Tetanus Booster (TDap): Unknown Date of Pneumonia Vaccine: Sep 27, 2009 Date of Influenza Vaccine: Aug 05, 2020 Past Medical History Surgeries: Yes (MULTIPLE SKIN GRAFTS R LEG;SUPRAPUBIC CATH 2009;LYMPH NODE REM W/PROSTATE ) Abdominal, Amputation, Appendectomy, Bladder Surgery, Eye Surgery, Gallbladder, Orthopedic, Penile Implant, Prostatectomy Respiratory: Yes (POST OP MRSA PNEUMONIA/RESP FAILURE/VENTILATOR 2009) Cardiac: Yes High Cholesterol, Hypertension Neurological: No Reproductive Disorders: No Genitourinary: Yes (SUPRAPUBIC CATHETER SINCE 2009;PROSTATECTOMY/LYMPH NODE REMOVAL;PROSTATE CA) Prostate Problems, Renal Failure Gastrointestinal: Yes (S/P CHOLECYSTECTOMY; IBS-C) Gastroesophageal Reflux, Chronic Constipation, Pancreatitis, Gall Bladder Disease, Irritable Bowel Musculoskeletal: Yes (RIGHT TOE AMPUTATION;OSTEOMYELITIS R FOOT) Amputee, Arthritis, Chronic Back Pain Endocrine: Yes Diabetes, Insulin dep, Hypothyroidsim HEENT: No Cancer: Yes Prostate Did You Recieve Any Treatments: Yes What Type of Treatment Did You: Surgical Intervention Psychosocial: No Integumentary: Yes (CANNON WITH SKIN GRAFTS RIGHT LEG;OSTEOMYELITIS R FOOT;CHRONIC WOUNDS R FOOT) Blood Disorders: No Family Medical History No Pertinent Family Hx PSH: -EYE SURGERY -SKIN GRAFTS RIGHT LEG -RIGHT TOE AMPUTATION -PANCREAS SURGERY -PENILE IMPLANT -PROSTATECTOMY WITH LYMPH NODE REMOVAL -SUPRAPUBIC CATHETER 2009 -CHOLECYSTECTOMY -BRONCHOSCOPY 2009--POST OP RESP FAILURE/MRSA PNEUMONIA/VENTILATOR Physical Exam Vital Signs Vital Signs - First Documented 11/16/20 02:13 Temp 36.4 Pulse 109 Resp 22 B/P (MAP) 187/103 (131) Pulse Ox 96 O2 Delivery Room Air Capillary Refill : Height, Weight, BMI Height: 5'6.00" Weight: 170lbs. 0.0oz. 77.515687yw; 25.00 BMI Method:Stated General Appearance: WD/WN, no apparent distress HEENT: PERRL/EOMI, pharynx normal Cardiovascular: normal peripheral pulses, regular rate, rhythm Respiratory: no respiratory distress, no accessory muscle use Gastrointestinal: soft, tenderness (Suprapubic tenderness without significant erythema or discharge from the suprapubic site.) Neurologic/Psychiatric: alert, normal mood/affect, oriented x 3 Skin: normal color, warm/dry Procedures/Interventions Progress Cleaned the site with iodine and allowed to dry. Using typical sterile gloves and dressings. Suprapubic catheter decompressed and removed and immediately replaced with an 18 [place] 5 cc bulb catheter. Reinflated the bulb and got good urine return. Progress/Results/Core Measures Suspected Sepsis SIRS Temperature: Pulse: Respiratory Rate: Blood Pressure / Mean: Results/Orders Vital Signs/I&O 11/16/20 02:13 Temp 36.4 Pulse 109 Resp 22 B/P (MAP) 187/103 (131) Pulse Ox 96 O2 Delivery Room Air Capillary Refill : Progress Note : Time: 02:30 Progress Note Unable to successfully flush the catheter so we will replace Departure Impression Primary Impression: Complication, suprapubic catheter obstruction Qualified Codes: T83.090A - Other mechanical complication of cystostomy catheter, initial encounter Disposition: HOME, SELF-CARE Condition: Improved Departure-Patient Inst. Decision time for Depature: 02:27 Referrals: NO,LOCAL PHYSICIAN (PCP/Family) Primary Care Physician Patient Instructions: How to Care for Your [place] Catheter, Male Add. Discharge Instructions: Follow-up with your urologist as necessary. All discharge instructions reviewed with patient and/or family. Voiced understanding. Scripts Sulfamethoxazole/Trimethoprim (Bactrim Ds Tablet) 1 Each Tablet 1 EACH PO BID for 7 Days, #14 TAB 0 Refills Prov: GARRETT TONEY 11/16/20 GARRETT TONEY Nov 16, 2020 02:32
[2020-11-16] MEDS ORDERED: SULF1TAB35 PO (02:40)
== END 2020-11-16 02:34 | disposition home or self-care (01) ==
LOC: EDUNIT# 02:06 → ER 02:08
DX: T83.098A Other mechanical complication of other urinary catheter, initial encounter (principal); E11.9 Type 2 diabetes mellitus without complications; I10 Essential (primary) hypertension; E03.9 Hypothyroidism, unspecified; E78.00 Pure hypercholesterolemia, unspecified; G89.29 Other chronic pain; M54.9 Dorsalgia, unspecified; Z85.46 Personal history of malignant neoplasm of prostate; Z79.890 Hormone replacement therapy; Z79.4 Long term (current) use of insulin; Z79.82 Long term (current) use of aspirin; Z79.891 Long term (current) use of opiate analgesic
CPT/HCPCS: 51702

== ENCOUNTER 2020-12-15 01:04 | Emergency (ER) | payer MEDICARE, OTHER ==
[~2020-12-15] VITALS: Ht 167.5 cm; Wt 70.7 kg
--- NOTE | 2020-12-15 01:29 | ED GU-Male ---
General Chief Complaint: Catheter/Drain/Tube Problems Stated Complaint: BLOCKED CATHETER Source: patient History of Present Illness Date Seen by Provider: Dec 15, 2020 Time Seen by Provider: 01:19 Initial Comments PT ARRIVES VIA POV FROM HOME C/O BLOCKED SUPRAPUBIC CATHETER WENT TO BED AT 2200, WOKE UP AT 2300 WITH PAIN AND UNABLE TO FLUSH CATHETER THIS IS A FREQUENT PROBLEM--HAS BEEN HERE 1-2 TIMES A MONTH ON AVERAGE, SINCE 05/2020--THIS IS 9TH VISIT HERE. WAS SEEN 11/16/20 AND 10/13/20 FOR SAME. EACH TIME HAS THE CATHETER REMOVED AND REPLACED STATES HE SAW HIS UROLOGIST AT [facility] 2 WEEKS AGO AND HAD IT REPLACED NO FEVER HAS HAD SUPRAPUBIC CATHETER SINCE 2009 Allergies and Home Medications Allergies Coded Allergies: No Known Drug Allergies (Unverified , 10/13/20) Home Medications Aspirin 81 Mg Tablet.dr, 81 MG PO DAILY, (Reported) Atorvastatin Calcium 40 Mg Tablet, 40 MG PO DAILY, (Reported) Ciprofloxacin HCl 500 Mg Tablet, 500 MG PO BID Prescribed by: KISHAN NGUYEN on 07/29/20 1436 Furosemide 20 Mg Tablet, 20 MG PO DAILY, (Reported) Gabapentin 300 Mg Capsule, 300 MG PO TID, (Reported) Hydrocodone Bit/Acetaminophen 1 Each Tablet, 1 TAB PO Q6H PRN for PAIN, (Reported) Insulin NPH Hum/Reg Insulin Hm 100 Unit/1 Ml Vial, 35 UNIT SQ MORNING, (Reported) Insulin NPH Hum/Reg Insulin Hm 100 Unit/1 Ml Vial, 30 UNIT SQ HS, (Reported) Levothyroxine Sodium 112 Mcg Tablet, 112 MCG PO DAILY, (Reported) Lisinopril 10 Mg Tablet, 5 MG PO DAILY, (Reported) Nitrofurantoin Monohyd/M-Cryst 100 Mg Capsule, 1 TAB PO BID Prescribed by: FRANCI SHARIF on 06/23/20 0102 Oxybutynin Chloride 5 Mg Tablet, 5 MG PO TID, (Reported) Potassium Chloride 20 Meq Tab.er.prt, 20 MEQ PO DAILY, (Reported) Rifampin 300 Mg Capsule, 300 MG PO BID, (Reported) Sulfamethoxazole/Trimethoprim 1 Each Tablet, 1 EACH PO BID Prescribed by: LAZARO SEAMAN on 06/08/20 0642 Sulfamethoxazole/Trimethoprim 1 Each Tablet, 1 EACH PO BID Prescribed by: KISHAN NGUYEN on 07/29/20 1445 Sulfamethoxazole/Trimethoprim 1 Each Tablet, 1 EACH PO BID Prescribed by: GARRETT TONEY on 08/13/20 0511 Sulfamethoxazole/Trimethoprim 1 Each Tablet, 1 EACH PO BID Prescribed by: GARRETT TONEY on 08/28/20 2305 Sulfamethoxazole/Trimethoprim 1 Each Tablet, 1 EACH PO BID Prescribed by: LAZARO SEAMAN on 10/14/20 0018 Sulfamethoxazole/Trimethoprim 1 Each Tablet, 1 EACH PO BID Prescribed by: GARRETT TONEY on 11/16/20 0240 Sulfamethoxazole/Trimethoprim 1 Each Tablet, 1 EACH PO BID Prescribed by: FRANCI SHARIF on 12/15/20 0131 Vitamin B Complex 1 Each Tablet, 1 TAB PO DAILY, (Reported) Patient Home Medication List Home Medication List Reviewed: Yes Review of Systems Review of Systems Constitutional: no symptoms reported Genitourinary: see HPI Past Jnutgxy-Nwtobc-Pjsbbt Hx Past Med/Social Hx: Reviewed and Corrections made Patient Social History 2nd Hand Smoke Exposure: No Recent Hopitalizations: Yes Immunizations Up To Date Tetanus Booster (TDap): Unknown Date of Pneumonia Vaccine: Sep 27, 2009 Date of Influenza Vaccine: Aug 05, 2020 Past Medical History Surgeries: Yes (MULTIPLE SKIN GRAFTS R LEG;SUPRAPUBIC CATH 2009;LYMPH NODE REM W/PROSTATE ) Abdominal, Amputation, Appendectomy, Bladder Surgery, Eye Surgery, Gallbladder, Orthopedic, Penile Implant, Prostatectomy Respiratory: Yes (POST OP MRSA PNEUMONIA/RESP FAILURE/VENTILATOR 2009) Cardiac: Yes High Cholesterol, Hypertension Neurological: No Reproductive Disorders: No Genitourinary: Yes (SUPRAPUBIC CATHETER SINCE 2009;PROSTATECTOMY/LYMPH NODE REMOVAL;PROSTATE CA) Prostate Problems, Renal Failure Gastrointestinal: Yes (S/P CHOLECYSTECTOMY; IBS-C) Gastroesophageal Reflux, Chronic Constipation, Pancreatitis, Gall Bladder Disease, Irritable Bowel Musculoskeletal: Yes (RIGHT TOE AMPUTATION;OSTEOMYELITIS R FOOT) Amputee, Arthritis, Chronic Back Pain Endocrine: Yes Diabetes, Insulin dep, Hypothyroidsim HEENT: No Cancer: Yes Prostate Did You Recieve Any Treatments: Yes What Type of Treatment Did You: Surgical Intervention Psychosocial: No Integumentary: Yes (CANNON WITH SKIN GRAFTS RIGHT LEG;OSTEOMYELITIS R FOOT;CHRONIC WOUNDS R FOOT) Blood Disorders: No Family Medical History No Pertinent Family Hx PSH: -EYE SURGERY -SKIN GRAFTS RIGHT LEG -RIGHT TOE AMPUTATION -PANCREAS SURGERY -PENILE IMPLANT -PROSTATECTOMY WITH LYMPH NODE REMOVAL -SUPRAPUBIC CATHETER 2009 -CHOLECYSTECTOMY -BRONCHOSCOPY 2009--POST OP RESP FAILURE/MRSA PNEUMONIA/VENTILATOR Physical Exam Vital Signs Vital Signs - First Documented 12/15/20 01:17 Temp 36.8 Pulse 112 Resp 18 B/P (MAP) 174/102 (126) O2 Delivery Room Air Capillary Refill : Height, Weight, BMI Height: 5'6.00" Weight: 170lbs. 0.0oz. [id number]; 25.00 BMI Method:Stated General Appearance: WD/WN, no apparent distress Gastrointestinal: other (TENDERNESS TO LOWER ABDOMEN/SUPRAPUBIC AREA. BLADDER PALPABLE. CATH SITE DOES NOT APPEAR INFECTED. ) Genital/Rectal: other (SUPRAPUBIC CATHETER IN PLACE. UNABLE TO FLUSH. CATH SITE DOES NOT APPEAR INFECTED ) Progress/Results/Core Measures Suspected Sepsis SIRS Temperature: Pulse: Respiratory Rate: Blood Pressure / Mean: Results/Orders Lab Results Laboratory Tests Test 12/15/20 01:30 Range/Units Urine Color YELLOW Urine Clarity CLEAR Urine pH 6.5 5-9 Urine Specific [place] 1.020 1.016-1.022 Urine Protein 1+ H NEGATIVE Urine Glucose (UA) TRACE H NEGATIVE Urine Ketones NEGATIVE NEGATIVE Urine Nitrite NEGATIVE NEGATIVE Urine Bilirubin NEGATIVE NEGATIVE Urine Urobilinogen 1.0 < = 1.0 MG/DL Urine Leukocyte Esterase 2+ H NEGATIVE Urine RBC (Auto) 2+ H NEGATIVE Urine RBC 5-10 H /HPF Urine WBC 5-10 H /HPF Urine Squamous Epithelial Cells 2-5 /HPF Urine Crystals NONE /LPF Urine Bacteria LARGE H /HPF Urine Casts NONE /LPF Urine Mucus LARGE H /LPF Urine Culture Indicated YES My Orders Orders - FRANCI SHARIF DO Ua Culture If Indicated (12/15/20 01:28) Catheter(Urinary) Insert & Ass 03,15 (12/15/20 01:28) Urine Culture (12/15/20 01:30) Vital Signs/I&O 12/15/20 01:17 Temp 36.8 Pulse 112 Resp 18 B/P (MAP) 174/102 (126) O2 Delivery Room Air Capillary Refill : Progress Note : Progress Note SUPRAPUBIC CATHETER REMOVED AND REPLACED WITH IMMEDIATE RETURN OF LARGE AMOUNT OF URINE AND IMMEDIATE RELIEF OF SYMPTOMS Departure Impression Primary Impression: SUPRAPUBIC CATHETER REPLACEMENT Additional Impressions: Complication, suprapubic catheter obstruction Urinary tract infection Disposition: HOME, SELF-CARE Condition: Improved Departure-Patient Inst. Referrals: NO,LOCAL PHYSICIAN (PCP/Family) Primary Care Physician Patient Instructions: How to Care for Your Suprapubic Urinary Catheter, How to Prevent Catheter Associated Urinary Tract Infections, Urinary Tract Infection, Adult (DC) Add. Discharge Instructions: CONTINUE YOUR REGULAR MEDICATIONS PRESCRIBED FOLLOW UP WITH YOUR UROLOGIST NEXT WEEK FOR FURTHER CARE All discharge instructions reviewed with patient and/or family. Voiced understanding. Scripts Sulfamethoxazole/Trimethoprim (Bactrim Ds Tablet) 1 Each Tablet 1 EACH PO BID, #20 TAB Prov: FRANCI SHARIF DO 12/15/20 FRANCI SHARIF DO Dec 15, 2020 01:29
[2020-12-15] MEDS ORDERED: SULF1TAB35 PO (01:31)
[2020-12-15 01:38] LABS: BILIRUBIN,URINE NEGATIVE (NEGATIVE); CLARITY,URINE CLEAR; COLOR,URINE YELLOW; GLUCOSE, URINE (UA) TRACE (NEGATIVE); KETONES,URINE NEGATIVE (NEGATIVE); LEUKOCYTE ESTERASE ,URINE 2+ (NEGATIVE); NITRITE,URINE NEGATIVE (NEGATIVE); PH,URINE 6.5 (5-9); PROTEIN,URINE 1+ (NEGATIVE)
[2020-12-15 01:51] LABS: BACTERIA,URINE LARGE /HPF
[2020-12-15 02:02] VITALS: BP 125/71
== END 2020-12-15 02:04 | disposition home or self-care (01) ==
LOC: EDUNIT# 01:04 → ER 01:06
DX: T83.098A Other mechanical complication of other urinary catheter, initial encounter (principal); N39.0 Urinary tract infection, site not specified; E11.69 Type 2 diabetes mellitus with other specified complication; M86.9 Osteomyelitis, unspecified; I10 Essential (primary) hypertension; E78.00 Pure hypercholesterolemia, unspecified; E03.9 Hypothyroidism, unspecified; Z94.5 Skin transplant status; Z96.0 Presence of urogenital implants; Z86.79 Personal history of other diseases of the circulatory system; Z87.09 Personal history of other diseases of the respiratory system; Z85.46 Personal history of malignant neoplasm of prostate; Z89.421 Acquired absence of other right toe(s); Z79.82 Long term (current) use of aspirin; Z79.4 Long term (current) use of insulin; Z79.890 Hormone replacement therapy
CPT/HCPCS: 51702; 81000; 87077; 87088; 87186

== ENCOUNTER 2021-01-04 07:26 | Emergency (ER) | payer MEDICARE, OTHER ==
[~2021-01-04] VITALS: Ht 167 cm; Wt 70.7 kg
[2021-01-04 07:52] LABS: BILIRUBIN,URINE NEGATIVE (NEGATIVE); CLARITY,URINE CLEAR; COLOR,URINE YELLOW; GLUCOSE, URINE (UA) NEGATIVE (NEGATIVE); KETONES,URINE NEGATIVE (NEGATIVE); LEUKOCYTE ESTERASE ,URINE 3+ (NEGATIVE); NITRITE,URINE NEGATIVE (NEGATIVE); PROTEIN,URINE TRACE (NEGATIVE)
[2021-01-04 07:59] LABS: BACTERIA,URINE FEW /HPF; SQUAMOUS EPITHELIAL CELL,UR 0-2 /HPF
--- NOTE | 2021-01-04 08:11 | ED GU-Male ---
General Chief Complaint: Catheter/Drain/Tube Problems Stated Complaint: CATHETER ISSUES Nursing Triage Note: PT PRESENTS TO ED WITH COMPLAINTS OF SUPRAPUBIC CATH NOT DRAINING SINCE APROX 0300 THIS AM. Source: patient Exam Limitations: no limitations History of Present Illness Date Seen by Provider: Jan 04, 2021 Time Seen by Provider: 07:30 Initial Comments Here with report of catheter not working. Has long history of catheter failures and has been seen her previously for the same. States that about 3 AM he noticed that he had urine leakage around the catheter and has had very little urine within the bag since. Complains of lower abdominal fullness. Denies fever or chills. Denies nausea, vomiting or diarrhea. Follows up with urology in [place]. Timing/Duration: this morning, getting worse Severity/Quality: moderate, aching Location: suprapubic Radiation: none Associated Symptoms: abdominal pain; No fever/chills, No nausea/vomiting Allergies and Home Medications Allergies Coded Allergies: No Known Drug Allergies (Unverified , 10/13/20) Home Medications Aspirin 81 Mg Tablet.dr, 81 MG PO DAILY, (Reported) Atorvastatin Calcium 40 Mg Tablet, 40 MG PO DAILY, (Reported) Ciprofloxacin HCl 500 Mg Tablet, 500 MG PO BID Prescribed by: KISHAN NGUYEN on 07/29/20 1436 Furosemide 20 Mg Tablet, 20 MG PO DAILY, (Reported) Gabapentin 300 Mg Capsule, 300 MG PO TID, (Reported) Hydrocodone Bit/Acetaminophen 1 Each Tablet, 1 TAB PO Q6H PRN for PAIN, (Reported) Insulin NPH Hum/Reg Insulin Hm 100 Unit/1 Ml Vial, 35 UNIT SQ MORNING, (Reported) Insulin NPH Hum/Reg Insulin Hm 100 Unit/1 Ml Vial, 30 UNIT SQ HS, (Reported) Levothyroxine Sodium 112 Mcg Tablet, 112 MCG PO DAILY, (Reported) Lisinopril 10 Mg Tablet, 5 MG PO DAILY, (Reported) Nitrofurantoin Monohyd/M-Cryst 100 Mg Capsule, 1 TAB PO BID Prescribed by: FRANCI SHARIF on 06/23/20 010 Oxybutynin Chloride 5 Mg Tablet, 5 MG PO TID, (Reported) Potassium Chloride 20 Meq Tab.er.prt, 20 MEQ PO DAILY, (Reported) Rifampin 300 Mg Capsule, 300 MG PO BID, (Reported) Sulfamethoxazole/Trimethoprim 1 Each Tablet, 1 EACH PO BID Prescribed by: LAZARO SEAMAN on 06/08/20 0642 Sulfamethoxazole/Trimethoprim 1 Each Tablet, 1 EACH PO BID Prescribed by: KISHAN NGUYEN on 07/29/20 1445 Sulfamethoxazole/Trimethoprim 1 Each Tablet, 1 EACH PO BID Prescribed by: GARRETT TONEY on 08/13/20 0511 Sulfamethoxazole/Trimethoprim 1 Each Tablet, 1 EACH PO BID Prescribed by: GARRETT TONEY on 08/28/20 2305 Sulfamethoxazole/Trimethoprim 1 Each Tablet, 1 EACH PO BID Prescribed by: LAZARO SEAMAN on 10/14/20 0018 Sulfamethoxazole/Trimethoprim 1 Each Tablet, 1 EACH PO BID Prescribed by: GARRETT TONEY on 11/16/20 0240 Sulfamethoxazole/Trimethoprim 1 Each Tablet, 1 EACH PO BID Prescribed by: FRANCI SHARIF on 12/15/20 0131 Vitamin B Complex 1 Each Tablet, 1 TAB PO DAILY, (Reported) Patient Home Medication List Home Medication List Reviewed: Yes Review of Systems Review of Systems Constitutional: see HPI; No chills, No fever Respiratory: No cough, No short of breath Cardiovascular: no symptoms reported Gastrointestinal: No nausea, No vomiting Genitourinary: see HPI Musculoskeletal: no symptoms reported Skin: no symptoms reported Past Exnhpko-Bihiiu-Krtxtu Hx Past Med/Social Hx: Reviewed Nursing Past Med/Soc Hx Patient Social History Alcohol Use: Denies Use Smoking Status: Former Smoker Former Smoker, Quit: Jan 06, 1972 2nd Hand Smoke Exposure: No Recent Infectious Disease Expo: No Recent Hopitalizations: Yes Immunizations Up To Date Tetanus Booster (TDap): Unknown Date of Pneumonia Vaccine: Sep 27, 2009 Date of Influenza Vaccine: Aug 05, 2020 Past Medical History Surgeries: Yes (MULTIPLE SKIN GRAFTS R LEG;SUPRAPUBIC CATH 2009;LYMPH NODE REM W/PROSTATE ) Abdominal, Amputation, Appendectomy, Bladder Surgery, Eye Surgery, Gallbladder, Orthopedic, Penile Implant, Prostatectomy Respiratory: Yes (POST OP MRSA PNEUMONIA/RESP FAILURE/VENTILATOR 2009) Cardiac: Yes High Cholesterol, Hypertension Neurological: No Reproductive Disorders: No Genitourinary: Yes (SUPRAPUBIC CATHETER SINCE 2009;PROSTATECTOMY/LYMPH NODE REMOVAL;PROSTATE CA) Prostate Problems, Renal Failure Gastrointestinal: Yes (S/P CHOLECYSTECTOMY; IBS-C) Gastroesophageal Reflux, Chronic Constipation, Pancreatitis, Gall Bladder Disease, Irritable Bowel Musculoskeletal: Yes (RIGHT TOE AMPUTATION;OSTEOMYELITIS R FOOT) Amputee, Arthritis, Chronic Back Pain Endocrine: Yes Diabetes, Insulin dep, Hypothyroidsim HEENT: No Cancer: Yes Prostate Did You Recieve Any Treatments: Yes What Type of Treatment Did You: Surgical Intervention Psychosocial: No Integumentary: Yes (CANNON WITH SKIN GRAFTS RIGHT LEG;OSTEOMYELITIS R FOOT;CHRONIC WOUNDS R FOOT) Blood Disorders: No Family Medical History Reviewed Nursing Family Hx No Pertinent Family Hx PSH: -EYE SURGERY -SKIN GRAFTS RIGHT LEG -RIGHT TOE AMPUTATION -PANCREAS SURGERY -PENILE IMPLANT -PROSTATECTOMY WITH LYMPH NODE REMOVAL -SUPRAPUBIC CATHETER 2009 -CHOLECYSTECTOMY -BRONCHOSCOPY 2009--POST OP RESP FAILURE/MRSA PNEUMONIA/VENTILATOR Physical Exam Vital Signs Vital Signs - First Documented 01/04/21 07:32 Temp 36.2 Pulse 96 Resp 18 B/P (MAP) 155/99 (117) Pulse Ox 97 Capillary Refill : Less Than 3 Seconds Height, Weight, BMI Height: 5'6.00" Weight: 170lbs. 0.0oz. 77.981763iz; 25.00 BMI Method:Stated General Appearance: WD/WN, no apparent distress Cardiovascular: regular rate, rhythm, no murmur Respiratory: lungs clear, normal breath sounds Gastrointestinal: soft, tenderness (Suprapubic with suprapubic catheter in place and urine leakage.) Neurologic/Psychiatric: alert, oriented x 3 Skin: normal color, warm/dry Progress/Results/Core Measures Suspected Sepsis Recent Fever Within 48 Hours: No Infection Criteria Present: None New/Unexplained Altered Menta: No Sepsis Screen: No Definite Risk SIRS Temperature: Pulse: 96 Respiratory Rate: 18 Blood Pressure 155 /99 Mean: 117 Results/Orders Lab Results Laboratory Tests Test 01/04/21 07:45 Range/Units Urine Color YELLOW Urine Clarity CLEAR Urine pH 6.0 5-9 Urine Specific [place] 1.020 1.016-1.022 Urine Protein TRACE H NEGATIVE Urine Glucose (UA) NEGATIVE NEGATIVE Urine Ketones NEGATIVE NEGATIVE Urine Nitrite NEGATIVE NEGATIVE Urine Bilirubin NEGATIVE NEGATIVE Urine Urobilinogen 1.0 < = 1.0 MG/DL Urine Leukocyte Esterase 3+ H NEGATIVE Urine RBC (Auto) 1+ H NEGATIVE Urine RBC 2-5 H /HPF Urine WBC 10-25 H /HPF Urine Squamous Epithelial Cells 0-2 /HPF Urine Crystals NONE /LPF Urine Bacteria FEW H /HPF Urine Casts NONE /LPF Urine Mucus NEGATIVE /LPF Urine Culture Indicated YES My Orders Orders - LAZARO SEAMAN MD Ua Culture If Indicated (01/04/21 07:41) Catheter(Urinary) Insert & Ass 03,15 (01/04/21 07:41) Urine Culture (01/04/21 07:45) Vital Signs/I&O 01/04/21 07:32 Temp 36.2 Pulse 96 Resp 18 B/P (MAP) 155/99 (117) Pulse Ox 97 Capillary Refill : Less Than 3 Seconds Blood Pressure Mean: 117 Progress Note : Progress Note Seen and evaluated. Patient is known to me. We will go ahead and replace catheter and get UA. Monitor patient. 0820: Much better after Navarrete replacement. UA is concerning and we will go ahead and initiate nitrofurantoin. Discharged home with return precautions. Patient verbalized understanding of instructions and agreement with plan. Departure Impression Primary Impression: SUPRAPUBIC CATHETER REPLACEMENT Additional Impression: Urinary tract infection Qualified Codes: N30.00 - Acute cystitis without hematuria Disposition: HOME, SELF-CARE Condition: Improved Departure-Patient Inst. Decision time for Depature: 08:21 Referrals: NO,LOCAL PHYSICIAN (PCP/Family) Primary Care Physician Patient Instructions: How to Care for Your Navarrete Catheter, Male, Urinary Tract Infection, Adult (DC) Add. Discharge Instructions: All discharge instructions reviewed with patient and/or family. Voiced understanding. Take medications as directed. Follow-up with your doctor in a few days for recheck. Return for worse pain, fever, vomiting, weakness, breathing problems or other concerns as needed. Scripts Nitrofurantoin Macrocrystal (Nitrofurantoin) 100 Mg Capsule 100 MG PO BID, #10 CAP 0 Refills Prov: LAZARO SEAMAN MD 01/04/21 LAZARO SEAMAN MD Jan 04, 2021 08:11
[2021-01-04] MEDS ORDERED: NITR100C PO (08:23)
[2021-01-04 08:27] VITALS: BP 140/90
== END 2021-01-04 08:27 | disposition home or self-care (01) ==
LOC: EDUNIT# 07:26 → ER 07:27
DX: T83.198A Other mechanical complication of other urinary devices and implants, initial encounter (principal); N39.0 Urinary tract infection, site not specified; I10 Essential (primary) hypertension; E03.9 Hypothyroidism, unspecified; E78.00 Pure hypercholesterolemia, unspecified; E11.9 Type 2 diabetes mellitus without complications; G89.29 Other chronic pain; M54.9 Dorsalgia, unspecified; Z85.46 Personal history of malignant neoplasm of prostate; Z87.891 Personal history of nicotine dependence; Z79.890 Hormone replacement therapy; Z79.82 Long term (current) use of aspirin; Z79.4 Long term (current) use of insulin; Z79.891 Long term (current) use of opiate analgesic
CPT/HCPCS: 51702; 81000; 87077; 87088; 87186

== ENCOUNTER 2021-01-31 22:51 | Emergency (ER) | payer MEDICARE, OTHER ==
[~2021-01-31] VITALS: Ht 167 cm; Wt 70.7 kg
[~2021-01-31 22:51] MED LIST changes: +NITR100C PO
--- NOTE | 2021-01-31 23:09 | ED GU-Male ---
General Chief Complaint: Catheter/Drain/Tube Problems Stated Complaint: SUPRAPUBIC BLOCKED Nursing Triage Note: c/o decreased urine flow from suprapubic catheter x3-4 days. Source: patient Exam Limitations: no limitations History of Present Illness Date Seen by Provider: January 31, 2021 Time Seen by Provider: 23:00 Initial Comments Patient is a 75-year-old male who presents to the emergency department today with a chief complaint of a blocked suprapubic catheter. Patient states that he has had problems over the course of the last 3 days with intermittent blockages to his catheter. Patient tells me that he was diagnosed with he believes an infection about 3 weeks ago and told that he needed IV antibiotics. Patient states that he is not quite made it to his urologist or his primary care physician to get that accomplished yet. He sees Dr. Howell in [place] and also urologist in [place]. Patient states that he has an appointment with his urol ogist next Wednesday. Patient denies any recent fevers, chills. No other complaints of illness in recent days. Patient tells me it has been about 3 weeks since his suprapubic catheter has been changed out. He states normally it only lasts about 2 weeks at a time. All other review of systems reviewed and negative except as stated above. Timing/Duration: week Severity/Quality: severe, aching, cramping Location: suprapubic Radiation: suprapubic Prior Genitourinary Problems: similar symptoms Allergies and Home Medications Allergies Coded Allergies: No Known Drug Allergies (Unverified , 10/13/20) Home Medications Aspirin 81 Mg Tablet., 81 MG PO DAILY, (Reported) Atorvastatin Calcium 40 Mg Tablet, 40 MG PO DAILY, (Reported) Ciprofloxacin HCl 500 Mg Tablet, 500 MG PO BID Prescribed by: KISHAN NGUYEN on 07/29/20 1436 Furosemide 20 Mg Tablet, 20 MG PO DAILY, (Reported) Gabapentin 300 Mg Capsule, 300 MG PO TID, (Reported) Hydrocodone Bit/Acetaminophen 1 Each Tablet, 1 TAB PO Q6H PRN for PAIN, (Reported) Insulin NPH Hum/Reg Insulin Hm 100 Unit/1 Ml Vial, 35 UNIT SQ MORNING, (Reported) Insulin NPH Hum/Reg Insulin Hm 100 Unit/1 Ml Vial, 30 UNIT SQ HS, (Reported) Levothyroxine Sodium 112 Mcg Tablet, 112 MCG PO DAILY, (Reported) Lisinopril 10 Mg Tablet, 5 MG PO DAILY, (Reported) Nitrofurantoin Macrocrystal 100 Mg Capsule, 100 MG PO BID Prescribed by: LAZARO SEAMAN on 01/04/21 0823 Nitrofurantoin Monohyd/M-Cryst 100 Mg Capsule, 1 TAB PO BID Prescribed by: FRANCI SHARIF on 06/23/20 0102 Oxybutynin Chloride 5 Mg Tablet, 5 MG PO TID, (Reported) Potassium Chloride 20 Meq Tab.er.prt, 20 MEQ PO DAILY, (Reported) Rifampin 300 Mg Capsule, 300 MG PO BID, (Reported) Sulfamethoxazole/Trimethoprim 1 Each Tablet, 1 EACH PO BID Prescribed by: LAZARO SEAMAN on 06/08/20 0642 Sulfamethoxazole/Trimethoprim 1 Each Tablet, 1 EACH PO BID Prescribed by: KISHAN NGUYEN on 07/29/20 1445 Sulfamethoxazole/Trimethoprim 1 Each Tablet, 1 EACH PO BID Prescribed by: GARRETT TONEY on 08/13/20 0511 Sulfamethoxazole/Trimethoprim 1 Each Tablet, 1 EACH PO BID Prescribed by: GARRETT TONEY on 08/28/20 2305 Sulfamethoxazole/Trimethoprim 1 Each Tablet, 1 EACH PO BID Prescribed by: LAZARO SEAMAN on 10/14/20 0018 Sulfamethoxazole/Trimethoprim 1 Each Tablet, 1 EACH PO BID Prescribed by: GARRETT TONEY on 11/16/20 0240 Sulfamethoxazole/Trimethoprim 1 Each Tablet, 1 EACH PO BID Prescribed by: FRANCI SHARIF on 12/15/20 0131 Vitamin B Complex 1 Each Tablet, 1 TAB PO DAILY, (Reported) Patient Home Medication List Home Medication List Reviewed: Yes Review of Systems Review of Systems Constitutional: see HPI EENTM: no symptoms reported Respiratory: no symptoms reported Cardiovascular: no symptoms reported Gastrointestinal: abdominal pain Musculoskeletal: no symptoms reported Skin: no symptoms reported All Other Systemes Reviewed Negative Unless Noted: Yes Past Vgsidxp-Hxfvyv-Lxrcwq Hx Patient Social History Alcohol Use: Denies Use Smoking Status: Former Smoker Former Smoker, Quit: Jan 06, 1972 2nd Hand Smoke Exposure: No Recent Infectious Disease Expo: No Recent Hopitalizations: No Immunizations Up To Date Tetanus Booster (TDap): Unknown Date of Pneumonia Vaccine: Sep 27, 2009 Date of Influenza Vaccine: Aug 05, 2020 Seasonal Allergies Seasonal Allergies: No Past Medical History Surgeries: Yes (MULTIPLE SKIN GRAFTS R LEG;SUPRAPUBIC CATH 2009;LYMPH NODE REM W/PROSTATE ) Abdominal, Amputation, Appendectomy, Bladder Surgery, Eye Surgery, Gallbladder, Orthopedic, Penile Implant, Prostatectomy Respiratory: Yes (POST OP MRSA PNEUMONIA/RESP FAILURE/VENTILATOR 2009) Cardiac: Yes High Cholesterol, Hypertension Neurological: No Reproductive Disorders: No Genitourinary: Yes (SUPRAPUBIC CATHETER SINCE 2009;PROSTATECTOMY/LYMPH NODE REMOVAL;PROSTATE CA) Prostate Problems, Renal Failure Gastrointestinal: Yes (S/P CHOLECYSTECTOMY; IBS-C) Gastroesophageal Reflux, Chronic Constipation, Pancreatitis, Gall Bladder Disease, Irritable Bowel Musculoskeletal: Yes (RIGHT TOE AMPUTATION;OSTEOMYELITIS R FOOT) Amputee, Arthritis, Chronic Back Pain Endocrine: Yes Diabetes, Insulin dep, Hypothyroidsim HEENT: No Cancer: Yes Prostate Did You Recieve Any Treatments: Yes What Type of Treatment Did You: Surgical Intervention Psychosocial: No Integumentary: Yes (CANNON WITH SKIN GRAFTS RIGHT LEG;OSTEOMYELITIS R FOOT;CHRONIC WOUNDS R FOOT) Blood Disorders: No Family Medical History No Pertinent Family Hx PSH: -EYE SURGERY -SKIN GRAFTS RIGHT LEG -RIGHT TOE AMPUTATION -PANCREAS SURGERY -PENILE IMPLANT -PROSTATECTOMY WITH LYMPH NODE REMOVAL -SUPRAPUBIC CATHETER 2009 -CHOLECYSTECTOMY -BRONCHOSCOPY 2009--POST OP RESP FAILURE/MRSA PNEUMONIA/VENTILATOR Physical Exam Vital Signs Vital Signs - First Documented 01/31/21 22:55 Temp 36.4 Pulse 99 Resp 20 B/P (MAP) 147/125 (132) Pulse Ox 95 O2 Delivery Room Air Capillary Refill : Less Than 3 Seconds Height, Weight, BMI Height: 5'6.00" Weight: 170lbs. 0.0oz. 77.251080vu; 25.00 BMI Method:Stated General Appearance: WD/WN, no apparent distress Neck: normal inspection Cardiovascular: regular rate, rhythm Respiratory: lungs clear, normal breath sounds, no respiratory distress, no accessory muscle use Gastrointestinal: distended, tenderness Neurologic/Psychiatric: alert, normal mood/affect, oriented x 3 Skin: normal color, warm/dry Progress/Results/Core Measures Suspected Sepsis Recent Fever Within 48 Hours: No Infection Criteria Present: None New/Unexplained Altered Menta: No Sepsis Screen: No Definite Risk SIRS Temperature: Pulse: 99 Respiratory Rate: 20 Blood Pressure 147 /125 Mean: 132 Results/Orders Lab Results Laboratory Tests Test 01/31/21 23:10 Range/Units Urine Color YELLOW Urine Clarity CLEAR Urine pH 6.0 5-9 Urine Specific Hawkins 1.020 1.016-1.022 Urine Protein 1+ H NEGATIVE Urine Glucose (UA) NEGATIVE NEGATIVE Urine Ketones NEGATIVE NEGATIVE Urine Nitrite NEGATIVE NEGATIVE Urine Bilirubin NEGATIVE NEGATIVE Urine Urobilinogen 2.0 < = 1.0 MG/DL Urine Leukocyte Esterase 2+ H NEGATIVE Urine RBC (Auto) 2+ H NEGATIVE Urine RBC 5-10 H /HPF Urine WBC 10-25 H /HPF Urine Crystals PRESENT H /LPF Urine Amorphous Sediment FEW ZAIRA URATES H /LPF Urine Bacteria LARGE H /HPF Urine Casts NONE /LPF Urine Mucus NEGATIVE /LPF Urine Culture Indicated YES My Orders Orders - KISHAN NGUYEN MD Ua Culture If Indicated (01/31/21 23:05) Urine Culture (01/31/21 23:10) Vital Signs/I&O 01/31/21 22:55 Temp 36.4 Pulse 99 Resp 20 B/P (MAP) 147/125 (132) Pulse Ox 95 O2 Delivery Room Air Capillary Refill : Less Than 3 Seconds Blood Pressure Mean: 132 Progress Note : Time: 23:56 Progress Note Patient seen and examined, 75-year-old male with a chief complaint of suprapubic catheter blockage. Patient has had multiple visits to the emergency department for similar complaints. He is also had multiple episodes of urinary tract infection. These infections seem to be polymicrobial. He has been on Bactrim, Macrobid as well as other antibiotics. He had a most recent urine culture from January 04 which showed Pseudomonas, staph aureus MRSA and multiple other species. It does not appear that any single agent will be satisfactory to treat these bacteria. The patient has no systemic signs of infection. He denies fevers, chills, malaise, nausea vomiting etc. For this visit I am going to hold off giving him antibiotics as he has an appointment with his urologist next Wednesday. I am going to send him home with a copy of his most recent culture results. I have instructed him to talk to his urologist about his urine cultures. He verbalizes understanding and is comfortable with this plan of care. I have cautioned him that if he develops any of the after mentioned symptoms that he should return to the emergency room for reevaluation. He again is comfortable with this. All questions are sought and answered. Patient is stable for discharge. Departure Impression Primary Impression: Blocked suprapubic catheter Qualified Codes: T83.090A - Other mechanical complication of cystostomy catheter, initial encounter Additional Impression: Bacteriuria, asymptomatic Disposition: HOME, SELF-CARE Condition: Stable Departure-Patient Inst. Decision time for Depature: 23:59 Referrals: NO,LOCAL PHYSICIAN (PCP/Family) Primary Care Physician Patient Instructions: Asymptomatic Bacteriuria Add. Discharge Instructions: Drink plenty of fluids to stay well-hydrated. Please take the culture results I have provided to you to your urology appointment next Wednesday, February 05. Come back to the emergency room if you have any fever, weakness, nausea, vomiting or any other emergent concerning symptoms. KISHAN NGUYEN MD January 31, 2021 23:09
[2021-01-31 23:29] LABS: BILIRUBIN,URINE NEGATIVE (NEGATIVE); CLARITY,URINE CLEAR; COLOR,URINE YELLOW; GLUCOSE, URINE (UA) NEGATIVE (NEGATIVE); KETONES,URINE NEGATIVE (NEGATIVE); LEUKOCYTE ESTERASE ,URINE 2+ (NEGATIVE); NITRITE,URINE NEGATIVE (NEGATIVE); PROTEIN,URINE 1+ (NEGATIVE)
[2021-01-31 23:34] LABS: AMORPHOUS SEDIMENT,UR FEW AMOR URATES /LPF; BACTERIA,URINE LARGE /HPF
[2021-02-01 00:03] VITALS: BP 156/84
== END 2021-02-01 00:04 | disposition home or self-care (01) ==
LOC: EDUNIT# 22:51 → ER 22:52
DX: T83.198A Other mechanical complication of other urinary devices and implants, initial encounter (principal); R82.71 Bacteriuria; I10 Essential (primary) hypertension; E78.00 Pure hypercholesterolemia, unspecified; E11.9 Type 2 diabetes mellitus without complications; E03.9 Hypothyroidism, unspecified; G89.29 Other chronic pain; M54.9 Dorsalgia, unspecified; Z79.890 Hormone replacement therapy; Z87.891 Personal history of nicotine dependence; Z79.82 Long term (current) use of aspirin; Z79.4 Long term (current) use of insulin; Z79.899 Other long term (current) drug therapy; Z79.891 Long term (current) use of opiate analgesic
CPT/HCPCS: 51702; 81000; 87077; 87088; 87186

== ENCOUNTER → 2022-02-24 | Outpatient (RCR) | payer MEDICARE, OTHER ==
[2022-02-12 15:27] LABS: HEMATOCRIT 37 % (40-54); HEMOGLOBIN 12.9 g/dL (13.3-17.7); MEAN CORPUSCULAR HEMOGLOBIN 33 pg (25-34); MEAN CORPUSCULAR HGB CONC 35 g/dL (32-36); MEAN CORPUSCULAR VOLUME 96 fL (80-99); MEAN PLATELET VOLUME 9.2 fL (9.0-12.2); PLATELET COUNT 150 10^3/uL (130-400); WHITE BLOOD COUNT 6.4 10^3/uL (4.3-11.0)
[2022-02-12 15:46] LABS: ERYTHROCYTE SEDIMENTATION RATE 16 MM/HR (0-30)
[2022-02-12] MEDS: cefTRIAXone 2,000 MG/NS 50 ML IVPB IV SCH ×2 (15:50)
[2022-02-12 15:51] LABS: ALBUMIN 3.3 GM/DL (3.2-4.5); BILIRUBIN,TOTAL 1.4 MG/DL (0.1-1.0); CALCIUM 8.9 MG/DL (8.5-10.1); CREATININE SERUM 1.02 MG/DL (0.60-1.30); POTASSIUM 4.5 MMOL/L (3.6-5.0); TOTAL PROTEIN 6.6 GM/DL (6.4-8.2)
[2022-02-12 16:19] VITALS: BP 145/79
[2022-02-13 09:15] VITALS: BP 131/73
[2022-02-13] MEDS: cefTRIAXone 2,000 MG/NS 50 ML IVPB IV SCH ×2 (09:26)
[2022-02-13] MEDS: VANCOMYCIN 1250 MG/NS 250 ML IVPB IV SCH ×2 (09:58)
[2022-02-14] MEDS: cefTRIAXone 2,000 MG/NS 50 ML IVPB IV SCH ×2 (09:20)
[2022-02-14] MEDS: VANCOMYCIN 1250 MG/NS 250 ML IVPB IV SCH ×2 (09:50)
[2022-02-14 11:05] VITALS: BP 132/77
[2022-02-15] MEDS: cefTRIAXone 2,000 MG/NS 50 ML IVPB IV SCH ×2 (09:13)
[2022-02-15 09:36] VITALS: BP 138/75
[2022-02-15] MEDS: VANCOMYCIN 1250 MG/NS 250 ML IVPB IV SCH ×2 (09:50)
[2022-02-16] MEDS: cefTRIAXone 2,000 MG/NS 50 ML IVPB IV SCH ×2 (09:29)
[2022-02-16 09:40] LABS: HEMATOCRIT 40 % (40-54); HEMOGLOBIN 13.4 g/dL (13.3-17.7); MEAN CORPUSCULAR HEMOGLOBIN 33 pg (25-34); MEAN CORPUSCULAR HGB CONC 34 g/dL (32-36); MEAN CORPUSCULAR VOLUME 97 fL (80-99); MEAN PLATELET VOLUME 9.5 fL (9.0-12.2); PLATELET COUNT 152 10^3/uL (130-400); WHITE BLOOD COUNT 8.4 10^3/uL (4.3-11.0)
[2022-02-16 10:00] LABS: ERYTHROCYTE SEDIMENTATION RATE 17 MM/HR (0-30)
[2022-02-16] MEDS: VANCOMYCIN 1250 MG/NS 250 ML IVPB IV SCH ×2 (10:00)
[2022-02-16 10:11] LABS: ALBUMIN 3.4 GM/DL (3.2-4.5); BILIRUBIN,TOTAL 1.2 MG/DL (0.1-1.0); CALCIUM 8.9 MG/DL (8.5-10.1); CREATININE SERUM 0.85 MG/DL (0.60-1.30); TOTAL PROTEIN 6.7 GM/DL (6.4-8.2)
[2022-02-16 11:03] VITALS: BP 131/76
[2022-02-17] MEDS: cefTRIAXone 2,000 MG/NS 50 ML IVPB IV SCH ×2 (09:03)
[2022-02-17] MEDS: VANCOMYCIN 1250 MG/NS 250 ML IVPB IV SCH ×2 (09:28)
[2022-02-17 10:02] VITALS: BP 134/63
[2022-02-18 09:15] VITALS: BP 130/92
[2022-02-18] MEDS: cefTRIAXone 2,000 MG/NS 50 ML IVPB IV SCH ×2 (09:37)
[2022-02-18] MEDS: VANCOMYCIN 1250 MG/NS 250 ML IVPB IV SCH ×2 (10:08)
[2022-02-19 09:20] VITALS: BP 153/73
[2022-02-19] MEDS: cefTRIAXone 2,000 MG/NS 50 ML IVPB IV SCH ×2 (09:46)
[2022-02-19] MEDS: VANCOMYCIN 1250 MG/NS 250 ML IVPB IV SCH ×2 (10:17)
[2022-02-20 09:30] VITALS: BP 117/82
[2022-02-20] MEDS: VANCOMYCIN 1250 MG/NS 250 ML IVPB IV SCH ×2 (10:01)
[2022-02-20] MEDS: cefTRIAXone 2,000 MG/NS 50 ML IVPB IV SCH ×2 (11:18)
[2022-02-21] MEDS: VANCOMYCIN 1250 MG/NS 250 ML IVPB IV SCH ×2 (09:12)
[2022-02-21] MEDS: cefTRIAXone 2,000 MG/NS 50 ML IVPB IV SCH ×2 (10:29)
[2022-02-21 10:35] VITALS: BP 128/69
[2022-02-22] MEDS: cefTRIAXone 2,000 MG/NS 50 ML IVPB IV SCH ×2 (08:59)
[2022-02-22] MEDS: VANCOMYCIN 1250 MG/NS 250 ML IVPB IV SCH ×2 (09:26)
[2022-02-22 09:31] VITALS: BP 122/60
[2022-02-23 09:19] LABS: BASOPHILS % (AUTO) 1 % (0-10); EOSINOPHILS # (AUTO) 0.2 10^3/uL (0.0-0.3); EOSINOPHILS % (AUTO) 2 % (0-10); HEMATOCRIT 40 % (40-54); HEMOGLOBIN 13.5 g/dL (13.3-17.7); LYMPHOCYTES # (AUTO) 0.5 10^3/uL (1.0-4.0); LYMPHOCYTES % (AUTO) 6 % (12-44); MEAN CORPUSCULAR HEMOGLOBIN 33 pg (25-34); MEAN CORPUSCULAR HGB CONC 34 g/dL (32-36); MEAN CORPUSCULAR VOLUME 97 fL (80-99); MEAN PLATELET VOLUME 9.4 fL (9.0-12.2); MONOCYTES # (AUTO) 0.9 10^3/uL (0.0-1.0); MONOCYTES % (AUTO) 11 % (0-12); NEUTROPHILS # (AUTO) 6.2 10^3/uL (1.8-7.8); NEUTROPHILS % (AUTO) 79 % (42-75); PLATELET COUNT 141 10^3/uL (130-400); WHITE BLOOD COUNT 7.8 10^3/uL (4.3-11.0)
[2022-02-23] MEDS: cefTRIAXone 2,000 MG/NS 50 ML IVPB IV SCH ×2 (09:20)
[2022-02-23 09:26] LABS: ALBUMIN 3.5 GM/DL (3.2-4.5)
[2022-02-23 09:27] LABS: POTASSIUM 4.4 MMOL/L (3.6-5.0)
[2022-02-23 09:28] LABS: CALCIUM 9.3 MG/DL (8.5-10.1)
[2022-02-23 09:29] LABS: TOTAL PROTEIN 6.9 GM/DL (6.4-8.2)
[2022-02-23 09:31] LABS: BILIRUBIN,TOTAL 1.4 MG/DL (0.1-1.0)
[2022-02-23 09:33] LABS: CREATININE SERUM 1.1 MG/DL (0.60-1.30)
[2022-02-23 10:17] LABS: ERYTHROCYTE SEDIMENTATION RATE 21 MM/HR (0-30)
[2022-02-23] MEDS: VANCOMYCIN 1250 MG/NS 250 ML IVPB IV SCH ×2 (10:21)
[2022-02-23 10:36] VITALS: BP 142/82
[~2022-02-24] VITALS: Ht 167.7 cm
[~2022-02-24] MED LIST changes: +POTA-169 PO; -POTA20TA8 PO; -RIFA300C3 PO; +RIFA300C8 PO; -SULF1TAB35 PO; +SULF1TAB38 PO; +TROUGH ORDER-PHARMACY XX ONE; +VANCOMYCIN 1500 MG/NS 500 ML IVPB IV NR
[2022-02-24] MEDS: cefTRIAXone 2,000 MG/NS 50 ML IVPB IV SCH ×2 (09:25)
[2022-02-24 09:43] VITALS: BP 120/74
[2022-02-24] MEDS: VANCOMYCIN 1250 MG/NS 250 ML IVPB IV SCH ×2 (09:53)
== END | disposition home or self-care (01) ==
LOC: SDC 02-12 14:10 → EDSTATUS 02-13 09:15 → SDC 02-14 09:02
PROVIDERS: ATTEND Internal Medicine Infectious Disease
DX: A49.8 Other bacterial infections of unspecified site (principal); A49.1 Streptococcal infection, unspecified site; M86.9 Osteomyelitis, unspecified; Z91.89 Other specified personal risk factors, not elsewhere classified
CPT/HCPCS: 36569; 76937; 80053; 85027; 85652; 86141; 96365 ×2; 96366 ×2; C1751; 36415; 80202; 85025; 96367; 99211

== ENCOUNTER → 2022-03-26 | Outpatient (RCR) | payer MEDICARE, OTHER ==
[2022-02-25 08:26] VITALS: BP 135/76
[2022-02-25 12:42] VITALS: BP 135/76
[2022-02-26 09:36] VITALS: BP 136/77
[2022-02-26] MEDS: cefTRIAXone 2,000 MG/NS 50 ML IVPB IV SCH ×2 (09:36)
[2022-02-26] MEDS: VANCOMYCIN 1250 MG/NS 250 ML IVPB IV SCH ×2 (10:03)
[2022-02-26 11:21] VITALS: BP 136/77
[2022-02-27 09:15] VITALS: BP 142/72
[2022-02-27] MEDS: VANCOMYCIN 1250 MG/NS 250 ML IVPB IV SCH ×2 (09:30)
[2022-02-27] MEDS: cefTRIAXone 2,000 MG/NS 50 ML IVPB IV SCH ×2 (10:40)
[2022-02-28 09:05] VITALS: BP 121/67
[2022-02-28] MEDS: cefTRIAXone 2,000 MG/NS 50 ML IVPB IV SCH ×2 (09:07)
[2022-02-28] MEDS: VANCOMYCIN 1250 MG/NS 250 ML IVPB IV SCH ×2 (09:35)
[2022-03-01 09:00] VITALS: BP 130/57
[2022-03-01] MEDS: cefTRIAXone 2,000 MG/NS 50 ML IVPB IV SCH ×2 (09:07)
[2022-03-01] MEDS: VANCOMYCIN 1250 MG/NS 250 ML IVPB IV SCH ×2 (09:37)
[2022-03-02 09:42] LABS: BASOPHILS % (AUTO) 1 % (0-10); EOSINOPHILS # (AUTO) 0.3 10^3/uL (0.0-0.3); EOSINOPHILS % (AUTO) 5 % (0-10); HEMATOCRIT 38 % (40-54); HEMOGLOBIN 12.9 g/dL (13.3-17.7); LYMPHOCYTES # (AUTO) 0.4 10^3/uL (1.0-4.0); LYMPHOCYTES % (AUTO) 7 % (12-44); MEAN CORPUSCULAR HEMOGLOBIN 33 pg (25-34); MEAN CORPUSCULAR HGB CONC 34 g/dL (32-36); MEAN CORPUSCULAR VOLUME 99 fL (80-99); MEAN PLATELET VOLUME 9.7 fL (9.0-12.2); MONOCYTES # (AUTO) 0.7 10^3/uL (0.0-1.0); MONOCYTES % (AUTO) 11 % (0-12); NEUTROPHILS # (AUTO) 4.5 10^3/uL (1.8-7.8); NEUTROPHILS % (AUTO) 75 % (42-75); PLATELET COUNT 133 10^3/uL (130-400); WHITE BLOOD COUNT 5.9 10^3/uL (4.3-11.0)
[2022-03-02] MEDS: cefTRIAXone 2,000 MG/NS 50 ML IVPB IV SCH ×2 (09:43)
[2022-03-02] MEDS: VANCOMYCIN 1250 MG/NS 250 ML IVPB IV SCH ×2 (09:44)
[2022-03-02 09:52] LABS: ALBUMIN 3.4 GM/DL (3.2-4.5); BILIRUBIN,TOTAL 1.3 MG/DL (0.1-1.0); CALCIUM 9.3 MG/DL (8.5-10.1); CREATININE SERUM 0.88 MG/DL (0.60-1.30); POTASSIUM 4.2 MMOL/L (3.6-5.0); TOTAL PROTEIN 6.7 GM/DL (6.4-8.2)
[2022-03-02 09:59] LABS: VANCOMYCIN,TROUGH 13.6 UG/ML (10.0-20.0)
[2022-03-02 10:03] VITALS: BP 141/54
[2022-03-02 10:14] LABS: BAND NEUTROPHILS 0 %; BASOPHILS % (MANUAL) 1 %; EOSINOPHILS % (MANUAL) 5 %; LYMPHOCYTES % (MANUAL) 7 %; MONOCYTES % (MANUAL) 7 %; NEUTROPHILS % (MANUAL) 80 %
[2022-03-02 10:15] LABS: ANISOCYTOSIS MODERATE; POLYCHROMASIA MODERATE
[2022-03-02 10:25] LABS: ERYTHROCYTE SEDIMENTATION RATE 16 MM/HR (0-30)
[2022-03-03] MEDS: cefTRIAXone 2,000 MG/NS 50 ML IVPB IV SCH ×2 (09:18)
[2022-03-03] MEDS: VANCOMYCIN 1250 MG/NS 250 ML IVPB IV SCH ×2 (09:49)
[2022-03-03 11:15] VITALS: BP 141/71
[2022-03-04] MEDS: cefTRIAXone 2,000 MG/NS 50 ML IVPB IV SCH ×2 (09:05)
[2022-03-04 09:06] VITALS: BP 143/78
[2022-03-04] MEDS: VANCOMYCIN 1250 MG/NS 250 ML IVPB IV SCH ×2 (09:31)
[2022-03-04 10:54] VITALS: BP 143/78
[2022-03-05] MEDS: cefTRIAXone 2,000 MG/NS 50 ML IVPB IV SCH ×2 (09:14)
[2022-03-05 09:28] VITALS: BP 136/80
[2022-03-05] MEDS: VANCOMYCIN 1250 MG/NS 250 ML IVPB IV SCH ×2 (09:45)
[2022-03-06] MEDS: VANCOMYCIN 1250 MG/NS 250 ML IVPB IV SCH ×2 (09:13)
[2022-03-06 09:23] VITALS: BP 125/67
[2022-03-06] MEDS: cefTRIAXone 2,000 MG/NS 50 ML IVPB IV SCH ×2 (10:33)
[2022-03-07] MEDS: cefTRIAXone 2,000 MG/NS 50 ML IVPB IV SCH ×2 (09:06)
[2022-03-07] MEDS: VANCOMYCIN 1250 MG/NS 250 ML IVPB IV SCH ×2 (09:34)
[2022-03-07 11:05] VITALS: BP 134/78
[2022-03-08 09:05] VITALS: BP 132/81
[2022-03-08] MEDS: cefTRIAXone 2,000 MG/NS 50 ML IVPB IV SCH ×2 (09:09)
[2022-03-08] MEDS: VANCOMYCIN 1250 MG/NS 250 ML IVPB IV SCH ×2 (09:38)
[2022-03-09 09:39] LABS: HEMATOCRIT 40 % (40-54); HEMOGLOBIN 13.4 g/dL (13.3-17.7); MEAN CORPUSCULAR HEMOGLOBIN 33 pg (25-34); MEAN CORPUSCULAR HGB CONC 34 g/dL (32-36); MEAN CORPUSCULAR VOLUME 99 fL (80-99); MEAN PLATELET VOLUME 9.7 fL (9.0-12.2); PLATELET COUNT 143 10^3/uL (130-400); WHITE BLOOD COUNT 7.6 10^3/uL (4.3-11.0)
[2022-03-09] MEDS: VANCOMYCIN 1250 MG/NS 250 ML IVPB IV SCH ×2 (09:51)
[2022-03-09] MEDS: cefTRIAXone 2,000 MG/NS 50 ML IVPB IV SCH ×2 (09:51)
[2022-03-09 10:03] LABS: ERYTHROCYTE SEDIMENTATION RATE 18 MM/HR (0-30)
[2022-03-09 10:10] LABS: ALBUMIN 3.6 GM/DL (3.2-4.5); CALCIUM 9.7 MG/DL (8.5-10.1); CREATININE SERUM 1.18 MG/DL (0.60-1.30); POTASSIUM 4.2 MMOL/L (3.6-5.0); TOTAL PROTEIN 7.2 GM/DL (6.4-8.2)
[2022-03-09 10:15] VITALS: BP 128/70
[2022-03-09 10:15] LABS: VANCOMYCIN,TROUGH 15.8 UG/ML (10.0-20.0)
[2022-03-10] MEDS: cefTRIAXone 2,000 MG/NS 50 ML IVPB IV SCH ×2 (09:12)
[2022-03-10] MEDS: VANCOMYCIN 1250 MG/NS 250 ML IVPB IV SCH ×2 (09:38)
[2022-03-10 10:57] VITALS: BP 125/65
[2022-03-11] MEDS: VANCOMYCIN 1250 MG/NS 250 ML IVPB IV SCH ×2 (09:14)
[2022-03-11 10:00] VITALS: BP 129/82
[2022-03-11] MEDS: cefTRIAXone 2,000 MG/NS 50 ML IVPB IV SCH ×2 (10:32)
[2022-03-12] MEDS: cefTRIAXone 2,000 MG/NS 50 ML IVPB IV SCH ×2 (09:24)
[2022-03-12] MEDS: VANCOMYCIN 1250 MG/NS 250 ML IVPB IV SCH ×2 (09:25)
[2022-03-12 09:36] VITALS: BP 147/80
[2022-03-13] MEDS: cefTRIAXone 2,000 MG/NS 50 ML IVPB IV SCH ×2 (09:19)
[2022-03-13] MEDS: VANCOMYCIN 1250 MG/NS 250 ML IVPB IV SCH ×2 (09:46)
[2022-03-13 12:22] VITALS: BP 147/80
[2022-03-14 09:00] VITALS: BP 124/64
[2022-03-14] MEDS: cefTRIAXone 2,000 MG/NS 50 ML IVPB IV SCH ×2 (09:10)
[2022-03-14] MEDS: VANCOMYCIN 1250 MG/NS 250 ML IVPB IV SCH ×2 (09:23)
[2022-03-15 09:00] VITALS: BP 135/79
[2022-03-15] MEDS: cefTRIAXone 2,000 MG/NS 50 ML IVPB IV SCH ×2 (09:05)
[2022-03-15] MEDS: VANCOMYCIN 1250 MG/NS 250 ML IVPB IV SCH ×2 (09:35)
[2022-03-16 09:40] LABS: HEMATOCRIT 39 % (40-54); HEMOGLOBIN 13.1 g/dL (13.3-17.7); MEAN CORPUSCULAR HEMOGLOBIN 33 pg (25-34); MEAN CORPUSCULAR HGB CONC 34 g/dL (32-36); MEAN CORPUSCULAR VOLUME 98 fL (80-99); MEAN PLATELET VOLUME 9.6 fL (9.0-12.2); PLATELET COUNT 152 10^3/uL (130-400); WHITE BLOOD COUNT 6.4 10^3/uL (4.3-11.0)
[2022-03-16 09:56] LABS: ERYTHROCYTE SEDIMENTATION RATE 24 MM/HR (0-30)
[2022-03-16 09:58] LABS: ALBUMIN 3.6 GM/DL (3.2-4.5); BILIRUBIN,TOTAL 1.7 MG/DL (0.1-1.0); CALCIUM 9.4 MG/DL (8.5-10.1); POTASSIUM 4.1 MMOL/L (3.6-5.0); TOTAL PROTEIN 7.1 GM/DL (6.4-8.2)
[2022-03-16] MEDS: VANCOMYCIN 1250 MG/NS 250 ML IVPB IV SCH ×2 (10:01)
[2022-03-16] MEDS: cefTRIAXone 2,000 MG/NS 50 ML IVPB IV SCH ×2 (10:01)
[2022-03-16 10:18] VITALS: BP 148/86
[2022-03-17] MEDS: cefTRIAXone 2,000 MG/NS 50 ML IVPB IV SCH ×2 (09:18)
[2022-03-17] MEDS: VANCOMYCIN 1250 MG/NS 250 ML IVPB IV SCH ×2 (09:45)
[2022-03-17 11:02] VITALS: BP 135/81
[2022-03-18 09:45] VITALS: BP 143/76
[2022-03-18] MEDS: VANCOMYCIN 1250 MG/NS 250 ML IVPB IV SCH ×2 (09:56)
[2022-03-18] MEDS: cefTRIAXone 2,000 MG/NS 50 ML IVPB IV SCH ×2 (11:14)
[2022-03-19] MEDS: cefTRIAXone 2,000 MG/NS 50 ML IVPB IV SCH ×2 (09:18)
[2022-03-19] MEDS: VANCOMYCIN 1250 MG/NS 250 ML IVPB IV SCH ×2 (09:18)
[2022-03-19 09:20] VITALS: BP 144/84
[2022-03-20 09:00] VITALS: BP 131/72
[2022-03-20] MEDS: VANCOMYCIN 1250 MG/NS 250 ML IVPB IV SCH ×2 (09:10)
[2022-03-20] MEDS: cefTRIAXone 2,000 MG/NS 50 ML IVPB IV SCH ×2 (09:59)
[2022-03-21] MEDS: cefTRIAXone 2,000 MG/NS 50 ML IVPB IV SCH ×2 (09:11)
[2022-03-21] MEDS: VANCOMYCIN 1250 MG/NS 250 ML IVPB IV SCH ×2 (09:42)
[2022-03-21 09:50] VITALS: BP 115/75
[2022-03-22] MEDS: cefTRIAXone 2,000 MG/NS 50 ML IVPB IV SCH ×2 (09:05)
[2022-03-22] MEDS: VANCOMYCIN 1250 MG/NS 250 ML IVPB IV SCH ×2 (09:37)
[2022-03-22 09:47] VITALS: BP 132/70
[2022-03-23 09:00] VITALS: BP 149/79
[2022-03-23] MEDS: cefTRIAXone 2,000 MG/NS 50 ML IVPB IV SCH ×2 (09:10)
[2022-03-23 09:29] LABS: BASOPHILS % (AUTO) 0 % (0-10); EOSINOPHILS # (AUTO) 0.2 10^3/uL (0.0-0.3); EOSINOPHILS % (AUTO) 2 % (0-10); HEMATOCRIT 39 % (40-54); HEMOGLOBIN 13.1 g/dL (13.3-17.7); LYMPHOCYTES # (AUTO) 0.4 10^3/uL (1.0-4.0); LYMPHOCYTES % (AUTO) 4 % (12-44); MEAN CORPUSCULAR HEMOGLOBIN 33 pg (25-34); MEAN CORPUSCULAR HGB CONC 34 g/dL (32-36); MEAN CORPUSCULAR VOLUME 98 fL (80-99); MEAN PLATELET VOLUME 9.5 fL (9.0-12.2); MONOCYTES # (AUTO) 0.9 10^3/uL (0.0-1.0); MONOCYTES % (AUTO) 10 % (0-12); NEUTROPHILS # (AUTO) 7.3 10^3/uL (1.8-7.8); NEUTROPHILS % (AUTO) 83 % (42-75); PLATELET COUNT 146 10^3/uL (130-400); WHITE BLOOD COUNT 8.7 10^3/uL (4.3-11.0)
[2022-03-23] MEDS: VANCOMYCIN 1250 MG/NS 250 ML IVPB IV SCH ×2 (09:37)
[2022-03-23 09:48] LABS: ERYTHROCYTE SEDIMENTATION RATE 16 MM/HR (0-30)
[2022-03-23 09:51] LABS: ALBUMIN 3.5 GM/DL (3.2-4.5); BAND NEUTROPHILS 0 %; BASOPHILS % (MANUAL) 0 %; BILIRUBIN,TOTAL 1.7 MG/DL (0.1-1.0); CALCIUM 9.3 MG/DL (8.5-10.1); CREATININE SERUM 1.02 MG/DL (0.60-1.30); EOSINOPHILS % (MANUAL) 4 %; LYMPHOCYTES % (MANUAL) 1 %; MONOCYTES % (MANUAL) 10 %; NEUTROPHILS % (MANUAL) 85 %; TOTAL PROTEIN 6.8 GM/DL (6.4-8.2)
[2022-03-23 09:52] LABS: ANISOCYTOSIS SLIGHT; POLYCHROMASIA SLIGHT
[2022-03-23 09:56] LABS: VANCOMYCIN,TROUGH 14.1 UG/ML (10.0-20.0)
[2022-03-24] MEDS: cefTRIAXone 2,000 MG/NS 50 ML IVPB IV SCH ×2 (09:32)
[2022-03-24 09:36] VITALS: BP 142/80
[2022-03-24] MEDS: VANCOMYCIN 1250 MG/NS 250 ML IVPB IV SCH ×2 (10:02)
[2022-03-25] MEDS: cefTRIAXone 2,000 MG/NS 50 ML IVPB IV SCH ×2 (09:28)
[2022-03-25] MEDS: VANCOMYCIN 1250 MG/NS 250 ML IVPB IV SCH ×2 (09:29)
[2022-03-25 10:25] VITALS: BP 141/83
[~2022-03-26] VITALS: Ht 167.7 cm; Wt 69.5 kg
[~2022-03-26] MED LIST changes: +NS (IVPB) 50 ML ONE; -TROUGH ORDER-PHARMACY XX ONE; +cefTRIAXone 2,000 MG VIAL ONE
[2022-03-26 09:15] VITALS: BP 177/90
[2022-03-26] MEDS: VANCOMYCIN 1250 MG/NS 250 ML IVPB IV SCH ×2 (09:19)
[2022-03-26] MEDS: cefTRIAXone 2,000 MG/NS 50 ML IVPB IV SCH ×2 (10:39)
== END | disposition home or self-care (01) ==
LOC: SDC 02-25 08:00
PROVIDERS: ATTEND Internal Medicine Infectious Disease
DX: M86.8X7 Other osteomyelitis, ankle and foot (principal); B96.20 Unspecified Escherichia coli [E. coli] as the cause of diseases classified elsewhere; Z91.89 Other specified personal risk factors, not elsewhere classified
CPT/HCPCS: 36415; 80053; 80202; 85007; 85027; 85652; 86141; 96365; 96366; 96367; 99211

== ENCOUNTER 2022-04-19 22:48 | Emergency (ER) | payer MEDICARE, OTHER ==
[~2022-04-19] VITALS: Ht 167.7 cm; Wt 62.4 kg
[~2022-04-19 22:48] MED LIST changes: -NS (IVPB) 50 ML ONE; -VANCOMYCIN 1500 MG/NS 500 ML IVPB IV NR; -cefTRIAXone 2,000 MG VIAL ONE
--- NOTE | 2022-04-19 23:27 | ED General ---
General Stated Complaint: CATH PROBLEMS - NO URINE OUTPUT Source of Information: Patient Exam Limitations: No Limitations History of Present Illness Date Seen by Provider: Apr 19, 2022 Time Seen by Provider: 23:06 Initial Comments Patient is a 76-year-old male history of suprapubic catheter who presents to the emergency department with a chief complaint of "blocked catheter". Patient states he normally has it changed out every couple of weeks. Its been about 10 days since the last change. He noticed that it was not draining up properly at about 9 PM tonight. He has had progressive lower abdominal discomfort/pain. No nausea or vomiting. No chest pain or shortness of breath. No recent fevers or chills. Of note he is about 89% on room air when he presents to the emergency room but he denies feeling short of breath. All other review of systems reviewed and negative except as stated. Timing/Duration: 1-3 Hours Severity: Moderate Associated Systoms: Denies Symptoms Allergies and Home Medications Allergies Coded Allergies: No Known Drug Allergies (Unverified , 10/13/20) Patient Home Medication List Home Medication List Reviewed: Yes Aspirin (Aspir 81) 81 Mg Tablet.dr, 81 MG PO DAILY, (Reported) Entered as Reported by: EDDIE ABRAMS on 12/15/17 1605 Atorvastatin Calcium (Atorvastatin Calcium) 40 Mg Tablet, 40 MG PO DAILY, (Reported) Entered as Reported by: EDDIE ABRAMS on 12/15/17 1605 Ciprofloxacin HCl (Ciprofloxacin HCl) 500 Mg Tablet, 500 MG PO BID Prescribed by: KISHAN NGUYEN on 07/29/20 1436 Furosemide (Furosemide) 20 Mg Tablet, 20 MG PO DAILY, (Reported) Entered as Reported by: EDDIE ABRAMS on 12/15/17 1605 Gabapentin (Gabapentin) 300 Mg Capsule, 300 MG PO TID, (Reported) Entered as Reported by: EDDIE ABRAMS on 12/15/17 1605 Hydrocodone Bit/Acetaminophen (HYDROcodone/APAP 7.5/325 TAB) 1 Each Tablet, 1 TAB PO Q6H PRN for PAIN, (Reported) Entered as Reported by: EDDIE ABRAMS on 12/15/17 1605 Insulin NPH Hum/Reg Insulin Hm (Relion Novolin 70-30 Vial) 100 Unit/1 Ml Vial, 35 UNIT SQ MORNING, (Reported) Entered as Reported by: EDDIE ABRAMS on 12/15/17 1605 Insulin NPH Hum/Reg Insulin Hm (Relion Novolin 70-30 Vial) 100 Unit/1 Ml Vial, 30 UNIT SQ HS, (Reported) Entered as Reported by: EDDIE ABRAMS on 12/15/17 1605 Levothyroxine Sodium (Levothyroxine Sodium) 112 Mcg Tablet, 112 MCG PO DAILY, (Reported) Entered as Reported by: EDDIE ABRAMS on 12/15/17 1605 Lisinopril (Lisinopril) 10 Mg Tablet, 5 MG PO DAILY, (Reported) Entered as Reported by: EDDIE ABRAMS on 12/15/17 1605 Nitrofurantoin Macrocrystal (Nitrofurantoin) 100 Mg Capsule, 100 MG PO BID Prescribed by: LAZARO SEAMAN on 01/04/21 0823 Nitrofurantoin Monohyd/M-Cryst (Macrobid 100 mg Capsule) 100 Mg Capsule, 1 TAB PO BID Prescribed by: FRANCI SHARIF on 06/23/20 0102 Oxybutynin Chloride (Oxybutynin Chloride) 5 Mg Tablet, 5 MG PO TID, (Reported) Entered as Reported by: EDDIE ABRAMS on 12/15/17 1605 Potassium Chloride (Klor-Con M20) 20 Meq Tab.er.prt, 20 MEQ PO DAILY, (Reported) Entered as Reported by: EDDIE ABRAMS on 12/15/17 1605 Rifampin (Rifampin) 300 Mg Capsule, 300 MG PO BID, (Reported) Entered as Reported by: KANU WOODWARD on 06/26/20 1208 Sulfamethoxazole/Trimethoprim (Bactrim Ds Tablet) 1 Each Tablet, 1 EACH PO BID Prescribed by: LAZARO SEAMAN on 06/08/20 0642 Sulfamethoxazole/Trimethoprim (Sulfamethoxazole-Tmp Ss Tablet) 1 Each Tablet, 1 EACH PO BID Prescribed by: KISHAN NGUYEN on 07/29/20 1445 Sulfamethoxazole/Trimethoprim (Bactrim Ds Tablet) 1 Each Tablet, 1 EACH PO BID Prescribed by: GARRETT TONEY on 08/13/20 0511 Sulfamethoxazole/Trimethoprim (Bactrim Ds Tablet) 1 Each Tablet, 1 EACH PO BID Prescribed by: GARRETT TONEY on 08/28/20 2305 Sulfamethoxazole/Trimethoprim (Bactrim Ds Tablet) 1 Each Tablet, 1 EACH PO BID Prescribed by: LAZARO SEAMAN on 10/14/20 0018 Sulfamethoxazole/Trimethoprim (Bactrim Ds Tablet) 1 Each Tablet, 1 EACH PO BID Prescribed by: GARRETT TONEY on 11/16/20 0240 Sulfamethoxazole/Trimethoprim (Bactrim Ds Tablet) 1 Each Tablet, 1 EACH PO BID Prescribed by: FRANCI SHARIF on 12/15/20 0131 Vitamin B Complex (B Complex) 1 Each Tablet, 1 TAB PO DAILY, (Reported) Entered as Reported by: EDDIE ABRAMS on 12/15/17 1605 Review of Systems Review of Systems Constitutional: see HPI EENTM: no symptoms reported Respiratory: no symptoms reported Cardiovascular: no symptoms reported Gastrointestinal: abdominal pain Genitourinary: decreased output Musculoskeletal: no symptoms reported Skin: no symptoms reported Psychiatric/Neurological: No Symptoms Reported All Other Systems Reviewed Negative Unless Noted: Yes Past Uekclhn-Ongrue-Rxdrer Hx Immunizations Up To Date Tetanus Booster (TDap): Unknown Seasonal Allergies Seasonal Allergies: No Past Medical History Surgeries: Yes (MULTIPLE SKIN GRAFTS R LEG;SUPRAPUBIC CATH 2009;LYMPH NODE REM W/PROSTATE ) Abdominal, Amputation, Appendectomy, Bladder Surgery, Eye Surgery, Gallbladder, Orthopedic, Penile Implant, Prostatectomy Respiratory: Yes (POST OP MRSA PNEUMONIA/RESP FAILURE/VENTILATOR 2009) Cardiac: Yes High Cholesterol, Hypertension Neurological: No Reproductive Disorders: No Genitourinary: Yes (SUPRAPUBIC CATHETER SINCE 2009;PROSTATECTOMY/LYMPH NODE REMOVAL;PROSTATE CA) Prostate Problems, Renal Failure Gastrointestinal: Yes (S/P CHOLECYSTECTOMY; IBS-C) Gastroesophageal Reflux, Chronic Constipation, Pancreatitis, Gall Bladder Disease, Irritable Bowel Musculoskeletal: Yes (RIGHT TOE AMPUTATION;OSTEOMYELITIS R FOOT) Amputee, Arthritis, Chronic Back Pain Endocrine: Yes Diabetes, Insulin dep, Hypothyroidsim HEENT: No Cancer: Yes Prostate Did You Recieve Any Treatments: Yes What Type of Treatment Did You: Surgical Intervention Psychosocial: No Integumentary: Yes (CANNON WITH SKIN GRAFTS RIGHT LEG;OSTEOMYELITIS R FOOT;CHRONIC WOUNDS R FOOT) Blood Disorders: No Family Medical History No Pertinent Family Hx PSH: -EYE SURGERY -SKIN GRAFTS RIGHT LEG -RIGHT TOE AMPUTATION -PANCREAS SURGERY -PENILE IMPLANT -PROSTATECTOMY WITH LYMPH NODE REMOVAL -SUPRAPUBIC CATHETER 2009 -CHOLECYSTECTOMY -BRONCHOSCOPY 2009--POST OP RESP FAILURE/MRSA PNEUMONIA/VENTILATOR Physical Exam Vital Signs Vital Signs - First Documented 04/19/22 23:31 Temp 36.4 Pulse 106 Resp 24 B/P (MAP) 166/87 (113) Pulse Ox 94 O2 Delivery Nasal Cannula O2 Flow Rate 2.00 Capillary Refill : Height, Weight, BMI Height: 5'6.00" Weight: 170lbs. 0.0oz. 77.451959lv; 25.00 BMI Method:Stated General Appearance: Anxious, Chronically ill, Mild Distress, Thin Eyes: Bilateral Eye Normal Inspection, Bilateral Eye PERRL Neck: Normal Inspection Respiratory: Lungs Clear, Normal Breath Sounds, No Accessory Muscle Use, No Respiratory Distress Cardiovascular: Regular Rate, Rhythm Gastrointestinal: Distended, Tenderness (Suprapubic) Genital/Rectal: Other (Patient has suprapubic catheter in place with notable leakage of urine around the catheter insertion site. He has a 24 Syriac catheter) Extremity: Normal Inspection, Normal Range of Motion Neurologic/Psychiatric: Alert, Oriented x3, No Motor/Sensory Deficits Skin: Normal Color, Warm/Dry Progress/Results/Core Measures Suspected Sepsis SIRS Temperature: Pulse: Respiratory Rate: Blood Pressure / Mean: Results/Orders Vital Signs/I&O 04/19/22 23:31 Temp 36.4 Pulse 106 Resp 24 B/P (MAP) 166/87 (113) Pulse Ox 94 O2 Delivery Nasal Cannula O2 Flow Rate 2.00 Capillary Refill : Progress Note : Time: 23:52 Progress Note As we were going to change out the suprapubic catheter I deflated the bulb and his existing catheter and all of a sudden he started having rapid drainage and relief of his discomfort. I went ahead and continue to deflate the bulb and readjusted the catheter. He had significant drainage of urine about a liter or so. He feels much better. Existing catheter remained in place, I refilled the bulb and we watched him for about 10 minutes. He continues to have drainage of urine and feels much better. Will advise him to follow-up with his urologist. UA was not sent off today as I think this was a mechanical obstruction as opposed to an obstruction due to an infection. Patient is comfortable with plan of care. Departure Impression Primary Impression: Complication, suprapubic catheter obstruction Qualified Codes: T83.090A - Other mechanical complication of cystostomy catheter, initial encounter Disposition: HOME, SELF-CARE Condition: Improved Departure-Patient Inst. Decision time for Depature: 23:55 Referrals: NO,LOCAL PHYSICIAN (PCP/Family) Primary Care Physician Patient Instructions: How to Care for Your [place] Catheter Add. Discharge Instructions: Follow-up with your urologist as scheduled. Return to the emergency department for any new, or concerning complaints. KISHAN NGUYEN MD Apr 19, 2022 23:27
[2022-04-19 23:58] VITALS: BP 133/68
== END 2022-04-20 00:05 | disposition home or self-care (01) ==
LOC: EDUNIT# 22:48 → ER 22:53
DX: T83.090A Other mechanical complication of cystostomy catheter, initial encounter (principal); E11.9 Type 2 diabetes mellitus without complications; Z85.46 Personal history of malignant neoplasm of prostate; Z90.79 Acquired absence of other genital organ(s); Z90.49 Acquired absence of other specified parts of digestive tract; Z79.4 Long term (current) use of insulin
CPT/HCPCS: 99282

== ENCOUNTER 2023-02-25 02:12 | Emergency (ER) | payer MEDICARE, OTHER ==
[~2023-02-25] VITALS: Ht 167.7 cm; Wt 68.0 kg
--- NOTE | 2023-02-25 02:26 | ED GU-Male ---
General Chief Complaint: Catheter/Drain/Tube Problems Stated Complaint: BLOCKED CATHETER Source: patient, EMS, old records Exam Limitations: no limitations History of Present Illness Date Seen by Provider: Feb 25, 2023 Time Seen by Provider: 02:13 Initial Comments 77-year-old male with longstanding suprapubic catheter coming in due to it being blocked for him. He believes it was changed out Wednesday by home health. Earlier tonight he felt like the urine was not flowing through it and he noticed some sediment. He is having some fullness in his lower abdomen with pain. Denies any fever, nausea, vomiting, flank pain, or any other concerns. Allergies and Home Medications Allergies Coded Allergies: No Known Drug Allergies (Unverified , 10/13/20) Patient Home Medication List Home Medication List Reviewed: Yes Aspirin (Aspir 81) 81 Mg Tablet.dr, 81 MG PO DAILY, (Reported) Entered as Reported by: EDDIE ABRAMS on 12/15/17 1605 Atorvastatin Calcium (Atorvastatin Calcium) 40 Mg Tablet, 40 MG PO DAILY, (Reported) Entered as Reported by: EDDIE ABRAMS on 12/15/17 1605 Ciprofloxacin HCl (Ciprofloxacin HCl) 500 Mg Tablet, 500 MG PO BID Prescribed by: KISHAN NGUYEN on 07/29/20 1436 Furosemide (Furosemide) 20 Mg Tablet, 20 MG PO DAILY, (Reported) Entered as Reported by: EDDIE ABRAMS on 12/15/17 1605 Gabapentin (Gabapentin) 300 Mg Capsule, 300 MG PO TID, (Reported) Entered as Reported by: EDDIE ABRAMS on 12/15/17 1605 Hydrocodone Bit/Acetaminophen (HYDROcodone/APAP 7.5/325 TAB) 1 Each Tablet, 1 TAB PO Q6H PRN for PAIN, (Reported) Entered as Reported by: EDDIE ABRAMS on 12/15/17 1605 Insulin NPH Hum/Reg Insulin Hm (Relion Novolin 70-30 Vial) 100 Unit/1 Ml Vial, 35 UNIT SQ MORNING, (Reported) Entered as Reported by: EDDIE ABRAMS on 12/15/17 1605 Insulin NPH Hum/Reg Insulin Hm (Relion Novolin 70-30 Vial) 100 Unit/1 Ml Vial, 30 UNIT SQ HS, (Reported) Entered as Reported by: EDDIE ABRAMS on 12/15/17 1605 Levothyroxine Sodium (Levothyroxine Sodium) 112 Mcg Tablet, 112 MCG PO DAILY, (Reported) Entered as Reported by: EDDIE ABRAMS on 12/15/17 1605 Lisinopril (Lisinopril) 10 Mg Tablet, 5 MG PO DAILY, (Reported) Entered as Reported by: EDDIE ABRAMS on 12/15/17 1605 Nitrofurantoin Macrocrystal (Nitrofurantoin) 100 Mg Capsule, 100 MG PO BID Prescribed by: LAZARO SEAMAN on 01/04/21 0823 Nitrofurantoin Monohyd/M-Cryst (Macrobid 100 mg Capsule) 100 Mg Capsule, 1 TAB PO BID Prescribed by: FRANCI SHARIF on 06/23/20 0102 Oxybutynin Chloride (Oxybutynin Chloride) 5 Mg Tablet, 5 MG PO TID, (Reported) Entered as Reported by: EDDIE ABRAMS on 12/15/17 1605 Potassium Chloride (Klor-Con M20) 20 Meq Tab.er.prt, 20 MEQ PO DAILY, (Reported) Entered as Reported by: EDDIE ABRAMS on 12/15/17 1605 Rifampin (Rifampin) 300 Mg Capsule, 300 MG PO BID, (Reported) Entered as Reported by: KANU WOODWARD on 06/26/20 1208 Sulfamethoxazole/Trimethoprim (Bactrim Ds Tablet) 1 Each Tablet, 1 EACH PO BID Prescribed by: LAZARO SEAMAN on 06/08/20 0642 Sulfamethoxazole/Trimethoprim (Sulfamethoxazole-Tmp Ss Tablet) 1 Each Tablet, 1 EACH PO BID Prescribed by: KISHAN NGUYEN on 07/29/20 1445 Sulfamethoxazole/Trimethoprim (Bactrim Ds Tablet) 1 Each Tablet, 1 EACH PO BID Prescribed by: GARRETT TONEY on 08/13/20 0511 Sulfamethoxazole/Trimethoprim (Bactrim Ds Tablet) 1 Each Tablet, 1 EACH PO BID Prescribed by: GARRETT TONEY on 08/28/20 2305 Sulfamethoxazole/Trimethoprim (Bactrim Ds Tablet) 1 Each Tablet, 1 EACH PO BID Prescribed by: LAZARO SEAMAN on 10/14/20 0018 Sulfamethoxazole/Trimethoprim (Bactrim Ds Tablet) 1 Each Tablet, 1 EACH PO BID Prescribed by: GARRETT TONEY on 11/16/20 0240 Sulfamethoxazole/Trimethoprim (Bactrim Ds Tablet) 1 Each Tablet, 1 EACH PO BID Prescribed by: FRANCI SHARIF on 12/15/20 0131 Vitamin B Complex (B Complex) 1 Each Tablet, 1 TAB PO DAILY, (Reported) Entered as Reported by: EDDIE ABRAMS on 12/15/17 1605 Review of Systems Review of Systems Constitutional: No fever EENTM: no symptoms reported Respiratory: no symptoms reported Cardiovascular: no symptoms reported Gastrointestinal: no symptoms reported Genitourinary: see HPI Musculoskeletal: no symptoms reported Skin: no symptoms reported Psychiatric/Neurological: No Symptoms Reported Endocrine: No Symptoms Reported Hematologic/Lymphatic: No Symptoms Reported All Other Systemes Reviewed Negative Unless Noted: Yes Past Lqneene-Exaidc-Alntfi Hx Patient Social History Tobacco Use?: No Use of E-Cig and/or Vaping dev: No Substance use?: No Alcohol Use?: No Immunizations Up To Date Tetanus Booster (TDap): Unknown Seasonal Allergies Seasonal Allergies: No Past Medical History Surgery/Hospitalization HX: RIGHT BKA, SUPRAPUBIC CATHETER Surgeries: Yes (MULTIPLE SKIN GRAFTS R LEG;SUPRAPUBIC CATH 2009;LYMPH NODE REM W/PROSTATE ) Abdominal, Amputation, Appendectomy, Bladder Surgery, Eye Surgery, Gallbladder, Orthopedic, Penile Implant, Prostatectomy Respiratory: Yes (POST OP MRSA PNEUMONIA/RESP FAILURE/VENTILATOR 2009) Cardiac: Yes High Cholesterol, Hypertension Neurological: No Reproductive Disorders: No Genitourinary: Yes (SUPRAPUBIC CATHETER SINCE 2009;PROSTATECTOMY/LYMPH NODE REMOVAL;PROSTATE CA) Prostate Problems, Renal Failure Gastrointestinal: Yes (S/P CHOLECYSTECTOMY; IBS-C) Gastroesophageal Reflux, Chronic Constipation, Pancreatitis, Gall Bladder Disease, Irritable Bowel Musculoskeletal: Yes (RIGHT TOE AMPUTATION;OSTEOMYELITIS R FOOT) Amputee, Arthritis, Chronic Back Pain Endocrine: Yes Diabetes, Insulin dep, Hypothyroidsim HEENT: No Cancer: Yes Prostate Did You Recieve Any Treatments: Yes What Type of Treatment Did You: Surgical Intervention Psychosocial: No Integumentary: Yes (CANNON WITH SKIN GRAFTS RIGHT LEG;OSTEOMYELITIS R FOOT;CHRONIC WOUNDS R FOOT) Blood Disorders: No Family Medical History No Pertinent Family Hx PSH: -EYE SURGERY -SKIN GRAFTS RIGHT LEG -RIGHT TOE AMPUTATION -PANCREAS SURGERY -PENILE IMPLANT -PROSTATECTOMY WITH LYMPH NODE REMOVAL -SUPRAPUBIC CATHETER 2009 -CHOLECYSTECTOMY -BRONCHOSCOPY 2009--POST OP RESP FAILURE/MRSA PNEUMONIA/VENTILATOR Physical Exam Vital Signs Vital Signs - First Documented 02/25/23 02:13 Temp 36.3 Pulse 105 Resp 18 B/P (MAP) 181/97 (125) Pulse Ox 96 O2 Delivery Room Air Capillary Refill : Height, Weight, BMI Height: 5'6.00" Weight: 170lbs. 0.0oz. 77.897031dm; 22.00 BMI Method:Stated General Appearance: WD/WN, no apparent distress HEENT: PERRL/EOMI, normal ENT inspection, pharynx normal Neck: non-tender, full range of motion, supple, normal inspection Cardiovascular: regular rate, rhythm, no edema Respiratory: chest non-tender, lungs clear, normal breath sounds, no respiratory distress, no accessory muscle use Gastrointestinal: normal bowel sounds, soft; No distended, No guarding, No rebound; tenderness (Suprapubic fullness and tenderness) Back: normal inspection, no CVA tenderness Extremities: normal range of motion, non-tender, normal inspection, no pedal edema, no calf tenderness, normal capillary refill Neurologic/Psychiatric: no motor/sensory deficits, alert, normal mood/affect Skin: normal color, warm/dry Progress/Results/Core Measures Suspected Sepsis SIRS Temperature: Pulse: Respiratory Rate: Blood Pressure / Mean: Results/Orders Vital Signs/I&O 02/25/23 02:13 Temp 36.3 Pulse 105 Resp 18 B/P (MAP) 181/97 (125) Pulse Ox 96 O2 Delivery Room Air Capillary Refill : Progress Note : Progress Note 77-year-old male presenting due to suprapubic catheter feeling blocked. The blockage occurred shortly prior to arrival, not long enough to cause any kidney dysfunction. We will replace the catheter and have him follow-up as an outpatient with his regular provider. Patient is not having any infectious symptoms including he is not tachycardic, not febrile, and now that the urine is indeed from his bladder, he is not having any pain. Given he is correlated with bacteria, we will not send urinalysis since he does not have infectious symptoms. I believe he is otherwise stable for discharge as he is now improved. He was sent home with strict return precautions. Departure Impression Primary Impression: SUPRAPUBIC CATHETER REPLACEMENT Disposition: HOME, SELF-CARE Condition: Improved Departure-Patient Inst. Decision time for Depature: 02:50 Referrals: NO,LOCAL PHYSICIAN (PCP/Family) Primary Care Physician Patient Instructions: How to Care for Your Navarrete Catheter, Male Add. Discharge Instructions: Please follow-up with your regular doctor as you are scheduled, sooner if you begin having more frequent issues with your catheter. DMITRY NIEVES MD Feb 25, 2023 02:26
[2023-02-25 02:54] VITALS: BP 115/68
== END 2023-02-25 02:54 | disposition home or self-care (01) ==
LOC: EDUNIT# 02:12 → ER 02:13
DX: T83.098A Other mechanical complication of other urinary catheter, initial encounter (principal)
CPT/HCPCS: 51702

== ENCOUNTER 2023-03-15 09:41 | Emergency (ER) | payer MEDICARE, OTHER ==
[~2023-03-15] VITALS: Ht 167 cm; Wt 68.0 kg
--- NOTE | 2023-03-15 10:19 | ED GU-Male ---
General Chief Complaint: Catheter/Drain/Tube Problems Stated Complaint: CATHETER ISSUES Nursing Triage Note: PT ARRIVES TO ER VIA W/C. PT REPORTS HAD A SUPRAPUBIC CATHETER. HAD CHANGED AT UROLOGIST OFFICE ON WEDNESDAY AT [facility]. PT REPORTS STOPPED DRAINING THIS AM. REPORTS PREVIOUS HAD A 24 FR IN, 18 FR PLACED ON WEDNESDAY. Source: patient, old records Exam Limitations: no limitations History of Present Illness Date Seen by Provider: Mar 15, 2023 Time Seen by Provider: 09:46 Initial Comments 77-year-old male with chronic suprapubic catheter coming in due to blockage. He had a change 3 days ago with his urologist. Typically he has a 24 Mauritian, they had difficulty with this and had to place an 18 Mauritian. Noticed that feeling blocked a couple hours ago. Denies any fever, does have abdominal pain now that he is distended from his bladder, but did not have pain prior to that. Otherwise denies any other acute complaints. Allergies and Home Medications Allergies Coded Allergies: No Known Drug Allergies (Unverified , 10/13/20) Patient Home Medication List Home Medication List Reviewed: Yes Aspirin (Aspir 81) 81 Mg Tablet.dr, 81 MG PO DAILY, (Reported) Entered as Reported by: EDDIE ABRAMS on 12/15/17 1605 Atorvastatin Calcium (Atorvastatin Calcium) 40 Mg Tablet, 40 MG PO DAILY, (Reported) Entered as Reported by: EDDIE ABRAMS on 12/15/17 1605 Ciprofloxacin HCl (Ciprofloxacin HCl) 500 Mg Tablet, 500 MG PO BID Prescribed by: KISHAN NGUYEN on 07/29/20 1436 Furosemide (Furosemide) 20 Mg Tablet, 20 MG PO DAILY, (Reported) Entered as Reported by: EDDIE ABRAMS on 12/15/17 1605 Gabapentin (Gabapentin) 300 Mg Capsule, 300 MG PO TID, (Reported) Entered as Reported by: EDDIE ABRAMS on 12/15/17 1605 Hydrocodone Bit/Acetaminophen (HYDROcodone/APAP 7.5/325 TAB) 1 Each Tablet, 1 TAB PO Q6H PRN for PAIN, (Reported) Entered as Reported by: EDDIE ABRAMS on 12/15/17 1605 Insulin NPH Hum/Reg Insulin Hm (Relion Novolin 70-30 Vial) 100 Unit/1 Ml Vial, 35 UNIT SQ MORNING, (Reported) Entered as Reported by: EDDIE ABRAMS on 12/15/17 1605 Insulin NPH Hum/Reg Insulin Hm (Relion Novolin 70-30 Vial) 100 Unit/1 Ml Vial, 30 UNIT SQ HS, (Reported) Entered as Reported by: EDDIE ABRAMS on 12/15/17 1605 Levothyroxine Sodium (Levothyroxine Sodium) 112 Mcg Tablet, 112 MCG PO DAILY, (Reported) Entered as Reported by: EDDIE ABRAMS on 12/15/17 160 Lisinopril (Lisinopril) 10 Mg Tablet, 5 MG PO DAILY, (Reported) Entered as Reported by: EDDIE ABRAMS on 12/15/17 1605 Nitrofurantoin Macrocrystal (Nitrofurantoin) 100 Mg Capsule, 100 MG PO BID Prescribed by: LAZARO SEAMAN on 01/04/21 0823 Nitrofurantoin Monohyd/M-Cryst (Macrobid 100 mg Capsule) 100 Mg Capsule, 1 TAB PO BID Prescribed by: FRANCI SHARIF on 06/23/20 0102 Oxybutynin Chloride (Oxybutynin Chloride) 5 Mg Tablet, 5 MG PO TID, (Reported) Entered as Reported by: EDDIE ABRAMS on 12/15/17 160 Potassium Chloride (Klor-Con M20) 20 Meq Tab.er.prt, 20 MEQ PO DAILY, (Reported) Entered as Reported by: EDDIE ABRAMS on 12/15/17 160 Rifampin (Rifampin) 300 Mg Capsule, 300 MG PO BID, (Reported) Entered as Reported by: KANU WOODWARD on 06/26/20 1208 Sulfamethoxazole/Trimethoprim (Bactrim Ds Tablet) 1 Each Tablet, 1 EACH PO BID Prescribed by: LAZARO SEAMAN on 06/08/20 0642 Sulfamethoxazole/Trimethoprim (Sulfamethoxazole-Tmp Ss Tablet) 1 Each Tablet, 1 EACH PO BID Prescribed by: KISHAN NGUYEN on 07/29/20 1445 Sulfamethoxazole/Trimethoprim (Bactrim Ds Tablet) 1 Each Tablet, 1 EACH PO BID Prescribed by: GARRETT TONEY on 08/13/20 0511 Sulfamethoxazole/Trimethoprim (Bactrim Ds Tablet) 1 Each Tablet, 1 EACH PO BID Prescribed by: GARRETT TONEY on 08/28/20 2305 Sulfamethoxazole/Trimethoprim (Bactrim Ds Tablet) 1 Each Tablet, 1 EACH PO BID Prescribed by: LAZARO SEAMAN on 10/14/20 0018 Sulfamethoxazole/Trimethoprim (Bactrim Ds Tablet) 1 Each Tablet, 1 EACH PO BID Prescribed by: GARRETT TONEY on 11/16/20 0240 Sulfamethoxazole/Trimethoprim (Bactrim Ds Tablet) 1 Each Tablet, 1 EACH PO BID Prescribed by: FRANCI SHARIF on 12/15/20 0131 Vitamin B Complex (B Complex) 1 Each Tablet, 1 TAB PO DAILY, (Reported) Entered as Reported by: EDDIE ABRAMS on 12/15/17 1605 Review of Systems Review of Systems Constitutional: No fever EENTM: no symptoms reported Respiratory: no symptoms reported Cardiovascular: no symptoms reported Gastrointestinal: no symptoms reported Genitourinary: see HPI Past Fxedaum-Cmduav-Hwkmjs Hx Patient Social History Tobacco Use?: No Use of E-Cig and/or Vaping dev: No Substance use?: No Alcohol Use?: No Pt feels they are or have been: No Immunizations Up To Date Tetanus Booster (TDap): Unknown First/Initial COVID19 Vaccinat: RECEIVED, UNK WHEN Second COVID19 Vaccination Alok: RECEIVED, UNK WHEN Third COVID19 Vaccination Date: RECEIVED, UNK WHEN COVID19 Vaccine Administrative Services Specialist: UNK Seasonal Allergies Seasonal Allergies: No Past Medical History Surgery/Hospitalization HX: RIGHT BKA, SUPRAPUBIC CATHETER Surgeries: Yes (MULTIPLE SKIN GRAFTS R LEG;SUPRAPUBIC CATH 2009;LYMPH NODE REM W/PROSTATE ) Abdominal, Amputation, Appendectomy, Bladder Surgery, Eye Surgery, Gallbladder, Orthopedic, Penile Implant, Prostatectomy Respiratory: Yes (POST OP MRSA PNEUMONIA/RESP FAILURE/VENTILATOR 2009) Cardiac: Yes High Cholesterol, Hypertension Neurological: No Reproductive Disorders: No Genitourinary: Yes (SUPRAPUBIC CATHETER SINCE 2009;PROSTATECTOMY/LYMPH NODE REMOVAL;PROSTATE CA) Prostate Problems, Renal Failure Gastrointestinal: Yes (S/P CHOLECYSTECTOMY; IBS-C) Gastroesophageal Reflux, Chronic Constipation, Pancreatitis, Gall Bladder Disease, Irritable Bowel Musculoskeletal: Yes (RIGHT TOE AMPUTATION;OSTEOMYELITIS R FOOT) Amputee, Arthritis, Chronic Back Pain Endocrine: Yes Diabetes, Insulin dep, Hypothyroidsim HEENT: No Cancer: Yes Prostate Did You Recieve Any Treatments: Yes What Type of Treatment Did You: Surgical Intervention Psychosocial: No Integumentary: Yes (CANNON WITH SKIN GRAFTS RIGHT LEG;OSTEOMYELITIS R FOOT;CHRONIC WOUNDS R FOOT) Blood Disorders: No Family Medical History No Pertinent Family Hx PSH: -EYE SURGERY -SKIN GRAFTS RIGHT LEG -RIGHT TOE AMPUTATION -PANCREAS SURGERY -PENILE IMPLANT -PROSTATECTOMY WITH LYMPH NODE REMOVAL -SUPRAPUBIC CATHETER 2009 -CHOLECYSTECTOMY -BRONCHOSCOPY 2009--POST OP RESP FAILURE/MRSA PNEUMONIA/VENTILATOR Physical Exam Vital Signs Vital Signs - First Documented 03/15/23 09:44 Temp 35.0 Pulse 102 Resp 18 B/P (MAP) 138/82 (100) Pulse Ox 96 O2 Delivery Room Air Capillary Refill : Height, Weight, BMI Height: 5'6.00" Weight: 170lbs. 0.0oz. 77.634502il; 24.00 BMI Method:Stated General Appearance: WD/WN, mild distress HEENT: PERRL/EOMI, normal ENT inspection, pharynx normal Neck: non-tender, full range of motion, supple, normal inspection Cardiovascular: regular rate, rhythm Respiratory: chest non-tender, lungs clear, normal breath sounds, no respiratory distress, no accessory muscle use Gastrointestinal: normal bowel sounds, soft, tenderness (Suprapubic fullness, catheter not draining in the suprapubic region) Back: normal inspection, no CVA tenderness Extremities: normal range of motion, non-tender, normal capillary refill Neurologic/Psychiatric: no motor/sensory deficits, alert, normal mood/affect Progress/Results/Core Measures Suspected Sepsis SIRS Temperature: Pulse: 102 Respiratory Rate: 18 Blood Pressure 138 /82 Mean: 100 Results/Orders Vital Signs/I&O 03/15/23 09:44 Temp 35.0 Pulse 102 Resp 18 B/P (MAP) 138/82 (100) Pulse Ox 96 O2 Delivery Room Air Capillary Refill : 2 Blood Pressure Mean: 100 Progress Note : Progress Note 77-year-old male presenting due to suprapubic catheter blockage. ABCs were intact and vitals were stable on presentation. The catheter has been draining, stopped draining a couple hours ago. This is not long enough for me to be concerned about significant kidney injury. We replaced the catheter with an 18 Mauritian catheter here. He needs to follow-up with his urologist. Given his lack of fever and infectious symptoms as well as he is colonized with multiple bacteria, we will not order a urinalysis with micro at this time since he is not clinically showing signs of infection. Departure Impression Primary Impression: Blocked suprapubic catheter Qualified Codes: T83.090A - Other mechanical complication of cystostomy catheter, initial encounter Disposition: HOME, SELF-CARE Condition: Stable Departure-Patient Inst. Decision time for Depature: 10:25 Referrals: NO,LOCAL PHYSICIAN (PCP/Family) Primary Care Physician Patient Instructions: How to Care for Your Navarrete Catheter, Male Add. Discharge Instructions: Please follow back up with your urologist. If you develop any fever, severe abdominal pain despite the Navarrete draining, we would want you to be reevaluated. DMITRY NIEVES MD Mar 15, 2023 10:19
[2023-03-15 10:28] VITALS: BP 116/49
== END 2023-03-15 10:24 | disposition home or self-care (01) ==
LOC: EDUNIT# 09:41 → ER 09:43
DX: T83.098A Other mechanical complication of other urinary catheter, initial encounter (principal); E11.9 Type 2 diabetes mellitus without complications; Y82.9 Unspecified medical devices associated with adverse incidents; Z79.4 Long term (current) use of insulin
CPT/HCPCS: 51702

== ENCOUNTER 2023-03-25 22:01 | Emergency (ER) | payer MEDICARE, OTHER ==
[~2023-03-25] VITALS: Ht 167.7 cm; Wt 66.2 kg
[2023-03-25 22:25] VITALS: BP 113/73
--- NOTE | 2023-03-25 22:40 | ED GU-Male ---
General Chief Complaint: Catheter/Drain/Tube Problems Stated Complaint: CATHETER BLOCKED Nursing Triage Note: PT TO TRIAGE VIA WC W C/O LOWER ABD PAIN D/T URINARY CATHETER BLOCKAGE SX 1700 THIS PM. PT A&OX4. Source: patient History of Present Illness Date Seen by Provider: Mar 25, 2023 Time Seen by Provider: 22:36 Allergies and Home Medications Allergies Coded Allergies: No Known Drug Allergies (Unverified , 10/13/20) Patient Home Medication List Aspirin (Aspir 81) 81 Mg Tablet.dr, 81 MG PO DAILY, (Reported) Entered as Reported by: EDDIE ABRASM on 12/15/17 160 Atorvastatin Calcium (Atorvastatin Calcium) 40 Mg Tablet, 40 MG PO DAILY, (Reported) Entered as Reported by: EDDIE ABRAMS on 12/15/17 160 Ciprofloxacin HCl (Ciprofloxacin HCl) 500 Mg Tablet, 500 MG PO BID Prescribed by: KISHAN NGUYEN on 07/29/20 1436 Furosemide (Furosemide) 20 Mg Tablet, 20 MG PO DAILY, (Reported) Entered as Reported by: EDDIE ABRAMS on 12/15/17 1605 Gabapentin (Gabapentin) 300 Mg Capsule, 300 MG PO TID, (Reported) Entered as Reported by: EDDIE ABRAMS on 12/15/17 1605 Hydrocodone Bit/Acetaminophen (HYDROcodone/APAP 7.5/325 TAB) 1 Each Tablet, 1 TAB PO Q6H PRN for PAIN, (Reported) Entered as Reported by: EDDIE ABRAMS on 12/15/17 1605 Insulin NPH Hum/Reg Insulin Hm (Relion Novolin 70-30 Vial) 100 Unit/1 Ml Vial, 35 UNIT SQ MORNING, (Reported) Entered as Reported by: EDDIE ABRAMS on 12/15/17 160 Insulin NPH Hum/Reg Insulin Hm (Relion Novolin 70-30 Vial) 100 Unit/1 Ml Vial, 30 UNIT SQ HS, (Reported) Entered as Reported by: EDDIE ABRAMS on 12/15/17 1605 Levothyroxine Sodium (Levothyroxine Sodium) 112 Mcg Tablet, 112 MCG PO DAILY, (Reported) Entered as Reported by: EDDIE ABRAMS on 12/15/17 1605 Lisinopril (Lisinopril) 10 Mg Tablet, 5 MG PO DAILY, (Reported) Entered as Reported by: EDDIE ABRAMS on 12/15/17 1605 Nitrofurantoin Macrocrystal (Nitrofurantoin) 100 Mg Capsule, 100 MG PO BID Prescribed by: LAZARO SEAMAN on 01/04/21 0823 Nitrofurantoin Monohyd/M-Cryst (Macrobid 100 mg Capsule) 100 Mg Capsule, 1 TAB PO BID Prescribed by: FRANCI SHARIF on 06/23/20 0102 Oxybutynin Chloride (Oxybutynin Chloride) 5 Mg Tablet, 5 MG PO TID, (Reported) Entered as Reported by: EDDIE ABRAMS on 12/15/17 1605 Potassium Chloride (Klor-Con M20) 20 Meq Tab.er.prt, 20 MEQ PO DAILY, (Reported) Entered as Reported by: EDDIE ABRAMS on 12/15/17 1605 Rifampin (Rifampin) 300 Mg Capsule, 300 MG PO BID, (Reported) Entered as Reported by: KANU WOODWARD on 06/26/20 1208 Sulfamethoxazole/Trimethoprim (Bactrim Ds Tablet) 1 Each Tablet, 1 EACH PO BID Prescribed by: LAZARO SEAMAN on 06/08/20 0642 Sulfamethoxazole/Trimethoprim (Sulfamethoxazole-Tmp Ss Tablet) 1 Each Tablet, 1 EACH PO BID Prescribed by: KISHAN NGUYEN on 07/29/20 1445 Sulfamethoxazole/Trimethoprim (Bactrim Ds Tablet) 1 Each Tablet, 1 EACH PO BID Prescribed by: GARRETT TONEY on 08/13/20 0511 Sulfamethoxazole/Trimethoprim (Bactrim Ds Tablet) 1 Each Tablet, 1 EACH PO BID Prescribed by: GARRETT TONEY on 08/28/20 2305 Sulfamethoxazole/Trimethoprim (Bactrim Ds Tablet) 1 Each Tablet, 1 EACH PO BID Prescribed by: LAZARO SEAMAN on 10/14/20 0018 Sulfamethoxazole/Trimethoprim (Bactrim Ds Tablet) 1 Each Tablet, 1 EACH PO BID Prescribed by: GARRETT TONEY on 11/16/20 0240 Sulfamethoxazole/Trimethoprim (Bactrim Ds Tablet) 1 Each Tablet, 1 EACH PO BID Prescribed by: FRANCI SHARIF on 12/15/20 0131 Vitamin B Complex (B Complex) 1 Each Tablet, 1 TAB PO DAILY, (Reported) Entered as Reported by: EDDIE ABRAMS on 12/15/17 2235 Past Aofvgej-Kbyezs-Resvza Hx Patient Social History Tobacco Use?: No Use of E-Cig and/or Vaping dev: No Substance use?: No Alcohol Use?: No Immunizations Up To Date Tetanus Booster (TDap): Unknown First/Initial COVID19 Vaccinat: RECEIVED, UNK WHEN Second COVID19 Vaccination Alok: RECEIVED, UNK WHEN Third COVID19 Vaccination Date: RECEIVED, UNK WHEN Seasonal Allergies Seasonal Allergies: No Past Medical History Surgery/Hospitalization HX: RIGHT BKA, SUPRAPUBIC CATHETER Surgeries: Yes (MULTIPLE SKIN GRAFTS R LEG;SUPRAPUBIC CATH 2009;LYMPH NODE REM W/PROSTATE ) Abdominal, Amputation, Appendectomy, Bladder Surgery, Eye Surgery, Gallbladder, Orthopedic, Penile Implant, Prostatectomy Respiratory: Yes (POST OP MRSA PNEUMONIA/RESP FAILURE/VENTILATOR 2009) Cardiac: Yes High Cholesterol, Hypertension Neurological: No Reproductive Disorders: No Genitourinary: Yes (SUPRAPUBIC CATHETER SINCE 2009;PROSTATECTOMY/LYMPH NODE REMOVAL;PROSTATE CA) Prostate Problems, Renal Failure Gastrointestinal: Yes (S/P CHOLECYSTECTOMY; IBS-C) Gastroesophageal Reflux, Chronic Constipation, Pancreatitis, Gall Bladder Disease, Irritable Bowel Musculoskeletal: Yes (RIGHT TOE AMPUTATION;OSTEOMYELITIS R FOOT) Amputee, Arthritis, Chronic Back Pain Endocrine: Yes Diabetes, Insulin dep, Hypothyroidsim HEENT: No Cancer: Yes Prostate Did You Recieve Any Treatments: Yes What Type of Treatment Did You: Surgical Intervention Psychosocial: No Integumentary: Yes (CANNON WITH SKIN GRAFTS RIGHT LEG;OSTEOMYELITIS R EMILY T;CHRONIC WOUNDS R FOOT) Blood Disorders: No Family Medical History No Pertinent Family Hx PSH: -EYE SURGERY -SKIN GRAFTS RIGHT LEG -RIGHT TOE AMPUTATION -PANCREAS SURGERY -PENILE IMPLANT -PROSTATECTOMY WITH LYMPH NODE REMOVAL -SUPRAPUBIC CATHETER 2009 -CHOLECYSTECTOMY -BRONCHOSCOPY 2009--POST OP RESP FAILURE/MRSA PNEUMONIA/VENTILATOR Physical Exam Vital Signs Vital Signs - First Documented 03/25/23 22:25 Temp 36.1 Pulse 112 Resp 22 B/P (MAP) 113/73 (86) Pulse Ox 97 O2 Delivery Room Air Capillary Refill : Less Than 3 Seconds Height, Weight, BMI Height: 5'6.00" Weight: 170lbs. 0.0oz. 77.356745np; 23.00 BMI Method:Stated Progress/Results/Core Measures Suspected Sepsis SIRS Temperature: Pulse: 112 Respiratory Rate: 22 Blood Pressure 113 /73 Mean: 86 Results/Orders Vital Signs/I&O 03/25/23 22:25 Temp 36.1 Pulse 112 Resp 22 B/P (MAP) 113/73 (86) Pulse Ox 97 O2 Delivery Room Air Capillary Refill : Less Than 3 Seconds Blood Pressure Mean: 86 Departure Impression Primary Impression: Blocked suprapubic catheter Disposition: HOME, SELF-CARE Condition: Stable Departure-Patient Inst. Decision time for Depature: 22:39 Referrals: NO,LOCAL PHYSICIAN (PCP/Family) Primary Care Physician Patient Instructions: How to Care for Your Suprapubic Urinary Catheter Add. Discharge Instructions: KEEP ALL OF YOUR DOCTOR APPOINTMENTS TOMORROW SCHEDULED All discharge instructions reviewed with patient and/or family. Voiced understanding. FRANCI SHARIF DO Mar 25, 2023 22:40
[2023-03-26] MEDS ORDERED: LIDOCAINE UROJET 2% GEL 10 ML PKG TOP ONE (03:30)
== END 2023-03-25 22:56 | disposition home or self-care (01) ==
LOC: EDUNIT# 22:01 → ER 22:02
DX: T83.098A Other mechanical complication of other urinary catheter, initial encounter (principal); E11.9 Type 2 diabetes mellitus without complications; Z79.4 Long term (current) use of insulin
CPT/HCPCS: 51702

== ENCOUNTER 2023-04-05 12:00 | Emergency (ER) | payer MEDICARE, OTHER ==
[~2023-04-05] VITALS: Ht 167.7 cm; Wt 63.5 kg
--- NOTE | 2023-04-05 12:11 | ED GU-Male ---
General Chief Complaint: - Reproductive Stated Complaint: CATHETER ISSUES Nursing Triage Note: PT TO ED BY POV WITH SPOUSE WITH C/O CATHETER ISSUES. PT HAS HAD SUPRAPUBIC CATHETER SINCE 2010, LAST CHANGED 03/26 AT [facility]. PT REPORTS PAIN IN PENIS BEGINNING YESTERDAY. REPORTS DECREASED OUTPUT TODAY. Source: patient Exam Limitations: no limitations (DMITRY VIRGEN) History of Present Illness Date Seen by Provider: Apr 05, 2023 Time Seen by Provider: 12:09 Initial Comments Patient is a 77-year-old male who presents to ED for suprapubic catheter dysfunction. Patient states he feels like his catheter is clogged. States he has had decreased urine output with suprapubic and penile pain. Rates pain 10 out of 10. Patient gets his catheter replaced every 2 weeks at [facility]. Scheduled to get his catheter switched out on Wednesday. Does not produce urine through his penis. Reports decreased urine output today. Denies fever, chills, nausea, vomiting, diarrhea. Similar symptoms in the past (DMITRY VIRGEN) Allergies and Home Medications Allergies Coded Allergies: No Known Drug Allergies (Unverified , 10/13/20) Patient Home Medication List Home Medication List Reviewed: Yes (DMITRY VIRGEN) Aspirin (Aspir 81) 81 Mg Tablet.dr, 81 MG PO DAILY, (Reported) Entered as Reported by: EDDIE ABRAMS on 12/15/17 1605 Atorvastatin Calcium (Atorvastatin Calcium) 40 Mg Tablet, 40 MG PO DAILY, (Reported) Entered as Reported by: EDDIE ABRAMS on 12/15/17 1605 Cephalexin (Cephalexin) 500 Mg Tablet, 500 MG PO BID Prescribed by: MCKAYLA RIZVI on 04/05/23 1316 Ciprofloxacin HCl (Ciprofloxacin HCl) 500 Mg Tablet, 500 MG PO BID Prescribed by: KISHAN NGUYEN on 07/29/20 1436 Furosemide (Furosemide) 20 Mg Tablet, 20 MG PO DAILY, (Reported) Entered as Reported by: EDDIE ABRAMS on 12/15/17 1605 Gabapentin (Gabapentin) 300 Mg Capsule, 300 MG PO TID, (Reported) Entered as Reported by: EDDIE ABRAMS on 12/15/17 1605 Hydrocodone Bit/Acetaminophen (HYDROcodone/APAP 7.5/325 TAB) 1 Each Tablet, 1 TAB PO Q6H PRN for PAIN, (Reported) Entered as Reported by: EDDIE ABRAMS on 12/15/17 1605 Insulin NPH Hum/Reg Insulin Hm (Relion Novolin 70-30 Vial) 100 Unit/1 Ml Vial, 35 UNIT SQ MORNING, (Reported) Entered as Reported by: EDDIE ABRAMS on 12/15/17 1605 Insulin NPH Hum/Reg Insulin Hm (Relion Novolin 70-30 Vial) 100 Unit/1 Ml Vial, 30 UNIT SQ HS, (Reported) Entered as Reported by: EDDIE ABRAMS on 12/15/17 160 Levothyroxine Sodium (Levothyroxine Sodium) 112 Mcg Tablet, 112 MCG PO DAILY, (Reported) Entered as Reported by: EDDIE ABRAMS on 12/15/17 160 Lisinopril (Lisinopril) 10 Mg Tablet, 5 MG PO DAILY, (Reported) Entered as Reported by: EDDIE ABRAMS on 12/15/17 160 Nitrofurantoin Macrocrystal (Nitrofurantoin) 100 Mg Capsule, 100 MG PO BID Prescribed by: LAZARO SEAMAN on 01/04/21 0823 Nitrofurantoin Monohyd/M-Cryst (Macrobid 100 mg Capsule) 100 Mg Capsule, 1 TAB PO BID Prescribed by: FRANCI SHARIF on 06/23/20 0102 Oxybutynin Chloride (Oxybutynin Chloride) 5 Mg Tablet, 5 MG PO TID, (Reported) Entered as Reported by: EDDIE ABRAMS on 12/15/17 160 Potassium Chloride (Klor-Con M20) 20 Meq Tab.er.prt, 20 MEQ PO DAILY, (Reported) Entered as Reported by: EDDIE ABRAMS on 12/15/17 1605 Rifampin (Rifampin) 300 Mg Capsule, 300 MG PO BID, (Reported) Entered as Reported by: KANU WOODWARD on 06/26/20 1208 Sulfamethoxazole/Trimethoprim (Bactrim Ds Tablet) 1 Each Tablet, 1 EACH PO BID Prescribed by: LAZARO SEAMAN on 06/08/20 0642 Sulfamethoxazole/Trimethoprim (Sulfamethoxazole-Tmp Ss Tablet) 1 Each Tablet, 1 EACH PO BID Prescribed by: KISHAN NGUYEN on 07/29/20 1445 Sulfamethoxazole/Trimethoprim (Bactrim Ds Tablet) 1 Each Tablet, 1 EACH PO BID Prescribed by: GARRETT TONEY on 08/13/20 0511 Sulfamethoxazole/Trimethoprim (Bactrim Ds Tablet) 1 Each Tablet, 1 EACH PO BID Prescribed by: GARRETT TONEY on 08/28/20 2305 Sulfamethoxazole/Trimethoprim (Bactrim Ds Tablet) 1 Each Tablet, 1 EACH PO BID Prescribed by: LAZARO SEAMAN on 10/14/20 0018 Sulfamethoxazole/Trimethoprim (Bactrim Ds Tablet) 1 Each Tablet, 1 EACH PO BID Prescribed by: GARRETT TONEY on 11/16/20 0240 Sulfamethoxazole/Trimethoprim (Bactrim Ds Tablet) 1 Each Tablet, 1 EACH PO BID Prescribed by: FRANCI SHARIF on 12/15/20 0131 Vitamin B Complex (B Complex) 1 Each Tablet, 1 TAB PO DAILY, (Reported) Entered as Reported by: EDDIE ABRAMS on 12/15/17 1605 Review of Systems Review of Systems Constitutional: No chills, No diaphoresis EENTM: No ear pain, No double vision Respiratory: No cough, No dyspnea on exertion Cardiovascular: No chest pain Gastrointestinal: abdominal pain; No diarrhea, No vomiting Genitourinary: burning; denies discharge, denies dysuria, denies frequency Musculoskeletal: No back pain, No joint pain Skin: No change in color, No change in hair/nails (DMITRY VIRGEN) All Other Systemes Reviewed Negative Unless Noted: Yes (DMITRY VIRGEN) Past Alyqilq-Wzmdok-Xpajph Hx Immunizations Up To Date Tetanus Booster (TDap): Unknown First/Initial COVID19 Vaccinat: RECEIVED, UNK WHEN Second COVID19 Vaccination Alok: RECEIVED, UNK WHEN Third COVID19 Vaccination Date: RECEIVED, UNK WHEN (DMITRY VIRGEN) Seasonal Allergies Seasonal Allergies: No (DMITRY VIRGEN) Past Medical History Surgery/Hospitalization HX: RIGHT BKA, SUPRAPUBIC CATHETER Surgeries: Yes (MULTIPLE SKIN GRAFTS R LEG;SUPRAPUBIC CATH 2009;LYMPH NODE REM W/PROSTATE ) Abdominal, Amputation, Appendectomy, Bladder Surgery, Eye Surgery, Gallbladder, Orthopedic, Penile Implant, Prostatectomy Respiratory: Yes (POST OP MRSA PNEUMONIA/RESP FAILURE/VENTILATOR 2009) Cardiac: Yes High Cholesterol, Hypertension Neurological: No Reproductive Disorders: No Genitourinary: Yes (SUPRAPUBIC CATHETER SINCE 2009;PROSTATECTOMY/LYMPH NODE REMOVAL;PROSTATE CA) Prostate Problems, Renal Failure Gastrointestinal: Yes (S/P CHOLECYSTECTOMY; IBS-C) Gastroesophageal Reflux, Chronic Constipation, Pancreatitis, Gall Bladder Disease, Irritable Bowel Musculoskeletal: Yes (RIGHT TOE AMPUTATION;OSTEOMYELITIS R FOOT) Amputee, Arthritis, Chronic Back Pain Endocrine: Yes Diabetes, Insulin dep, Hypothyroidsim HEENT: No Cancer: Yes Prostate Did You Recieve Any Treatments: Yes What Type of Treatment Did You: Surgical Intervention Psychosocial: No Integumentary: Yes (CANNON WITH SKIN GRAFTS RIGHT LEG;OSTEOMYELITIS R FOOT;CH RONIC WOUNDS R FOOT) Blood Disorders: No (DMITRY VIRGEN) Family Medical History No Pertinent Family Hx PSH: -EYE SURGERY -SKIN GRAFTS RIGHT LEG -RIGHT TOE AMPUTATION -PANCREAS SURGERY -PENILE IMPLANT -PROSTATECTOMY WITH LYMPH NODE REMOVAL -SUPRAPUBIC CATHETER 2009 -CHOLECYSTECTOMY -BRONCHOSCOPY 2009--POST OP RESP FAILURE/MRSA PNEUMONIA/VENTILATOR (DMITRY VIRGEN) Physical Exam Vital Signs Vital Signs - First Documented 04/05/23 12:02 Temp 36.2 Pulse 105 Resp 18 B/P (MAP) 142/83 (102) Pulse Ox 94 O2 Delivery Room Air (ELIZABETH URRUTIA MD) Vital Signs Capillary Refill : Less Than 3 Seconds (DMITRY VIRGEN) Height, Weight, BMI Height: 5'6.00" Weight: 170lbs. 0.0oz. [id number]; 22.00 BMI Method:Stated General Appearance: WD/WN, no apparent distress HEENT: PERRL/EOMI, normal ENT inspection, TMs normal, pharynx normal Neck: non-tender, full range of motion, supple, normal inspection Cardiovascular: regular rate, rhythm, no edema, no gallop, no JVD Respiratory: chest non-tender, lungs clear, normal breath sounds, no respiratory distress Gastrointestinal: normal bowel sounds, soft, no organomegaly, tenderness (suprapubic tenderness) Back: normal inspection Extremities: normal range of motion, non-tender, normal inspection, no pedal edema Neurologic/Psychiatric: button cutter II-XII nml as tested, no motor/sensory deficits, alert, normal mood/affect Skin: normal color (DMITRY VIRGEN) Progress/Results/Core Measures Suspected Sepsis SIRS Temperature: Pulse: 105 Respiratory Rate: 18 Blood Pressure 142 /83 Mean: 102 (DMITYR VIRGEN) Results/Orders Lab Results Laboratory Tests Test 04/05/23 12:50 Range/Units Urine Color YELLOW Urine Clarity CLEAR Urine pH 6.5 5-9 Urine Specific Tram 1.010 L 1.016-1.022 Urine Protein 1+ H NEGATIVE Urine Glucose (UA) NEGATIVE NEGATIVE Urine Ketones NEGATIVE NEGATIVE Urine Nitrite NEGATIVE NEGATIVE Urine Bilirubin NEGATIVE NEGATIVE Urine Urobilinogen 1.0 < = 1.0 MG/DL Urine Leukocyte Esterase 3+ H NEGATIVE Urine RBC (Auto) 1+ H NEGATIVE Urine RBC 0-2 /HPF Urine WBC 5-10 H /HPF Urine Squamous Epithelial Cells RARE /HPF Urine Crystals NONE /LPF Urine Bacteria LARGE H /HPF Urine Casts NONE /LPF Urine Mucus NEGATIVE /LPF Urine Culture Indicated YES (ELIZABETH URRUTIA MD) Medications Given in ED Current Medications Medications Dose Ordered Sig/Rebekah Route Start Time Stop Time Status Last Admin Dose Admin Ceftriaxone Sodium 1,000 mg ONCE ONCE IM 04/05/23 13:15 04/05/23 13:16 DC 04/05/23 13:22 1,000 MG Lidocaine HCl 2.1 ml ONCE ONCE INJ 04/05/23 13:15 04/05/23 13:16 DC 04/05/23 13:22 2.1 ML (ELIZABETH URRUTIA MD) Vital Signs/I&O 04/05/23 04/05/23 12:02 13:30 Temp 36.2 Pulse 105 88 Resp 18 B/P (MAP) 142/83 (102) 128/70 Pulse Ox 94 93 O2 Delivery Room Air Room Air (ELIZABETH URRUTIA MD) Vital Signs/I&O Capillary Refill : Less Than 3 Seconds (DMITRY VIRGEN) Blood Pressure Mean: 102 Departure Communication (PCP) Patient with a suprapubic catheter. Gets his catheter replaced every 2 weeks. Concern for decreased urine output suprapubic discomfort. Differential diagnosis UTI versus blocked dysfunctional suprapubic catheter. Does have lower suprapubic tenderness. Patient denies fever, chills, bodies, chest pain or shortness of breath. Bladder scan showed around 400 ml. Replaced with 24 [place] catheter. Drained near 500 ml of urine. Significant mount of sediment noted. Improvement of pain. Patient vital signs were stable. Urinalysis was obtained which was positive for +3 leukocytes, white blood cell and bacteria concern for UTI. Susceptible to Rocephin in the past. Will discharge with Keflex. Provided a dose of Rocephin here. Recommend recheck with urinalysis in 2 to 3 days with his primary care physician. Schedule follow-up with [facility] urology on Wednesday. If any worsening symptoms such as decreased urine output, fever, chills return back to ED. Patient pain improved. Catheter is draining at this time. Patient does not appear toxic or septic. (DMITRY VIRGEN) Impression Primary Impression: Blocked suprapubic catheter Additional Impression: Urinary tract infection Disposition: HOME, SELF-CARE Condition: Stable Departure-Patient Inst. Decision time for Depature: 13:16 (DMITRY VIRGEN) Referrals: [facility],LOCAL PHYSICIAN (PCP) Primary Care Physician Patient Instructions: Urinary Tract Infection, Adult (DC) Add. Discharge Instructions: Recommend following up with urologist on Wednesday. If any worsening symptoms return back to ED such as fever, chills, decreased urine output All discharge instructions reviewed with patient and/or family. Voiced un derstanding. Scripts Cephalexin (Cephalexin) 500 Mg Tablet 500 MG PO BID for 10 Days, #20 TAB Prov: DMITRY VIRGEN 04/05/23 ATTENDING PHYSICIAN NOTE: I was physically present as attending physician in the emergency department during the care of this patient, but I was not directly involved in the decision making or delivery of care for this patient. (ELIZABETH URRUTIA MD) DMITRY VIRGEN Apr 05, 2023 12:11 ELIZABETH URRUTIA MD Apr 05, 2023 21:10
[2023-04-05 12:57] LABS: BILIRUBIN,URINE NEGATIVE (NEGATIVE); CLARITY,URINE CLEAR; COLOR,URINE YELLOW; GLUCOSE, URINE (UA) NEGATIVE (NEGATIVE); KETONES,URINE NEGATIVE (NEGATIVE); LEUKOCYTE ESTERASE ,URINE 3+ (NEGATIVE); NITRITE,URINE NEGATIVE (NEGATIVE); PH,URINE 6.5 (5-9); PROTEIN,URINE 1+ (NEGATIVE)
[2023-04-05 13:06] LABS: BACTERIA,URINE LARGE /HPF; RBC,URINE 0-2 /HPF; SQUAMOUS EPITHELIAL CELL,UR RARE /HPF
[2023-04-05] MEDS ORDERED: cefTRIAXone 1,000 MG VIAL (for IV or IM) IM ONE (13:15)
[2023-04-05] MEDS ORDERED: LIDOCAINE 1% INJ 20 ML VIAL INJ ONE (13:15)
[2023-04-05] MEDS ORDERED: CEPH500T PO (13:16)
[2023-04-05 13:30] VITALS: BP 128/70
== END 2023-04-05 13:30 | disposition home or self-care (01) ==
LOC: EDUNIT# 12:00 → ER 12:01
DX: T83.098A Other mechanical complication of other urinary catheter, initial encounter (principal); N39.0 Urinary tract infection, site not specified; E11.9 Type 2 diabetes mellitus without complications; Z79.4 Long term (current) use of insulin
CPT/HCPCS: 51702; 81000; 87077; 87088